=== PATIENT | female | born 1955 | race Caucasian/White ===

== ENCOUNTER 2016-08-15 11:24 | Emergency (ER) | payer OTHER ==
[2016-08-15] MEDS ORDERED: ASPIRIN 81 MG CHEW TABLET As Ordered ONE (11:50)
[2016-08-15 12:17] LABS: BASO % 0.6 % (0.0-1.0); EOS # 0.1 K/mm3 (0.0-0.50); EOS % 1.8 % (0.0-3.0); LARGE UNSTAINED CELL # 0.1 K/mm3 (0.0-0.4); LYMPH # 1.1 K/mm3 (1.5-4.5); MEAN CORPUSCULAR HEMOGLOBIN 29.7 pg (27.0-33.0); MEAN CORPUSCULAR HGB CONC 33.3 g/dl (32.0-36.5); MEAN CORPUSCULAR VOLUME 89.2 fl (80.0-96.0); MONO # 0.3 K/mm3 (0.0-0.8); MONO % 5.9 % (0.0-5.0); NEUTROPHILS # 3.7 K/mm3 (1.8-7.7); NEUTROPHILS % 69.7 % (36.0-66.0); PLATELET COUNT, AUTOMATED 148 k/mm3 (150-450); RED CELL DISTRIBUTION WIDTH 13.5 % (11.5-14.5); WHITE BLOOD COUNT 5.3 K/mm3 (4.0-10.0)
[2016-08-15 12:21] LABS: ANION GAP 9 MEQ/L (8-16); BLOOD UREA NITROGEN 18 MG/DL (7-18); CALCIUM LEVEL 8.5 MG/DL (8.5-10.1); CARBON DIOXIDE LEVEL 25 MEQ/L (21-32); CHLORIDE LEVEL 106 MEQ/L (98-107); GLOMERULAR FILTRATION RATE > 60.0 (>51); GLUCOSE, FASTING 149 MG/DL (70-105); POTASSIUM SERUM 3.5 MEQ/L (3.5-5.1); SODIUM LEVEL 140 MEQ/L (136-145)
[2016-08-15] MEDS ORDERED: methylPREDNISolone INJ 125 MG/2 ML VIAL (J2930) As Ordered ONE (12:42)
--- NOTE | 2016-08-15 12:44 | REP ---
SINGLE VIEW CHEST: AP portable view of the chest is performed and compared to a prior study of 11/22/2015. There is no acute infiltrate or pulmonary edema. The heart is normal in size. There is mild calcification of the thoracic aorta. There is curvature of the thoracic spine convex to the right with degenerative changes. IMPRESSION: No evidence of acute infiltrate. Signed by Denny Roque MD 08/15/2016 06:31 P
[2016-08-15] MEDS ORDERED: IPRATROPIUM 0.5MG/ALBUTEROL 2.5MG INH SOL UD 3ML (DUONEB)(J7620) As Ordered ONE (12:47)
[2016-08-15] MEDS ORDERED: ALBUTEROL SULFATE 2.5 MG/0.5 ML INH NEB SOLN As Ordered ONE (12:48)
[2016-08-15] MEDS ORDERED: ACETAMINOPHEN 325 MG TAB As Ordered ONE (13:06)
--- NOTE | 2016-08-15 15:30 | EDDOCDS ---
Physician Documentation [facility] Name: Janet Jeong Age: 60 yrs Sex: Female : 1955 Arrival Date: 08/15/2016 Time: 11:24 Bed 6 Private MD: Ranulfo Morgan Disposition: 08/15/16 15:09 Discharged to Home/Self Care. Impression: Chronic obstructive pulmonary disease, unspecified. - Condition is Stable. - Discharge Instructions: Chronic Obstructive Pulmonary Disease, How to Use an Inhaler. - Prescriptions for Prednisone 20 mg Oral Tablet - take 3 tablets by ORAL route once daily for 4 days; 12 tablet. Combivent Respimat 20- 100 mcg/actuation Inhalation Mist - inhale 1 puff by INHALATION route 4 times per day not to exceed 6 puffs in 24hrs; 1 Inhaler. Tussionex Pennkinetic ER 8- 10 mg/5 mL Oral Suspension, Sust. Release 12 hr - take 5 milliliter by ORAL route every 12 hours As needed; 120 milliliter. - Medication Reconciliation, Local Pharmacy Hours form. - [facility] up[facility]; When: Call to arrange an appointment; Reason: Recheck today's complaints, Continuance of care. - Problem is an acute exacerbation. - Symptoms have improved. - Notes: Keep hydrated Use the puffer every 4-6 hours as needed Return to the ED for worsening shortness of breath, fever or any other concerns Historical: - Allergies: Augmentin; - Home Meds: 1. aspirin 81 mg Oral chew 1 tab once daily (Last dose: 08/15/2016) 2. lisinopril 40 mg Oral tab 1 tab once daily (Last dose: 08/15/2016) 3. metformin 1,000 mg Oral tab 1 tab 2 times per day (Last dose: 08/15/2016) 4. Protonix 20 mg Oral TbEC 1 tab 2 times per day (Last dose: 08/15/2016) 5. atorvastatin 80 mg oral tab 1 tab once daily (Last dose: 08/15/2016) 6. chlorthalidone 25 mg Oral tab 0.5 tab once daily (Last dose: 08/15/2016) 7. Flonase 50 mcg/actuation Nasal spsn 1 spray once daily 8. loratadine 10 mg Oral tab 1 tab once daily (Last dose: 08/15/2016) 9. montelukast 10 mg oral tab once daily (Last dose: 08/15/2016) 10. Mobic 7.5 mg oral tab twice a day (Last dose: 08/15/2016) 11. encrece inhaler daily (Last dose: 08/15/2016) 12. AYR saline nasal gel each nostril as needed as directed - PMHx: Asthma; Arthritis; COPD; Depression; Diabetes - NIDDM: controlled; Hypercholesterolemia; Hypertension; multiple joint pain; - PSHx: Bladder suspension; Carpal Tunnel Repair- Bilateral; ulnar surgery left elbow; - Social history: Smoking status: Patient uses tobacco products, current every day smoker. No barriers to communication noted, The patient speaks fluent Greenlandic, Speaks appropriately for age. - Family history: Not pertinent. - : The pt / caregiver states he / she is not on anticoagulants. Home medication list is obtained from the patient, [employer] import data. - Exposure Risk Screening:: None identified. Vital Signs: 08/15 11:26 BP 152 / 83; Pulse 92; Resp 18; Temp 98.9(O); Pulse Ox 97% on R/A; Weight 92.08 kg / dem1 203 lbs; Height 5 ft. 3 in. (160.02 cm); Pain 7/10; 12:09 BP 151 / 71 (auto/); kr3 12:10 Pulse 80 MON; Pulse Ox 93% ; kr3 12:43 BP 133 / 66 (auto/); kr3 12:44 Pulse 76 MON; Pulse Ox 96% ; kr3 13:09 BP 133 / 61 (auto/); kr3 13:10 Pulse 84 MON; Pulse Ox 95% ; kr3 13:39 BP 134 / 63 (auto/); kr3 13:40 Pulse 86 MON; Pulse Ox 92% ; kr3 13:48 Pain 2/10; kr3 14:09 BP 137 / 61 (auto/); kr3 14:10 Pulse 88 MON; Pulse Ox 94% ; kr3 14:39 BP 129 / 62 (auto/); jmb 14:40 Pulse 82 MON; Pulse Ox 91% ; jmb 15:22 BP 134 / 63; Pulse 85; Resp 18; Temp 97.7(TE); Pulse Ox 94% on R/A; Pain 3/10; dem1 11:26 Body Mass Index 35.96 (92.08 kg, 160.02 cm) dem1 MDM: 11:30 ECG WITH READING ER PHYS+CARDIAG ordered. EDMS 11:39 Aspirin Chewable Tablet 324 mg PO once ordered. fg 11:39 Asphalt Engineer/Pulse Ox/q 30 min VS ordered. fg 11:39 IV Saline Lock ordered. fg 11:39 Rhythm Strip to chart ordered. fg 11:39 Undress patient appropriately for examination ordered. fg 11:40 B-Type Natiuretic Peptide Ordered. EDMS 11:40 Basic Metabolic Profile Ordered. EDMS 11:40 CBC with Diff Ordered. EDMS 11:40 Cardiac Injury Profile Ordered. EDMS 11:40 Troponin Ordered. EDMS 11:41 portable chest Ordered. EDMS 12:29 D-Dimer Quant Ordered. EDMS 12:35 Albuterol 5 mg Nebulizer once ordered. le 12:35 Albuterol-Ipratropium 3 ml Inhalation once ordered. le 12:35 Call Respiratory ordered. le 12:35 Solu-MEDROL 125 mg IVP once ordered. le 12:35 Basic Metabolic Profile Reviewed. le 12:35 CBC with Diff Reviewed. le 12:35 Cardiac Injury Profile Reviewed. le 12:35 Troponin Reviewed. le 12:36 CONSISTENT CARBOHYDRATE+DIET ordered. EDMS 12:41 Call Respiratory complete. kr3 12:54 Acetaminophen Tablet 975 mg PO once ordered. le 12:54 B-Type Natiuretic Peptide Reviewed. le 12:54 D-Dimer Quant Reviewed. le 12:54 portable chest Reviewed. le 13:04 Financial registration complete. mm15 13:13 [facility] Payment Agreement was scanned into [employer] and attached to record. mm15 Administered Medications: 11:53 Drug: Aspirin 324 mg [aspirin 81 mg chewable tablet (4 tabs)] Route: PO; kr3 12:45 Drug: Solu-MEDROL 125 mg [Solu-Medrol 500 mg intravenous solution (125 mg)] Route: IVP; kr3 Site: left antecubital; 14:14 Follow up: Response: No Adverse Reaction kr3 12:50 Drug: Albuterol 5 mg [albuterol sulfate 2.5 mg/0.5 mL solution for nebulization (1 mL)] js11 Route: Nebulizer; 12:50 Drug: Albuterol-Ipratropium 3 ml [ipratropium-albuterol 0.5 mg-3 mg(2.5 mg base)/3 mL js11 nebulization soln (3 mL)] Route: Inhalation; 13:10 Drug: Acetaminophen 975 mg [acetaminophen 325 mg tablet (3 tabs)] Route: PO; kr3 13:48 Follow up: Pain 08/08 Adult; Response: Pain is decreased kr3 Signatures: Dispatcher [employer] EDMS Mary Estes RN RN kr3 Tata Smith FNP FNP le McGrath, Marlynn mm15 Jony Samson RN RN Susan Lunsford MD MD fg Sawyer, Jordan js11 The chart was reviewed and I authenticate all verbal orders and agree with the evaluation and treatment provided.Attachments: 13:13 [facility] Payment Agreement mm15 MTDD
--- NOTE | 2016-08-15 15:30 | EDDOCDS ---
Nurse's Notes [facility] Name: Janet Jeong Age: 60 yrs Sex: Female : 1955 Arrival Date: 08/15/2016 Time: 11:24 Bed 6 Private MD: Ranulfo Morgan Diagnosis: Chronic obstructive pulmonary disease, unspecified Presentation: 08/15 11:30 Presenting complaint: Patient states: dull uncomfortable feeling center of chest for 4 kr3 days. Pain intermittent, worse pain 9/10 last night. Aspirin was taken SANFORIZER. Adult Sepsis Screening: The patient does not have new or worsening altered mentation. Patient's respiratory rate is less than 22. Systolic blood pressure is greater than 100. Patient has a qSOFA score of 0- Negative Sepsis Screen. Suicide/Homicide risk assessment- the patient denies having any suicidal and/or homicidal ideations and does not present with any other emotional, behavioral or mental health complaints. Status: Patient is not a automotive service management teacher or dependent. Transition of care: patient was received from a primary care office; [facility]. 11:30 Acuity: IMAN Level 2 kr3 11:30 Method Of Arrival: Walkin/Carried/Asstd kr3 Triage Assessment: 11:36 General: Appears in no apparent distress, comfortable, Behavior is appropriate for age, kr3 cooperative. Pain: Pain currently is 5 out of 10 on a pain scale. Quality of pain is described as pressure. HIV screening NA for this visit Offered previously. The patient is triaged at the bedside. See Assessment in Nurses Notes section of ED record. Neurological: Level of Consciousness is awake, alert. Cardiovascular: Chest pain is described as mild, radiates Does not radiate. episodes are intermittent began 4 days ago. Respiratory: Breath sounds are coarse bilaterally. Reports Denies shortness of breath. GI: Denies nausea. Derm: Skin is pink, warm & dry. Historical: - Allergies: Augmentin; - Home Meds: 1. aspirin 81 mg Oral chew 1 tab once daily (Last dose: 08/15/2016) 2. lisinopril 40 mg Oral tab 1 tab once daily (Last dose: 08/15/2016) 3. metformin 1,000 mg Oral tab 1 tab 2 times per day (Last dose: 08/15/2016) 4. Protonix 20 mg Oral TbEC 1 tab 2 times per day (Last dose: 08/15/2016) 5. atorvastatin 80 mg oral tab 1 tab once daily (Last dose: 08/15/2016) 6. chlorthalidone 25 mg Oral tab 0.5 tab once daily (Last dose: 08/15/2016) 7. Flonase 50 mcg/actuation Nasal spsn 1 spray once daily 8. loratadine 10 mg Oral tab 1 tab once daily (Last dose: 08/15/2016) 9. montelukast 10 mg oral tab once daily (Last dose: 08/15/2016) 10. Mobic 7.5 mg oral tab twice a day (Last dose: 08/15/2016) 11. encrece inhaler daily (Last dose: 08/15/2016) 12. AYR saline nasal gel each nostril as needed as directed - PMHx: Asthma; Arthritis; COPD; Depression; Diabetes - NIDDM: controlled; Hypercholesterolemia; Hypertension; multiple joint pain; - PSHx: Bladder suspension; Carpal Tunnel Repair- Bilateral; ulnar surgery left elbow; - Social history: Smoking status: Patient uses tobacco products, current every day smoker. No barriers to communication noted, The patient speaks fluent Guinean, Speaks appropriately for age. - Family history: Not pertinent. - : The pt / caregiver states he / she is not on anticoagulants. Home medication list is obtained from the patient, [employer] import data. - Exposure Risk Screening:: None identified. Screenin:39 Screening information is obtained from the patient. Fall risk: No risks identified. kr3 Assistance ADL's: requires no assistance with activities of daily living. Abuse/DV Screen: The patient / caregiver reports he/she is: not in a situation that causes fear, pain or injury. Nutritional screening: No deficits noted. Advance Directives: Currently, there is no health care proxy. There is no Power of Experimental Machinist. home support is adequate. Assessment: 11:53 General: Appears in no apparent distress, comfortable, Behavior is cooperative. kr3 Cardiovascular: Rhythm is regular. 12:50 Reassessment: Patient appears in no apparent distress at this time. resting on kr3 stretcher watching TV. Has ambulated to bathroom times 1. 13:28 Reassessment: patient reports chest discomfort 5/10 and was medicated as charted. kr3 14:30 Reassessment: Patient appears in no apparent distress at this time. sitting on kr3 stretcher edge watching TV. Respiratory: Respiratory effort is even, unlabored. Derm: Skin is normal. 15:27 General: Patient instructed on discharge instructions. Patient asked if there were any [facility] questions regarding discharge, patient stated no. IV discontinued per hospital policy. Patient signed discharge instructions. Patient discharged in stable condition. . Vital Signs: 11:26 BP 152 / 83; Pulse 92; Resp 18; Temp 98.9(O); Pulse Ox 97% on R/A; Weight 92.08 kg; dem1 Height 5 ft. 3 in. (160.02 cm); Pain 7/10; 12:09 BP 151 / 71 (auto/); kr3 12:10 Pulse 80 MON; Pulse Ox 93% ; kr3 12:43 BP 133 / 66 (auto/); kr3 12:44 Pulse 76 MON; Pulse Ox 96% ; kr3 13:09 BP 133 / 61 (auto/); kr3 13:10 Pulse 84 MON; Pulse Ox 95% ; kr3 13:39 BP 134 / 63 (auto/); kr3 13:40 Pulse 86 MON; Pulse Ox 92% ; kr3 13:48 Pain 2/10; kr3 14:09 BP 137 / 61 (auto/); kr3 14:10 Pulse 88 MON; Pulse Ox 94% ; kr3 14:39 BP 129 / 62 (auto/); jmb 14:40 Pulse 82 MON; Pulse Ox 91% ; jmb 15:22 BP 134 / 63; Pulse 85; Resp 18; Temp 97.7(TE); Pulse Ox 94% on R/A; Pain 3/10; dem1 11:26 Body Mass Index 35.96 (92.08 kg, 160.02 cm) dem1 Vitals: 11:26 Log In Time: August 15, 2016 at 11:23. RN notified that patient meets Red Flag dem1 criteria. ED Course: 11:25 Patient visited by Theo Araujo. dem1 11:25 Patient moved to Waiting dem1 11:26 Ranulfo Morgan is Private Physician. dem1 11:26 Patient visited by Theo Araujo. dem1 11:28 Mary Estes,RN is Primary Nurse. ttb 11:28 Patient moved to 6 ttb 11:33 Triage Initiated kr3 11:39 The patient / caregiver is instructed regarding the plan of care and ED course. Patient robbie has correct armband on for positive identification. Placed in gown. Bed in low position. Call light in reach. Side rails up X 1. welding technician on. Pulse ox on. NIBP on. 11:50 B-Type Natiuretic Peptide Sent. kr3 11:50 Basic Metabolic Profile Sent. kr3 11:50 CBC with Diff Sent. kr3 11:50 Cardiac Injury Profile Sent. kr3 11:50 Troponin Sent. kr3 12:03 Patient visited by Noemí Metzger PCA. ct3 12:16 Tata Smith FNP is PHCP. le 12:17 Patient visited by Tata Smith FNP. le 12:47 portable chest Returned. EDMS 13:03 Patient visited by Mary Estes RN. kr3 13:13 [facility] Payment Agreement was scanned into [employer] and attached to record. mm15 13:48 Patient visited by Mary Estes RN. kr3 14:03 Diet: diet caloric controlled was given to patient.. ct3 14:30 Patient visited by Mary Estes RN. kr3 15:07 Primary Nurse role handed off by Mary Estes RN kr3 15:09 Patient visited by Noemí Metzger PCA. ct3 15:09 [facility] is Referral Physician. le 15:22 Patient visited by Theo Araujo. dem1 15:27 Discontinued lock intact, bleeding controlled, pressure dressing applied, No jmb redness/swelling at site. No procedures done that require assistance. Administered Medications: 11:53 Drug: Aspirin 324 mg [aspirin 81 mg chewable tablet (4 tabs)] Route: PO; kr3 12:45 Drug: Solu-MEDROL 125 mg [Solu-Medrol 500 mg intravenous solution (125 mg)] Route: IVP; kr3 Site: left antecubital; 14:14 Follow up: Response: No Adverse Reaction kr3 12:50 Drug: Albuterol 5 mg [albuterol sulfate 2.5 mg/0.5 mL solution for nebulization (1 mL)] js11 Route: Nebulizer; 12:50 Drug: Albuterol-Ipratropium 3 ml [ipratropium-albuterol 0.5 mg-3 mg(2.5 mg base)/3 mL js11 nebulization soln (3 mL)] Route: Inhalation; 13:10 Drug: Acetaminophen 975 mg [acetaminophen 325 mg tablet (3 tabs)] Route: PO; kr3 13:48 Follow up: Pain 2 Adult; Response: Pain is decreased kr3 RT: 12:50 Initial Med Neb Given as ordered Patient was instructed and evaluated on procedure js11 Patient tolerated procedure well without adverse effect. Oxygen is room air. Respiratory: Breath sounds are coarse Breath sounds with wheezes bilaterally. at expiration at inspiration. Order Results: Lab Order: B-Type Natiuretic Peptide; SPEC'M 08/15/16 11:47 Test: BRAIN NATRIURETIC PEPTIDE; Value: 54.1; Range: <100; Units: PG/ML; Status: F Lab Order: Basic Metabolic Profile; SPEC'M 08/15/16 11:47 Test: GLUCOSE, FASTING; Value: 149; Range: 70-105; Abnormal: Above high normal; Units: MG/DL; Status: F Test: BLOOD UREA NITROGEN; Value: 18; Range: 7-18; Units: MG/DL; Status: F Test: CREATININE FOR GFR; Value: 1.00; Range: 0.55-1.02; Units: MG/DL; Status: F Test: GLOMERULAR FILTRATION RATE; Value: > 60.0; Range: >51; Status: F Test: SODIUM LEVEL; Value: 140; Range: 136-145; Units: MEQ/L; Status: F Test: POTASSIUM SERUM; Value: 3.5; Range: 3.5-5.1; Units: MEQ/L; Status: F Test: CHLORIDE LEVEL; Value: 106; Range: 98-107; Units: MEQ/L; Status: F Test: CARBON DIOXIDE LEVEL; Value: 25; Range: 21-32; Units: MEQ/L; Status: F Test: ANION GAP; Value: 9; Range: 8-16; Units: MEQ/L; Status: F Test: CALCIUM LEVEL; Value: 8.5; Range: 8.5-10.1; Units: MG/DL; Status: F Test Note: ; Units are mL/min/1.73 m2 Chronic Kidney Disease Staging per NKF: Stage I & II GFR >=60 Normal to Mildly Decreased Stage III GFR 30-59 Moderately Decreased Stage IV GFR 15-29 Severely Decreased Stage V GFR <15 Very Little GFR Left ESRD GFR <15 on PROCESS SAFETY SPECIALIST Lab Order: CBC with Diff; SPEC'M 08/15/16 11:47 Test: WHITE BLOOD COUNT; Value: 5.3; Range: 4.0-10.0; Units: K/mm3; Status: F Test: RED BLOOD COUNT; Value: 4.65; Range: 4.00-5.40; Units: M/mm3; Status: F Test: HEMOGLOBIN; Value: 13.8; Range: 12.0-16.0; Units: g/dl; Status: F Test: HEMATOCRIT; Value: 41.4; Range: 36.0-47.0; Units: %; Status: F Test: MEAN CORPUSCULAR VOLUME; Value: 89.2; Range: 80.0-96.0; Units: fl; Status: F Test: MEAN CORPUSCULAR HEMOGLOBIN; Value: 29.7; Range: 27.0-33.0; Units: pg; Status: F Test: MEAN CORPUSCULAR HGB CONC; Value: 33.3; Range: 32.0-36.5; Units: g/dl; Status: F Test: RED CELL DISTRIBUTION WIDTH; Value: 13.5; Range: 11.5-14.5; Units: %; Status: F Test: PLATELET COUNT, AUTOMATED; Value: 148; Range: 150-450; Abnormal: Below low normal; Units: k/mm3; Status: F Test: NEUTROPHILS %; Value: 69.7; Range: 36.0-66.0; Abnormal: Above high normal; Units: %; Status: F Test: LYMPH %; Value: 20.0; Range: 24.0-44.0; Abnormal: Below low normal; Units: %; Status: F Test: MONO %; Value: 5.9; Range: 0.0-5.0; Abnormal: Above high normal; Units: %; Status: F Test: EOS %; Value: 1.8; Range: 0.0-3.0; Units: %; Status: F Test: BASO %; Value: 0.6; Range: 0.0-1.0; Units: %; Status: F Test: LARGE UNSTAINED CELL %; Value: 2.0; Range: 0.0-4.0; Units: %; Status: F Test: NEUTROPHILS #; Value: 3.7; Range: 1.8-7.7; Units: K/mm3; Status: F Test: LYMPH #; Value: 1.1; Range: 1.5-4.5; Abnormal: Below low normal; Units: K/mm3; Status: F Test: MONO #; Value: 0.3; Range: 0.0-0.8; Units: K/mm3; Status: F Test: EOS #; Value: 0.1; Range: 0.0-0.50; Units: K/mm3; Status: F Test: BASO #; Value: 0.0; Range: 0.0-0.2; Units: K/mm3; Status: F Test: LARGE UNSTAINED CELL #; Value: 0.1; Range: 0.0-0.4; Units: K/mm3; Status: F Lab Order: Cardiac Injury Profile; SPEC'M 08/15/16 11:47 Test: CPK CREATINE PHOSPHOKINASE; Value: 115; Range: 26-192; Units: U/L; Status: F Test: CK-MB VALUE MASS; Value: 1.9; Range: 0.0-3.6; Units: NG/ML; Status: F Test: MB/CK RELATIVE INDEX; Value: 1.65; Range: < OR =4; Status: F Test Note: ; DIAGNOSIS CRITERIA MMB ng/ml Relative Index (RI) NON-AMI < or = 5 N/A PATRICK ZONE > 5 < or = 4 AMI > 5 > 4 Lab Order: Troponin; SPEC'M 08/15/16 11:47 Test: TROPONIN I; Value: < 0.02; Range: < 0.10; Units: NG/ML; Status: F Test Note: ; Troponin I Reference Interval for nChannel LOCI: 99th Percentile= 0.00-0.045 ng/ml Risk Stratification: <= 0.10 ng/ml Decreased Risk for Adverse Clinical Events. 0.10-1.50 ng/ml Increased Risk for Adverse Clinical Events. Evaluation of additional criterion and/or repeat testing in 2-6 hours is suggested to rule out myocardial damage. >= 1.50 ng/ml Indicative of Myocardial Injury. Lab Order: D-Dimer Quant; SPEC'M 08/15/16 11:47 Test: D-DIMER QUANT; Value: 394.3; Range: <500; Units: ng/ml; Status: F Radiology Order: portable chest Test: portable chest REASON FOR EXAMINATION: Chest Pain; ; SINGLE VIEW CHEST:; ; AP portable view of the chest is performed and compared to a prior study of; 11/22/2015. There is no acute infiltrate or pulmonary edema. The heart is normal; in size. There is mild calcification of the thoracic aorta. There is curvature; of the thoracic spine convex to the right with degenerative changes.; ; IMPRESSION:; No evidence of acute infiltrate.; ; ; ; Unreviewed; Outcome: 15:09 Discharge ordered by Provider. alivia 15:27 Discharge Assessment: Patient awake, alert and oriented x 3. No cognitive and/or jmb functional deficits noted. Patient verbalized understanding of disposition instructions. Patient awake and alert. obeys commands, Oriented to person, place and time. Patient verbalized understanding of disposition instructions. Patient has no functional deficits. patient administered narcotics - no. The following High Risk Discharge criteria are identified: None. Discharged to home ambulatory. Condition: stable Condition: improved. Discharge instructions given to patient, Instructed on discharge instructions, follow up and referral plans. medication usage, Demonstrated understanding of instructions, medications, Pt was receptive of discharge instructions/ teaching. Prescriptions given X 3. No special radiology studies were completed. Property sent home with patient. 15:29 Patient left the ED. elis Signatures: Dispatcher [employer] EDMary Hogue,RN RN kr3 Tata Smith, SHANK MAKER SHANK MAKER Noemí Andre, STAMPING MILL TENDER STAMPING MILL TENDER ct3 [place] js11 Theo Araujo1 Aida Thrasher RN RN ttb McGrath, Marlynn mm15 Jony Samson RN RN jmb MTDD
--- NOTE | 2016-08-15 19:57 | ECGEPIP ---
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
--- NOTE | 2016-08-17 16:30 | EDDOCDS ---
Nurse's Notes [facility] Name: Darrell Alva Age: 60 yrs Sex: Female : 1955 Arrival Date: 08/15/2016 Time: 11:24 Bed 6 Private MD: Ranulfo Morgan Diagnosis: Chronic obstructive pulmonary disease, unspecified Presentation: 08/15 11:30 Presenting complaint: Patient states: dull uncomfortable feeling center of chest for 4 kr3 days. Pain intermittent, worse pain 9/10 last night. 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 Adult Sepsis Screening: The patient does not have new or worsening altered mentation. Patient's respiratory rate is less than 22. Systolic blood pressure is greater than 100. Patient has a qSOFA score of 0- Negative Sepsis Screen. Suicide/Homicide risk assessment- the patient denies having any suicidal and/or homicidal ideations and does not present with any other emotional, behavioral or mental health complaints. Status: Patient is not a valet service attendant or dependent. Transition of care: patient was received from a primary care office; [facility]. 11:30 Acuity: IMAN Level 2 kr3 11:30 Method Of Arrival: Walkin/Carried/Asstd kr3 Triage Assessment: 11:36 General: Appears in no apparent distress, comfortable, Behavior is appropriate for age, kr3 cooperative. Pain: Pain currently is 5 out of 10 on a pain scale. Quality of pain is described as pressure. HIV screening NA for this visit Offered previously. The patient is triaged at the bedside. See Assessment in Nurses Notes section of ED record. Neurological: Level of Consciousness is awake, alert. Cardiovascular: Chest pain is described as mild, radiates Does not radiate. episodes are intermittent began 4 days ago. Respiratory: Breath sounds are coarse bilaterally. Reports Denies shortness of breath. GI: Denies nausea. Derm: Skin is pink, warm & dry. Historical: - Allergies: Augmentin; - Home Meds: 1. aspirin 81 mg Oral chew 1 tab once daily (Last dose: 08/15/2016) 2. lisinopril 40 mg Oral tab 1 tab once daily (Last dose: 08/15/2016) 3. metformin 1,000 mg Oral tab 1 tab 2 times per day (Last dose: 08/15/2016) 4. Protonix 20 mg Oral TbEC 1 tab 2 times per day (Last dose: 08/15/2016) 5. atorvastatin 80 mg oral tab 1 tab once daily (Last dose: 08/15/2016) 6. chlorthalidone 25 mg Oral tab 0.5 tab once daily (Last dose: 08/15/2016) 7. Flonase 50 mcg/actuation Nasal spsn 1 spray once daily 8. loratadine 10 mg Oral tab 1 tab once daily (Last dose: 08/15/2016) 9. montelukast 10 mg oral tab once daily (Last dose: 08/15/2016) 10. Mobic 7.5 mg oral tab twice a day (Last dose: 08/15/2016) 11. encrece inhaler daily (Last dose: 08/15/2016) 12. AYR saline nasal gel each nostril as needed as directed - PMHx: Asthma; Arthritis; COPD; Depression; Diabetes - NIDDM: controlled; Hypercholesterolemia; Hypertension; multiple joint pain; - PSHx: Bladder suspension; Carpal Tunnel Repair- Bilateral; ulnar surgery left elbow; - Social history: Smoking status: Patient uses tobacco products, current every day smoker. No barriers to communication noted, The patient speaks fluent Bahamian, Speaks appropriately for age. - Family history: Not pertinent. - : The pt / caregiver states he / she is not on anticoagulants. Home medication list is obtained from the patient, [employer] import data. - Exposure Risk Screening:: None identified. Screenin:39 Screening information is obtained from the patient. Fall risk: No risks identified. kr3 Assistance ADL's: requires no assistance with activities of daily living. Abuse/DV Screen: The patient / caregiver reports he/she is: not in a situation that causes fear, pain or injury. Nutritional screening: No deficits noted. Advance Directives: Currently, there is no health care proxy. There is no Power of Tobacco Drummer. home support is adequate. Assessment: 11:53 General: Appears in no apparent distress, comfortable, Behavior is cooperative. kr3 Cardiovascular: Rhythm is regular. 12:50 Reassessment: Patient appears in no apparent distress at this time. resting on kr3 stretcher watching TV. Has ambulated to bathroom times 1. 13:28 Reassessment: patient reports chest discomfort 5/10 and was medicated as charted. kr3 14:30 Reassessment: Patient appears in no apparent distress at this time. sitting on kr3 stretcher edge watching TV. Respiratory: Respiratory effort is even, unlabored. Derm: Skin is normal. 15:27 General: Patient instructed on discharge instructions. Patient asked if there were any [facility] questions regarding discharge, patient stated no. IV discontinued per hospital policy. Patient signed discharge instructions. Patient discharged in stable condition. . Vital Signs: 11:26 BP 152 / 83; Pulse 92; Resp 18; Temp 98.9(O); Pulse Ox 97% on R/A; Weight 92.08 kg; dem1 Height 5 ft. 3 in. (160.02 cm); Pain 7/10; 12:09 BP 151 / 71 (auto/); kr3 12:10 Pulse 80 MON; Pulse Ox 93% ; kr3 12:43 BP 133 / 66 (auto/); kr3 12:44 Pulse 76 MON; Pulse Ox 96% ; kr3 13:09 BP 133 / 61 (auto/); kr3 13:10 Pulse 84 MON; Pulse Ox 95% ; kr3 13:39 BP 134 / 63 (auto/); kr3 13:40 Pulse 86 MON; Pulse Ox 92% ; kr3 13:48 Pain 2/10; kr3 14:09 BP 137 / 61 (auto/); kr3 14:10 Pulse 88 MON; Pulse Ox 94% ; kr3 14:39 BP 129 / 62 (auto/); jmb 14:40 Pulse 82 MON; Pulse Ox 91% ; jmb 15:22 BP 134 / 63; Pulse 85; Resp 18; Temp 97.7(TE); Pulse Ox 94% on R/A; Pain 3/10; dem1 11:26 Body Mass Index 35.96 (92.08 kg, 160.02 cm) dem1 Vitals: 11:26 Log In Time: August 15, 2016 at 11:23. RN notified that patient meets Red Flag dem1 criteria. ED Course: 11:25 Patient visited by Theo Araujo. dem1 11:25 Patient moved to Waiting dem1 11:26 Ranulfo Morgan is Private Physician. dem1 11:26 Patient visited by Theo Araujo. dem1 11:28 Mary Estes,RN is Primary Nurse. ttb 11:28 Patient moved to 6 ttb 11:33 Triage Initiated kr3 11:39 The patient / caregiver is instructed regarding the plan of care and ED course. Patient robbie has correct armband on for positive identification. Placed in gown. Bed in low position. Call light in reach. Side rails up X 1. playground monitor on. Pulse ox on. NIBP on. 11:50 B-Type Natiuretic Peptide Sent. kr3 11:50 Basic Metabolic Profile Sent. kr3 11:50 CBC with Diff Sent. kr3 11:50 Cardiac Injury Profile Sent. kr3 11:50 Troponin Sent. kr3 12:03 Patient visited by Noemí Metzger PCA. ct3 12:16 Tata Smith FNP is PHCP. le 12:17 Patient visited by Tata Smith FNP. le 12:47 portable chest Returned. EDMS 13:03 Patient visited by Mary Estes RN. kr3 13:13 [facility] Payment Agreement was scanned into streamit and attached to record. mm15 13:48 Patient visited by Mary Estes RN. kr3 14:03 Diet: diet caloric controlled was given to patient.. ct3 14:30 Patient visited by Mary Estes RN. kr3 15:07 Primary Nurse role handed off by Mary Estes RN kr3 15:09 Patient visited by Noemí Metzger PCA. ct3 15:09 [facility] is Referral Physician. le 15:22 Patient visited by Theo Araujo. dem1 15:27 Discontinued lock intact, bleeding controlled, pressure dressing applied, No jmb redness/swelling at site. No procedures done that require assistance. 19:06 portable chest Returned. EDMS 20:03 EKG-ADULT Returned. EDMS 08/16 11:23 T-Sheet-- Draft Copy was scanned into streamit and attached to record. gb 11:23 ECG/EKG was scanned into streamit and attached to record. gb 11:23 Trend VS was scanned into streamit and attached to record. gb Administered Medications: 08/15 11:53 Drug: Aspirin 324 mg [aspirin 81 mg chewable tablet (4 tabs)] Route: PO; kr3 12:45 Drug: Solu-MEDROL 125 mg [Solu-Medrol 500 mg intravenous solution (125 mg)] Route: IVP; kr3 Site: left antecubital; 14:14 Follow up: Response: No Adverse Reaction kr3 12:50 Drug: Albuterol 5 mg [albuterol sulfate 2.5 mg/0.5 mL solution for nebulization (1 mL)] js11 Route: Nebulizer; 12:50 Drug: Albuterol-Ipratropium 3 ml [ipratropium-albuterol 0.5 mg-3 mg(2.5 mg base)/3 mL js11 nebulization soln (3 mL)] Route: Inhalation; 13:10 Drug: Acetaminophen 975 mg [acetaminophen 325 mg tablet (3 tabs)] Route: PO; kr3 13:48 Follow up: Pain 08/08 Adult; Response: Pain is decreased kr3 Attachments: 11:23 Trend VS gb RT: 08/15 12:50 Initial Med Neb Given as ordered Patient was instructed and evaluated on procedure js11 Patient tolerated procedure well without adverse effect. Oxygen is room air. Respiratory: Breath sounds are coarse Breath sounds with wheezes bilaterally. at expiration at inspiration. Order Results: Lab Order: B-Type Natiuretic Peptide; SPEC'M 08/15/16 11:47 Test: BRAIN NATRIURETIC PEPTIDE; Value: 54.1; Range: <100; Units: PG/ML; Status: F Lab Order: Basic Metabolic Profile; SPEC'M 08/15/16 11:47 Test: GLUCOSE, FASTING; Value: 149; Range: 70-105; Abnormal: Above high normal; Units: MG/DL; Status: F Test: BLOOD UREA NITROGEN; Value: 18; Range: 7-18; Units: MG/DL; Status: F Test: CREATININE FOR GFR; Value: 1.00; Range: 0.55-1.02; Units: MG/DL; Status: F Test: GLOMERULAR FILTRATION RATE; Value: > 60.0; Range: >51; Status: F Test: SODIUM LEVEL; Value: 140; Range: 136-145; Units: MEQ/L; Status: F Test: POTASSIUM SERUM; Value: 3.5; Range: 3.5-5.1; Units: MEQ/L; Status: F Test: CHLORIDE LEVEL; Value: 106; Range: 98-107; Units: MEQ/L; Status: F Test: CARBON DIOXIDE LEVEL; Value: 25; Range: 21-32; Units: MEQ/L; Status: F Test: ANION GAP; Value: 9; Range: 8-16; Units: MEQ/L; Status: F Test: CALCIUM LEVEL; Value: 8.5; Range: 8.5-10.1; Units: MG/DL; Status: F Test Note: ; Units are mL/min/1.73 m2 Chronic Kidney Disease Staging per NKF: Stage I & II GFR >=60 Normal to Mildly Decreased Stage III GFR 30-59 Moderately Decreased Stage IV GFR 15-29 Severely Decreased Stage V GFR <15 Very Little GFR Left ESRD GFR <15 on MACHINE LOADER Lab Order: CBC with Diff; SPEC'M 08/15/16 11:47 Test: WHITE BLOOD COUNT; Value: 5.3; Range: 4.0-10.0; Units: K/mm3; Status: F Test: RED BLOOD COUNT; Value: 4.65; Range: 4.00-5.40; Units: M/mm3; Status: F Test: HEMOGLOBIN; Value: 13.8; Range: 12.0-16.0; Units: g/dl; Status: F Test: HEMATOCRIT; Value: 41.4; Range: 36.0-47.0; Units: %; Status: F Test: MEAN CORPUSCULAR VOLUME; Value: 89.2; Range: 80.0-96.0; Units: fl; Status: F Test: MEAN CORPUSCULAR HEMOGLOBIN; Value: 29.7; Range: 27.0-33.0; Units: pg; Status: F Test: MEAN CORPUSCULAR HGB CONC; Value: 33.3; Range: 32.0-36.5; Units: g/dl; Status: F Test: RED CELL DISTRIBUTION WIDTH; Value: 13.5; Range: 11.5-14.5; Units: %; Status: F Test: PLATELET COUNT, AUTOMATED; Value: 148; Range: 150-450; Abnormal: Below low normal; Units: k/mm3; Status: F Test: NEUTROPHILS %; Value: 69.7; Range: 36.0-66.0; Abnormal: Above high normal; Units: %; Status: F Test: LYMPH %; Value: 20.0; Range: 24.0-44.0; Abnormal: Below low normal; Units: %; Status: F Test: MONO %; Value: 5.9; Range: 0.0-5.0; Abnormal: Above high normal; Units: %; Status: F Test: EOS %; Value: 1.8; Range: 0.0-3.0; Units: %; Status: F Test: BASO %; Value: 0.6; Range: 0.0-1.0; Units: %; Status: F Test: LARGE UNSTAINED CELL %; Value: 2.0; Range: 0.0-4.0; Units: %; Status: F Test: NEUTROPHILS #; Value: 3.7; Range: 1.8-7.7; Units: K/mm3; Status: F Test: LYMPH #; Value: 1.1; Range: 1.5-4.5; Abnormal: Below low normal; Units: K/mm3; Status: F Test: MONO #; Value: 0.3; Range: 0.0-0.8; Units: K/mm3; Status: F Test: EOS #; Value: 0.1; Range: 0.0-0.50; Units: K/mm3; Status: F Test: BASO #; Value: 0.0; Range: 0.0-0.2; Units: K/mm3; Status: F Test: LARGE UNSTAINED CELL #; Value: 0.1; Range: 0.0-0.4; Units: K/mm3; Status: F Lab Order: Cardiac Injury Profile; SPEC' 08/15/16 11:47 Test: CPK CREATINE PHOSPHOKINASE; Value: 115; Range: 26-192; Units: U/L; Status: F Test: CK-MB VALUE MASS; Value: 1.9; Range: 0.0-3.6; Units: NG/ML; Status: F Test: MB/CK RELATIVE INDEX; Value: 1.65; Range: < OR =4; Status: F Test Note: ; DIAGNOSIS CRITERIA MMB ng/ml Relative Index (RI) NON-AMI < or = 5 N/A [place] > 5 < or = 4 AMI > 5 > 4 Lab Order: Troponin; SPEC' 08/15/16 11:47 Test: TROPONIN I; Value: < 0.02; Range: < 0.10; Units: NG/ML; Status: F Test Note: ; Troponin I Reference Interval for Siemens [place] LOCI: 99th Percentile= 0.00-0.045 ng/ml Risk Stratification: <= 0.10 ng/ml Decreased Risk for Adverse Clinical Events. 0.10-1.50 ng/ml Increased Risk for Adverse Clinical Events. Evaluation of additional criterion and/or repeat testing in 2-6 hours is suggested to rule out myocardial damage. >= 1.50 ng/ml Indicative of Myocardial Injury. Lab Order: D-Dimer Quant; SPEC'M 08/15/16 11:47 Test: D-DIMER QUANT; Value: 394.3; Range: <500; Units: ng/ml; Status: F Radiology Order: EKG-ADULT Test: EKG-ADULT REASON FOR EXAMINATION: Chest Pain; Stationary ECG Study; [facility] - ED; ; Test Date: 2016-08-15; Pat Name: DARRELL ALVA Department:; Room: -; Gender: F County Director: [place]; : 1955 Requested By: ARIANNE Perdomo; Order Number: [id number] Reading MD: Joceline Solomon; Measurements; Intervals [place]; Rate: 88 P: 61; NC: 144 QRS: 8; QRSD: 93 T: 37; QT: 365; QTc: 443; Interpretive Statements; SINUS RHYTHM; LOW QRS VOLTAGE IN PRECORDIAL LEADS; NSTTW ABNORMALITY; INCREASED RATE 11/22/15; Electronically Signed On 08-15-2016 19:57:06 EST by Joceline Solomon; Radiology Order: portable chest Test: portable chest REASON FOR EXAMINATION: Chest Pain; SINGLE VIEW CHEST:; ; AP portable view of the chest is performed and compared to a prior study of; 11/22/2015. There is no acute infiltrate or pulmonary edema. The heart is normal; in size. There is mild calcification of the thoracic aorta. There is curvature; of the thoracic spine convex to the right with degenerative changes.; ; IMPRESSION:; ; No evidence of acute infiltrate.; ; ; Signed by; Denny Roque MD 08/15/2016 06:31 P; Outcome: 15:09 Discharge ordered by Provider. le 15:27 Discharge Assessment: Patient awake, alert and oriented x 3. No cognitive and/or jmb functional deficits noted. Patient verbalized understanding of disposition instructions. Patient awake and alert. obeys commands, Oriented to person, place and time. Patient verbalized understanding of disposition instructions. Patient has no functional deficits. patient administered narcotics - no. The following High Risk Discharge criteria are identified: None. Discharged to home ambulatory. Condition: stable Condition: improved. Discharge instructions given to patient, Instructed on discharge instructions, follow up and referral plans. medication usage, Demonstrated understanding of instructions, medications, Pt was receptive of discharge instructions/ teaching. Prescriptions given X 3. No special radiology studies were completed. Property sent home with patient. 15:29 Patient left the ED. elis Signatures: Dispatcher [employer] EDMS Katelyn Bobby, Reg Reg gb Mary Estes,RN RN kr3 Tata Smith, LOAN AND CREDIT MANAGER LOAN AND CREDIT MANAGER Noemí Andre, LABOR CREW SUPERVISOR LABOR CREW SUPERVISOR ct3 Ac [place] js11 Theo Araujo dem1 Aida Thrasher, RN RN ttb Marielos Mena mm15 Jony Samson,ELIDA ramosb Chart Complete [facility]ITAL[facility]elaida
--- NOTE | 2016-08-17 16:30 | EDDOCDS ---
Physician Documentation [facility] Name: Janet Jeong Age: 60 yrs Sex: Female : 1955 Arrival Date: 08/15/2016 Time: 11:24 Bed 6 Private MD: Ranulfo Morgan Disposition: 08/15/16 15:09 Discharged to Home/Self Care. Impression: Chronic obstructive pulmonary disease, unspecified. - Condition is Stable. - Discharge Instructions: Chronic Obstructive Pulmonary Disease, How to Use an Inhaler. - Prescriptions for Prednisone 20 mg Oral Tablet - take 3 tablets by ORAL route once daily for 4 days; 12 tablet. Combivent Respimat 20- 100 mcg/actuation Inhalation Mist - inhale 1 puff by INHALATION route 4 times per day not to exceed 6 puffs in 24hrs; 1 Inhaler. Tussionex Pennkinetic ER 8- 10 mg/5 mL Oral Suspension, Sust. Release 12 hr - take 5 milliliter by ORAL route every 12 hours As needed; 120 milliliter. - Medication Reconciliation, Local Pharmacy Hours form. - [facility] up: [facility]; When: Call to arrange an appointment; Reason: Recheck today's complaints, Continuance of care. - Problem is an acute exacerbation. - Symptoms have improved. - Notes: Keep hydrated Use the puffer every 4-6 hours as needed Return to the ED for worsening shortness of breath, fever or any other concerns Historical: - Allergies: Augmentin; - Home Meds: 1. aspirin 81 mg Oral chew 1 tab once daily (Last dose: 08/15/2016) 2. lisinopril 40 mg Oral tab 1 tab once daily (Last dose: 08/15/2016) 3. metformin 1,000 mg Oral tab 1 tab 2 times per day (Last dose: 08/15/2016) 4. Protonix 20 mg Oral TbEC 1 tab 2 times per day (Last dose: 08/15/2016) 5. atorvastatin 80 mg oral tab 1 tab once daily (Last dose: 08/15/2016) 6. chlorthalidone 25 mg Oral tab 0.5 tab once daily (Last dose: 08/15/2016) 7. Flonase 50 mcg/actuation Nasal spsn 1 spray once daily 8. loratadine 10 mg Oral tab 1 tab once daily (Last dose: 08/15/2016) 9. montelukast 10 mg oral tab once daily (Last dose: 08/15/2016) 10. Mobic 7.5 mg oral tab twice a day (Last dose: 08/15/2016) 11. encrece inhaler daily (Last dose: 08/15/2016) 12. AYR saline nasal gel each nostril as needed as directed - PMHx: Asthma; Arthritis; COPD; Depression; Diabetes - NIDDM: controlled; Hypercholesterolemia; Hypertension; multiple joint pain; - PSHx: Bladder suspension; Carpal Tunnel Repair- Bilateral; ulnar surgery left elbow; - Social history: Smoking status: Patient uses tobacco products, current every day smoker. No barriers to communication noted, The patient speaks fluent Albanian, Speaks appropriately for age. - Family history: Not pertinent. - : The pt / caregiver states he / she is not on anticoagulants. Home medication list is obtained from the patient, [employer] import data. - Exposure Risk Screening:: None identified. Vital Signs: 08/15 11:26 BP 152 / 83; Pulse 92; Resp 18; Temp 98.9(O); Pulse Ox 97% on R/A; Weight 92.08 kg / dem1 203 lbs; Height 5 ft. 3 in. (160.02 cm); Pain 7/10; 12:09 BP 151 / 71 (auto/); kr3 12:10 Pulse 80 MON; Pulse Ox 93% ; kr3 12:43 BP 133 / 66 (auto/); kr3 12:44 Pulse 76 MON; Pulse Ox 96% ; kr3 13:09 BP 133 / 61 (auto/); kr3 13:10 Pulse 84 MON; Pulse Ox 95% ; kr3 13:39 BP 134 / 63 (auto/); kr3 13:40 Pulse 86 MON; Pulse Ox 92% ; kr3 13:48 Pain 2/10; kr3 14:09 BP 137 / 61 (auto/); kr3 14:10 Pulse 88 MON; Pulse Ox 94% ; kr3 14:39 BP 129 / 62 (auto/); jmb 14:40 Pulse 82 MON; Pulse Ox 91% ; jmb 15:22 BP 134 / 63; Pulse 85; Resp 18; Temp 97.7(TE); Pulse Ox 94% on R/A; Pain 3/10; dem1 11:26 Body Mass Index 35.96 (92.08 kg, 160.02 cm) dem1 MDM: 11:30 ECG WITH READING ER PHYS+CARDIAG ordered. EDMS 11:39 Aspirin Chewable Tablet 324 mg PO once ordered. fg 11:39 Truck Shop Mechanic/Pulse Ox/q 30 min VS ordered. fg 11:39 IV Saline Lock ordered. fg 11:39 Rhythm Strip to chart ordered. fg 11:39 Undress patient appropriately for examination ordered. fg 11:40 B-Type Natiuretic Peptide Ordered. EDMS 11:40 Basic Metabolic Profile Ordered. EDMS 11:40 CBC with Diff Ordered. EDMS 11:40 Cardiac Injury Profile Ordered. EDMS 11:40 Troponin Ordered. EDMS 11:41 portable chest Ordered. EDMS 12:29 D-Dimer Quant Ordered. EDMS 12:35 Albuterol 5 mg Nebulizer once ordered. le 12:35 Albuterol-Ipratropium 3 ml Inhalation once ordered. le 12:35 Call Respiratory ordered. le 12:35 Solu-MEDROL 125 mg IVP once ordered. le 12:35 Basic Metabolic Profile Reviewed. le 12:35 CBC with Diff Reviewed. le 12:35 Cardiac Injury Profile Reviewed. le 12:35 Troponin Reviewed. le 12:36 CONSISTENT CARBOHYDRATE+DIET ordered. EDMS 12:41 Call Respiratory complete. kr3 12:54 Acetaminophen Tablet 975 mg PO once ordered. le 12:54 B-Type Natiuretic Peptide Reviewed. le 12:54 D-Dimer Quant Reviewed. le 12:54 portable chest Reviewed. le 13:04 Financial registration complete. mm15 13:13 [facility] Payment Agreement was scanned into [employer] and attached to record. mm15 08/16 11:23 T-Sheet-- Draft Copy was scanned into [employer] and attached to record. gb 11:23 ECG/EKG was scanned into [employer] and attached to record. gb 11:23 Trend VS was scanned into [employer] and attached to record. gb Administered Medications: 08/15 11:53 Drug: Aspirin 324 mg [aspirin 81 mg chewable tablet (4 tabs)] Route: PO; kr3 12:45 Drug: Solu-MEDROL 125 mg [Solu-Medrol 500 mg intravenous solution (125 mg)] Route: IVP; kr3 Site: left antecubital; 14:14 Follow up: Response: No Adverse Reaction kr3 12:50 Drug: Albuterol 5 mg [albuterol sulfate 2.5 mg/0.5 mL solution for nebulization (1 mL)] js11 Route: Nebulizer; 12:50 Drug: Albuterol-Ipratropium 3 ml [ipratropium-albuterol 0.5 mg-3 mg(2.5 mg base)/3 mL js11 nebulization soln (3 mL)] Route: Inhalation; 13:10 Drug: Acetaminophen 975 mg [acetaminophen 325 mg tablet (3 tabs)] Route: PO; kr3 13:48 Follow up: Pain 08/08 Adult; Response: Pain is decreased kr3 Signatures: Dispatcher [employer] EDMS Katelyn Bobby, Mary Lockwood RN RN kr3 Tata Smith, Marielos Orozco mm15 Jony Samson RN RN jmb Gill, Frances, MD MD fg Sawyer, Jordan js11 The chart was reviewed and I authenticate all verbal orders and agree with the evaluation and treatment provided.Attachments: 13:13 [facility] Payment Agreement mm15 08/16 11:23 T-Sheet-- Draft Copy gb 11:23 ECG/EKG gb Chart Complete MTDD
--- NOTE | 2016-08-17 16:30 | EDDOCDS ---
Physician Documentation [facility] Name: Janet Jeong Age: 60 yrs Sex: Female : 1955 Arrival Date: 08/15/2016 Time: 11:24 Bed 6 Private MD: Ranulfo Morgan Disposition: 08/15/16 15:09 Discharged to Home/Self Care. Impression: Chronic obstructive pulmonary disease, unspecified. - Condition is Stable. - Discharge Instructions: Chronic Obstructive Pulmonary Disease, How to Use an Inhaler. - Prescriptions for Prednisone 20 mg Oral Tablet - take 3 tablets by ORAL route once daily for 4 days; 12 tablet. Combivent Respimat 20- 100 mcg/actuation Inhalation Mist - inhale 1 puff by INHALATION route 4 times per day not to exceed 6 puffs in 24hrs; 1 Inhaler. Tussionex Pennkinetic ER 8- 10 mg/5 mL Oral Suspension, Sust. Release 12 hr - take 5 milliliter by ORAL route every 12 hours As needed; 120 milliliter. - Medication Reconciliation, Local Pharmacy Hours form. - [facility]; When: Call to arrange an appointment; Reason: Recheck today's complaints, Continuance of care. - Problem is an acute exacerbation. - Symptoms have improved. - Notes: Keep hydrated Use the puffer every 4-6 hours as needed Return to the ED for worsening shortness of breath, fever or any other concerns Historical: - Allergies: Augmentin; - Home Meds: 1. aspirin 81 mg Oral chew 1 tab once daily (Last dose: 08/15/2016) 2. lisinopril 40 mg Oral tab 1 tab once daily (Last dose: 08/15/2016) 3. metformin 1,000 mg Oral tab 1 tab 2 times per day (Last dose: 08/15/2016) 4. Protonix 20 mg Oral TbEC 1 tab 2 times per day (Last dose: 08/15/2016) 5. atorvastatin 80 mg oral tab 1 tab once daily (Last dose: 08/15/2016) 6. chlorthalidone 25 mg Oral tab 0.5 tab once daily (Last dose: 08/15/2016) 7. Flonase 50 mcg/actuation Nasal spsn 1 spray once daily 8. loratadine 10 mg Oral tab 1 tab once daily (Last dose: 08/15/2016) 9. montelukast 10 mg oral tab once daily (Last dose: 08/15/2016) 10. Mobic 7.5 mg oral tab twice a day (Last dose: 08/15/2016) 11. encrece inhaler daily (Last dose: 08/15/2016) 12. AYR saline nasal gel each nostril as needed as directed - PMHx: Asthma; Arthritis; COPD; Depression; Diabetes - NIDDM: controlled; Hypercholesterolemia; Hypertension; multiple joint pain; - PSHx: Bladder suspension; Carpal Tunnel Repair- Bilateral; ulnar surgery left elbow; - Social history: Smoking status: Patient uses tobacco products, current every day smoker. No barriers to communication noted, The patient speaks fluent Uzbek, Speaks appropriately for age. - Family history: Not pertinent. - : The pt / caregiver states he / she is not on anticoagulants. Home medication list is obtained from the patient, [facility] ([place] import data. - Exposure Risk Screening:: None identified. Vital Signs: 08/15 11:26 BP 152 / 83; Pulse 92; Resp 18; Temp 98.9(O); Pulse Ox 97% on R/A; Weight 92.08 kg / dem1 203 lbs; Height 5 ft. 3 in. (160.02 cm); Pain 7/10; 12:09 BP 151 / 71 (auto/); kr3 12:10 Pulse 80 MON; Pulse Ox 93% ; kr3 12:43 BP 133 / 66 (auto/); kr3 12:44 Pulse 76 MON; Pulse Ox 96% ; kr3 13:09 BP 133 / 61 (auto/); kr3 13:10 Pulse 84 MON; Pulse Ox 95% ; kr3 13:39 BP 134 / 63 (auto/); kr3 13:40 Pulse 86 MON; Pulse Ox 92% ; kr3 13:48 Pain 2/10; kr3 14:09 BP 137 / 61 (auto/); kr3 14:10 Pulse 88 MON; Pulse Ox 94% ; kr3 14:39 BP 129 / 62 (auto/); jmb 14:40 Pulse 82 MON; Pulse Ox 91% ; jmb 15:22 BP 134 / 63; Pulse 85; Resp 18; Temp 97.7(TE); Pulse Ox 94% on R/A; Pain 3/10; dem1 11:26 Body Mass Index 35.96 (92.08 kg, 160.02 cm) dem1 MDM: 11:30 ECG WITH READING ER PHYS+CARDIAG ordered. EDMS 11:39 Aspirin Chewable Tablet 324 mg PO once ordered. fg 11:39 Administrative Support Associate/Pulse Ox/q 30 min VS ordered. fg 11:39 IV Saline Lock ordered. fg 11:39 Rhythm Strip to chart ordered. fg 11:39 Undress patient appropriately for examination ordered. fg 11:40 B-Type Natiuretic Peptide Ordered. EDMS 11:40 Basic Metabolic Profile Ordered. EDMS 11:40 CBC with Diff Ordered. EDMS 11:40 Cardiac Injury Profile Ordered. EDMS 11:40 Troponin Ordered. EDMS 11:41 portable chest Ordered. EDMS 12:29 D-Dimer Quant Ordered. EDMS 12:35 Albuterol 5 mg Nebulizer once ordered. le 12:35 Albuterol-Ipratropium 3 ml Inhalation once ordered. le 12:35 Call Respiratory ordered. le 12:35 Solu-MEDROL 125 mg IVP once ordered. le 12:35 Basic Metabolic Profile Reviewed. le 12:35 CBC with Diff Reviewed. le 12:35 Cardiac Injury Profile Reviewed. le 12:35 Troponin Reviewed. le 12:36 CONSISTENT CARBOHYDRATE+DIET ordered. EDMS 12:41 Call Respiratory complete. kr3 12:54 Acetaminophen Tablet 975 mg PO once ordered. le 12:54 B-Type Natiuretic Peptide Reviewed. le 12:54 D-Dimer Quant Reviewed. le 12:54 portable chest Reviewed. le 13:04 Financial registration complete. mm15 13:13 [facility] [place] [facility] Payment Agreement was scanned into [employer] and attached to record. mm15 08/16 11:23 T-Sheet-- Draft Copy was scanned into [employer] and attached to record. gb 11:23 ECG/EKG was scanned into [employer] and attached to record. gb 11:23 Trend VS was scanned into [employer] and attached to record. gb Administered Medications: 08/15 11:53 Drug: Aspirin 324 mg [aspirin 81 mg chewable tablet (4 tabs)] Route: PO; kr3 12:45 Drug: Solu-MEDROL 125 mg [Solu-Medrol 500 mg intravenous solution (125 mg)] Route: IVP; kr3 Site: left antecubital; 14:14 Follow up: Response: No Adverse Reaction kr3 12:50 Drug: Albuterol 5 mg [albuterol sulfate 2.5 mg/0.5 mL solution for nebulization (1 mL)] js11 Route: Nebulizer; 12:50 Drug: Albuterol-Ipratropium 3 ml [ipratropium-albuterol 0.5 mg-3 mg(2.5 mg base)/3 mL js11 nebulization soln (3 mL)] Route: Inhalation; 13:10 Drug: Acetaminophen 975 mg [acetaminophen 325 mg tablet (3 tabs)] Route: PO; kr3 13:48 Follow up: Pain 08/08 Adult; Response: Pain is decreased kr3 Signatures: Dispatcher [employer] EDMS Katelyn Bobby, Mary Lockwood RN RN kr3 Tata Smith, Marielos Orozco mm15 Jony Samson RN RN jmb Gill, Frances, MD MD fg Sawyer, Jordan js11 The chart was reviewed and I authenticate all verbal orders and agree with the evaluation and treatment provided.Attachments: 13:13 [facility] Payment Agreement mm15 08/16 11:23 T-Sheet-- Draft Copy gb 11:23 ECG/EKG gb Chart Complete MTDD
== END 2016-08-15 15:29 | disposition home or self-care (01) ==
LOC: M ED 11:24
DX: J44.9 Chronic obstructive pulmonary disease, unspecified (principal); J45.909 Unspecified asthma, uncomplicated; M19.90 Unspecified osteoarthritis, unspecified site; F32.9 Major depressive disorder, single episode, unspecified; E11.9 Type 2 diabetes mellitus without complications; E78.00 Pure hypercholesterolemia, unspecified; I10 Essential (primary) hypertension; Z72.0 Tobacco use; Z79.82 Long term (current) use of aspirin; Z79.899 Other long term (current) drug therapy; Z88.1 Allergy status to other antibiotic agents
CPT/HCPCS: 71010; 80048; 82550; 82553; 83880; 85025; 85379; 93005; 93041; 94640; 96374; 99284; J2930

== ENCOUNTER → 2016-09-17 | Outpatient (REF) | payer OTHER | LOC: M SFHCPLAZ 07:56 | PROVIDERS: ATTEND Family Medicine | DX: E11.9 Type 2 diabetes mellitus without complications (principal) ==

== ENCOUNTER → 2016-09-18 | Outpatient (CLI) | payer OTHER ==
--- NOTE | 2016-09-18 12:08 | REP ---
Clinical: Lung screening. History of smoking. Technique: Axial noncontrast low-dose images from the thoracic inlet to the upper abdomen using lung screening technique. Comparison: Chest CT dated 01/27/2014. Findings: A 3 mm density in the anterior segment right lower lobe (image 39) is unchanged compared to prior examination. No further consolidation, nodule or mass lesion is appreciated. No obvious pleural effusion/reaction. No pneumothorax. Again bronchial tree is grossly normal. Mediastinum is grossly normal. Impression: Single chronic benign nodule otherwise negative examination. Lung-RADS category I. Signed by Bandar Magaña MD 09/18/2016 12:00 P
== END ==
LOC: M RAD 10:11
PROVIDERS: ATTEND Internal Medicine Pulmonary Disease
DX: Z12.2 Encounter for screening for malignant neoplasm of respiratory organs (principal); F17.218 Nicotine dependence, cigarettes, with other nicotine-induced disorders; R91.1 Solitary pulmonary nodule

== ENCOUNTER → 2016-11-14 | Outpatient (REF) | payer OTHER | LOC: M SFHCPLAZ 16:08 | PROVIDERS: ATTEND Hospitalist | DX: E11.8 Type 2 diabetes mellitus with unspecified complications (principal) ==

== ENCOUNTER → 2016-12-12 | Outpatient (CLI) | payer OTHER ==
--- NOTE | 2016-12-12 14:16 | REPMRS ---
Patient History The patient states she has not had a clinical breast exam in over a year. Patient is postmenopausal and had first child at age 37. Family history of prostate cancer in father, breast cancer in sister under age 50, breast cancer in maternal aunt under age 50, and breast cancer in maternal grandmother. Digital Woman Screen Mammo: December 12, 2016 - Exam #: [id number] Bilateral CC and MLO view(s) were taken. Technologist: Pamela Lanza, Technologist Prior study comparison: October 12, 2015, digital woman screen mammo performed at [facility] [employer] to [facility]. September 18, 2014, digital woman screen mammo performed at [facility] [employer] to [facility]. FINDINGS: The breast tissue is heterogeneously dense. This may lower the sensitivity of mammography. There has been no change in the appearance of the mammogram from the prior studies. There is a moderate amount of residual fibroglandular tissue which is fairly symmetric. There is no interval development of dominant mass, areas of architectural distortion, or clustered microcalcification typical of malignancy. ASSESSMENT: BI-RADS/ACR category 1 mammogram. Negative. Recommendation Routine screening mammogram in 1 year (for women over age 40). This mammogram was interpreted with the aid of an FDA-approved computer-aided dectection system. Electronically Signed By: Denny Roque MD 12/12/16 0510
== END ==
LOC: M WHC 12:59
DX: Z12.31 Encounter for screening mammogram for malignant neoplasm of breast (principal); Z78.0 Asymptomatic menopausal state

== ENCOUNTER → 2017-01-13 | Outpatient (CLI) | payer OTHER ==
--- NOTE | 2017-01-18 07:33 | SLEEPHOME ---
DATE OF PROCEDURE: 01/13/2017 ORDERED BY: Dr. Lorenz Diagnostic home sleep testing was performed due to concern for the obstructive sleep apnea syndrome in this patient with a history of excessive daytime somonlence. For testing, a NOX-T3 respiratory monitoring device was used. Continuous record was made of pulse, oxygen saturation, airflow, chest and abdominal strain, and body position. 10 hours and 59 minutes of data were reviewed. There were 7 hours and 49 minutes of time marked as time in bed. During the interval marked time in bed, there were 74 respiratory events identified of 10 seconds in duration or greater for a respiratory event index of 9.5. The events were primarily obstructive. Occasional mixed and central apneas were seen. Baseline oxygen saturation was 91%. Lowest oxygen saturation was 77%. Baseline pulse rate was 62 beats per minute. Pulse rate ranged 28 to 91. Testing was performed in both the supine and nonsupine positions. IMPRESSION: Abnormal home sleep testing with repetitive respiratory events and oxygen desaturations to 77% with a respiratory event index of 9.5 is consistent with the obstructive sleep apnea syndrome. RECOMMENDATION: The patient should be encouraged to undergo formal sleep evaluation and in-laboratory pressure titration.
== END ==
LOC: M SLEEP 07:48
PROVIDERS: ATTEND Internal Medicine Pulmonary Disease
DX: G47.30 Sleep apnea, unspecified (principal); R06.83 Snoring

== ENCOUNTER → 2017-02-09 | Outpatient (CLI) | payer OTHER ==
--- NOTE | 2017-02-14 10:23 | SLEEPCENT ---
DATE OF STUDY: 02/09/2017 ORDERING PROVIDER: Azar Lorenz DO Nocturnal polysomnography was performed for the titration of pressure therapy in this patient with a clinical diagnosis of obstructive sleep apnea syndrome, supported by home testing, revealing a respiratory event index of 9.5. For testing, a ResMed Quattro full face mask of extra-small size was used. 4 cm of water pressure were applied to the circuit, and the lights were extinguished. 6 hours and 24 minutes of data were reviewed. There were 335 minutes of sleep identified. Sleep latency was normal at 7 minutes. Rapid eye movement (REM) latency was normal at 75 minutes. Sleep architecture was fairly good with three REM periods appreciated. Overall sleep efficiency was 88.6%. The patient's electrocardiogram (EKG) showed a sinus rhythm with an average heart rate of 64 beats per minute. Electroencephalogram (EEG) showed normal waveforms for awake and sleep. Respiratory events were fully palliated with continuous positive airway pressure (CPAP) at a pressure of +10. Remaining measures of sleep physiology were normal. IMPRESSION: Obstructive sleep apnea syndrome (G47.33). RECOMMENDATION: Nightly use of pressure therapy 10 cm of water.
== END ==
LOC: M SLEEP 19:28
PROVIDERS: ATTEND Internal Medicine Pulmonary Disease
DX: G47.33 Obstructive sleep apnea (adult) (pediatric) (principal)

== ENCOUNTER → 2017-06-23 | Outpatient (REF) | payer OTHER | LOC: M SFHCPLAZ 08:03 | DX: E11.8 Type 2 diabetes mellitus with unspecified complications (principal) ==

== ENCOUNTER 2017-07-09 16:17 | Outpatient (REF) | payer OTHER ==
[2017-07-22 14:40] LABS: VITAMIN B12 LEVEL 567 PG/ML
[2017-07-22 14:46] LABS: CHOLESTEROL LEVEL 175 MG/DL (<200); CHOLESTEROL RISK RATIO 3.645 (<5); HDL CHOLESTEROL 48 MG/DL (>40); NON-HDL-C 127 MG/DL; TRIGLYCERIDES LEVEL 145 MG/DL (<150)
[2017-07-22 15:19] LABS: HEPATITIS C VIRUS ABY INDEX < 0.0 INDEX (<0.8)
== END 2017-07-21 ==
LOC: M SFHCPLAZ 16:17
DX: E11.8 Type 2 diabetes mellitus with unspecified complications (principal); E78.5 Hyperlipidemia, unspecified; M79.2 Neuralgia and neuritis, unspecified
CPT/HCPCS: 82746

== ENCOUNTER → 2017-09-08 | Outpatient (CLI) | payer OTHER ==
[2017-09-08 13:47] LABS: CREATININE, URINE 82.1 MG/DL; MALB URINE SIEMENS 9.8 MG/L; MAU/CREAT RATIO 11.9 MCG/MG (0.0-30.0)
[2017-09-08 15:09] LABS: ESTIMATED AVERAGE GLUCOSE 146 MG/DL (60-110); HEMOGLOBIN A1c 6.7 %
== END ==
LOC: M SMT 09:37
DX: E11.8 Type 2 diabetes mellitus with unspecified complications (principal)
CPT/HCPCS: 83036

== ENCOUNTER → 2017-11-24 | Outpatient (CLI) | payer OTHER | LOC: M RAD 08:15 | DX: Z12.2 Encounter for screening for malignant neoplasm of respiratory organs (principal); F17.218 Nicotine dependence, cigarettes, with other nicotine-induced disorders; R91.8 Other nonspecific abnormal finding of lung field | CPT/HCPCS: G0297 ==

== ENCOUNTER → 2017-12-09 | Outpatient (CLI) | payer OTHER | LOC: M PLARAD 13:10 | DX: R91.1 Solitary pulmonary nodule (principal); Z87.891 Personal history of nicotine dependence | CPT/HCPCS: 78815 ==

== ENCOUNTER → 2017-12-15 | Outpatient (CLI) | payer OTHER | LOC: M RAD 08:39 | DX: R91.8 Other nonspecific abnormal finding of lung field (principal) | CPT/HCPCS: 71250 ==

== ENCOUNTER 2017-12-29 09:48 | Day surgery (SDC) | payer OTHER ==
[2017-12-29] MEDS: LR 1,000 ML IV (10:30)
[2017-12-29 10:36] LABS: BEDSIDE GLUCOSE 120 MG/DL (80-115)
[2017-12-29] MEDS ORDERED: CETACAINE SPRAY 5GM As Ordered (11:28)
[2017-12-29] MEDS ORDERED: LIDOCAINE 1% MDV 20ML VIAL As Ordered (11:28)
[2017-12-29] MEDS ORDERED: EPINEPHrine 1MG/10ML SYRINGE 1.5IN As Ordered (11:28)
[2017-12-29] MEDS ORDERED: ROCURONIUM BROMIDE 50 MG/5 ML VIAL As Ordered (12:18)
[2017-12-29] MEDS ORDERED: PHENYLephrine HCL 500 MCG/5 ML (100MCG/ML) SYRINGE (J2370) As Ordered (12:18)
[2017-12-29] MEDS ORDERED: LIDOCAINE 2% INJ 100 MG/5 ML SDV (FOR ANES.) As Ordered (12:18)
[2017-12-29] MEDS ORDERED: MIDAZOLAM INJ 2 MG/2 ML VIAL (J2250) As Ordered (12:18)
[2017-12-29] MEDS ORDERED: dexameTHASONE 4 MG/ML 1ML VIAL (J1100) As Ordered (12:18)
[2017-12-29] MEDS ORDERED: fentaNYL 100 MCG/2 ML INJECTION (J3010) As Ordered (12:18)
[2017-12-29] MEDS ORDERED: ONDANSETRON 4MG/2ML VIAL (J2405) As Ordered (12:18)
[2017-12-29] MEDS ORDERED: GLYCOPYRROLATE INJ 0.2 MG/ML 2 ML VIAL As Ordered ×2 (12:19)
[2017-12-29] MEDS ORDERED: NEOSTIGMINE 10 MG/10 ML VIAL (J2710) As Ordered (12:19)
[2017-12-29] MEDS ORDERED: HYDROMORPHONE HCL 0.5 MG/ 0.5 ML SYRINGE (J1170 PER 1) IV (13:30)
[2017-12-29] MEDS ORDERED: LR 1,000 ML IV (13:30)
[2017-12-29] MEDS ORDERED: PERCOCET 5MG/325MG TAB PO (13:30)
[2017-12-29] MEDS ORDERED: ONDANSETRON 4MG/2ML VIAL (J2405) IV (13:30)
[2017-12-29] MEDS ORDERED: fentaNYL 100 MCG/2 ML INJECTION (J3010) IV (13:30)
== END 2017-12-29 14:00 | disposition home or self-care (01) ==
LOC: M SDC 14:00
DX: C34.91 Malignant neoplasm of unspecified part of right bronchus or lung (principal); F17.218 Nicotine dependence, cigarettes, with other nicotine-induced disorders; G47.33 Obstructive sleep apnea (adult) (pediatric); J45.20 Mild intermittent asthma, uncomplicated; I10 Essential (primary) hypertension; E78.00 Pure hypercholesterolemia, unspecified; E11.9 Type 2 diabetes mellitus without complications; J44.9 Chronic obstructive pulmonary disease, unspecified; M19.90 Unspecified osteoarthritis, unspecified site; M51.9 Unspecified thoracic, thoracolumbar and lumbosacral intervertebral disc disorder; M54.5 Low back pain; K21.9 Gastro-esophageal reflux disease without esophagitis; Z79.899 Other long term (current) drug therapy; Z79.51 Long term (current) use of inhaled steroids; Z79.82 Long term (current) use of aspirin; Z79.84 Long term (current) use of oral hypoglycemic drugs; Z88.1 Allergy status to other antibiotic agents; Z80.1 Family history of malignant neoplasm of trachea, bronchus and lung; Z88.0 Allergy status to penicillin
CPT/HCPCS: 31623

== ENCOUNTER → 2017-12-29 | Outpatient (CLI) | payer OTHER ==
[2017-12-29 17:22] LABS: BASO % 0.4 % (0.0-1.0); EOS # 0.1 10^3/uL (0.0-0.50); EOS % 1.1 % (0.0-3.0); HEMATOCRIT 43.9 % (36.0-47.0); HEMOGLOBIN 14.3 g/dl (12.0-15.5); IMMATURE GRANULOCYTE % 0.8 % (0-3.0); LYMPH # 0.9 10^3/uL (1.5-4.5); MEAN CORPUSCULAR HEMOGLOBIN 29.8 pg (27.0-33.0); MEAN CORPUSCULAR HGB CONC 32.6 g/dl (32.0-36.5); MEAN CORPUSCULAR VOLUME 91.5 fl (80.0-96.0); MONO # 0.2 10^3/uL (0.0-0.8); MONO % 1.9 % (0.0-5.0); NEUTROPHILS # 7.2 10^3/uL (1.8-7.7); NEUTROPHILS % 84.8 % (36.0-66.0); PLATELET COUNT, AUTOMATED 155 10^3/uL (150-450); RED CELL DISTRIBUTION WIDTH 14.9 % (11.5-14.5); WHITE BLOOD COUNT 8.5 10^3/uL (4.0-10.0)
[2017-12-29 17:34] LABS: INR 0.99; PROTHROMBIN TIME 13.2 SECONDS (12.1-14.4)
[2017-12-29 17:35] LABS: CREATININE FOR GFR 1.13 MG/DL (0.55-1.30); GLOMERULAR FILTRATION RATE 52.1 (>45); PARTIAL THROMBOPLASTIN TIME 36.3 SECONDS (25.4-37.6)
[2017-12-29 17:35] LABS: BLOOD UREA NITROGEN 19 MG/DL (7-18)
== END ==
LOC: M LAB 16:08
DX: C34.11 Malignant neoplasm of upper lobe, right bronchus or lung (principal)
CPT/HCPCS: 82565

== ENCOUNTER → 2017-12-31 | Outpatient (CLI) | payer OTHER ==
[2017-12-31 15:58] LABS: ABG BASE EXCESS -1.9 (-2.0-2.0); ABG HCO3 21.1 MEQ/L (22.0-26.0); ABG O2 SATURATION 94.3 % (95.0-99.0); ABG PARTIAL PRESSURE CO2 31.2 mmHg (35.0-45.0); ABG PARTIAL PRESSURE O2 65.4 mmHg (75.0-100.0); ABG STANDARD HCO3 22.9 MEQ/L (22.0-26.0); ABG TOTAL CO2 22.1 MEQ/L (23.0-31.0); ABG pH (ARTERIAL) 7.448 UNITS (7.350-7.450)
[2017-12-31 16:28] LABS: ANION GAP 9 MEQ/L (8-16); BLOOD UREA NITROGEN 26 MG/DL (7-18); CALCIUM LEVEL 9.1 MG/DL (8.8-10.2); CARBON DIOXIDE LEVEL 26 MEQ/L (21-32); CHLORIDE LEVEL 105 MEQ/L (98-107); CREATININE FOR GFR 1.12 MG/DL (0.55-1.30); GLOMERULAR FILTRATION RATE 52.7 (>45); GLUCOSE, FASTING 112 MG/DL (70-100); POTASSIUM SERUM 4.5 MEQ/L (3.5-5.1); SODIUM LEVEL 140 MEQ/L (136-145)
== END ==
LOC: M LAB 15:22
DX: Z01.818 Encounter for other preprocedural examination (principal); C34.2 Malignant neoplasm of middle lobe, bronchus or lung
CPT/HCPCS: 71046

== ENCOUNTER 2018-01-04 09:30 | Inpatient (IN) | payer OTHER ==
[~2018-01-04 09:30] MED LIST: LIDOCAINE 1% MDV 20ML VIAL SQ; VANCOMYCIN 1000 MG/20 ML VIAL (J3370) As Ordered
[2018-01-04] MEDS: LR 1,000 ML IV ×2 (09:42→16:15)
[2018-01-04 09:47] LABS: BEDSIDE GLUCOSE 124 MG/DL (80-115)
[2018-01-04] MEDS ORDERED: MIDAZOLAM INJ 2 MG/2 ML VIAL (J2250) As Ordered ×2 (10:49→12:33)
[2018-01-04] MEDS ORDERED: fentaNYL 100 MCG/2 ML INJECTION (J3010) As Ordered ×2 (10:49→13:33)
[2018-01-04] MEDS: fentaNYL 100 MCG/2 ML INJECTION (J3010) IV ×5 (11:05→16:29)
[2018-01-04] MEDS: MIDAZOLAM INJ 2 MG/2 ML VIAL (J2250) IV (11:05)
[2018-01-04] MEDS: VANCOMYCIN HCL 1,000 MG, VIAL MATE ADAPTER 1 EACH in D5W 250 ML IV ×2 (11:30→21:37)
[2018-01-04] MEDS: MUPIROCIN 2% OINT 22 GM TUBE TOP (11:39)
[2018-01-04] MEDS: CETACAINE SPRAY 5GM As Ordered (11:55)
[2018-01-04] MEDS ORDERED: ROCURONIUM BROMIDE 50 MG/5 ML VIAL As Ordered ×3 (12:28→14:18)
[2018-01-04] MEDS ORDERED: PHENYLephrine HCL 500 MCG/5 ML (100MCG/ML) SYRINGE (J2370) As Ordered ×2 (12:33→15:22)
[2018-01-04] MEDS ORDERED: fentaNYL 250 MCG/5 ML INJECTION (J3010) As Ordered (12:33)
[2018-01-04] MEDS ORDERED: NEOSTIGMINE 10 MG/10 ML VIAL (J2710) As Ordered (12:33)
[2018-01-04] MEDS ORDERED: BUPIVACAINE HCL 0.25% 30 ML VIAL As Ordered (12:33)
[2018-01-04] MEDS ORDERED: LIDOCAINE 2% INJ 100 MG/5 ML SDV (FOR ANES.) As Ordered (12:33)
[2018-01-04] MEDS ORDERED: PROPOFOL 200 MG/20 ML VIAL As Ordered (12:33)
[2018-01-04] MEDS ORDERED: ONDANSETRON 4MG/2ML VIAL (J2405) As Ordered (12:33)
[2018-01-04] MEDS ORDERED: GLYCOPYRROLATE INJ 0.2 MG/ML 2 ML VIAL As Ordered (12:33)
[2018-01-04] MEDS ORDERED: dexameTHASONE 4 MG/ML 1ML VIAL (J1100) As Ordered (12:33)
[2018-01-04] MEDS ORDERED: METOCLOPRAMIDE INJ 10MG/2ML VIAL (J2765) As Ordered (12:33)
[2018-01-04] MEDS ORDERED: DESFLURANE 240 ML INHALANT As Ordered (12:59)
[2018-01-04] MEDS ORDERED: EPIDURAL/PCA KEYS XX (13:00)
[2018-01-04] MEDS ORDERED: METOCLOPRAMIDE INJ 10MG/2ML VIAL (J2765) IV (13:00)
[2018-01-04] MEDS ORDERED: NALOXONE INJ 0.4 MG/1 ML VIAL (J2310) IV (13:00)
[2018-01-04] MEDS ORDERED: diphenhydrAMINE INJ 50MG/ML VIAL (J1200) IV (13:00)
[2018-01-04] MEDS ORDERED: WALLBOXKEY XX (13:00)
[2018-01-04] MEDS ORDERED: ONDANSETRON 4MG/2ML VIAL (J2405) IV ×3 (13:00→16:15)
[2018-01-04] MEDS ORDERED: LABETALOL HCL 100 MG/20 ML VIAL As Ordered (14:02)
[2018-01-04] MEDS: BUPIVACAINE HCL 0.5% 10 ML VIAL As Ordered (15:22)
[2018-01-04] MEDS: BUPIVACAINE LIPOSOME/PF 1.3% 20 ML VIAL (13.3MG/ML)(EXPAREL) As Ordered (15:22)
[2018-01-04] MEDS ORDERED: LIDOCAINE 1% MDV 20ML VIAL (15:28)
[2018-01-04] MEDS ORDERED: BISACODYL 10 MG SUPP PR (15:45)
[2018-01-04] MEDS ORDERED: CYCLOBENZAPRINE 5MG TABLET PO (15:45)
[2018-01-04] MEDS ORDERED: PERCOCET 5MG/325MG TAB PO ×2 (15:45)
[2018-01-04] MEDS ORDERED: LEVALBUTEROL 1.25 MG/0.5 ML CONCENTRATE NEB NEB (15:45)
[2018-01-04] MEDS ORDERED: ACETAMINOPHEN TAB 650MG DOSE (2X325MG) PO (15:45)
[2018-01-04] MEDS: FENTANYL/BUPIVACAINE/NACL BAG 250 ML EPIDURAL (15:55)
[2018-01-04 16:07] LABS: ABG BASE EXCESS -2.6 (-2.0-2.0); ABG HCO3 23.2 MEQ/L (22.0-26.0); ABG O2 SATURATION 95.3 % (95.0-99.0); ABG PARTIAL PRESSURE CO2 43.8 mmHg (35.0-45.0); ABG PARTIAL PRESSURE O2 81.4 mmHg (75.0-100.0); ABG STANDARD HCO3 22.3 MEQ/L (22.0-26.0); ABG TOTAL CO2 24.6 MEQ/L (23.0-31.0); ABG pH (ARTERIAL) 7.342 UNITS (7.350-7.450); BASO # 0.1 10^3/uL (0.0-0.2); BASO % 0.4 % (0.0-1.0); EOS # 0.1 10^3/uL (0.0-0.50); EOS % 0.4 % (0.0-3.0); HEMATOCRIT 42.9 % (36.0-47.0); HEMOGLOBIN 14.1 g/dl (12.0-15.5); IMMATURE GRANULOCYTE % 0.7 % (0-3.0); LYMPH % 6.4 % (24.0-44.0); MEAN CORPUSCULAR HEMOGLOBIN 29.8 pg (27.0-33.0); MEAN CORPUSCULAR HGB CONC 32.9 g/dl (32.0-36.5); MEAN CORPUSCULAR VOLUME 90.7 fl (80.0-96.0); MONO # 0.5 10^3/uL (0.0-0.8); MONO % 3.1 % (0.0-5.0); NEUTROPHILS # 13.6 10^3/uL (1.8-7.7); PLATELET COUNT, AUTOMATED 162 10^3/uL (150-450); RED BLOOD COUNT 4.73 10^6/uL (4.00-5.40); RED CELL DISTRIBUTION WIDTH 14.6 % (11.5-14.5); WHITE BLOOD COUNT 15.3 10^3/uL (4.0-10.0)
[2018-01-04 16:31] LABS: ANION GAP 9 MEQ/L (8-16); BLOOD UREA NITROGEN 27 MG/DL (7-18); CALCIUM LEVEL 8.5 MG/DL (8.8-10.2); CARBON DIOXIDE LEVEL 24 MEQ/L (21-32); CHLORIDE LEVEL 107 MEQ/L (98-107); GLUCOSE, FASTING 164 MG/DL (70-100); POTASSIUM SERUM 4.1 MEQ/L (3.5-5.1); SODIUM LEVEL 140 MEQ/L (136-145)
[2018-01-04] MEDS: KETOROLAC 30 MG/ML VIAL (J1885) IV (18:32)
[2018-01-04] MEDS: KCL 20MEQ IN D5/NS 1000ML 1,000 ML IV (18:33)
[2018-01-04] MEDS: GABAPENTIN 400 MG CAP PO ×2 (18:33→21:36)
[2018-01-04] MEDS: LEVALBUTEROL 1.25 MG/0.5 ML CONCENTRATE NEB NEB (20:02)
[2018-01-04] MEDS: DOCUSATE SODIUM 100 MG CAP PO (21:36)
[2018-01-04] MEDS: HEPARIN SOD (PORCINE) 5000 UNITS/ML VIAL SC (21:36)
[2018-01-04] MEDS: PANTOPRAZOLE 20 MG TAB PO (21:36)
[2018-01-05] MEDS: NS 500 ML IV (00:30)
[2018-01-05] MEDS: KETOROLAC 30 MG/ML VIAL (J1885) IV ×2 (00:53→06:27)
[2018-01-05] MEDS: LEVALBUTEROL 1.25 MG/0.5 ML CONCENTRATE NEB NEB ×4 (01:07→20:31)
[2018-01-05 05:20] LABS: BASO % 0.2 % (0.0-1.0); EOS % 0.1 % (0.0-3.0); HEMATOCRIT 37.2 % (36.0-47.0); HEMOGLOBIN 12.4 g/dl (12.0-15.5); IMMATURE GRANULOCYTE % 0.5 % (0-3.0); LYMPH # 0.7 10^3/uL (1.5-4.5); LYMPH % 4.9 % (24.0-44.0); MEAN CORPUSCULAR HEMOGLOBIN 29.9 pg (27.0-33.0); MEAN CORPUSCULAR HGB CONC 33.3 g/dl (32.0-36.5); MEAN CORPUSCULAR VOLUME 89.6 fl (80.0-96.0); MONO % 6.6 % (0.0-5.0); NEUTROPHILS # 12.8 10^3/uL (1.8-7.7); NEUTROPHILS % 87.7 % (36.0-66.0); PLATELET COUNT, AUTOMATED 167 10^3/uL (150-450); RED BLOOD COUNT 4.15 10^6/uL (4.00-5.40); RED CELL DISTRIBUTION WIDTH 14.8 % (11.5-14.5); WHITE BLOOD COUNT 14.6 10^3/uL (4.0-10.0)
[2018-01-05 05:37] LABS: ANION GAP 8 MEQ/L (8-16); BLOOD UREA NITROGEN 30 MG/DL (7-18); CALCIUM LEVEL 7.5 MG/DL (8.8-10.2); CARBON DIOXIDE LEVEL 22 MEQ/L (21-32); CHLORIDE LEVEL 105 MEQ/L (98-107); CREATININE FOR GFR 1.25 MG/DL (0.55-1.30); GLOMERULAR FILTRATION RATE 46.4 (>45); GLUCOSE, FASTING 155 MG/DL (70-100); POTASSIUM SERUM 4.8 MEQ/L (3.5-5.1); SODIUM LEVEL 135 MEQ/L (136-145)
[2018-01-05 06:07] LABS: ABG BASE EXCESS -3.6 (-2.0-2.0); ABG HCO3 20.9 MEQ/L (22.0-26.0); ABG O2 SATURATION 96.3 % (95.0-99.0); ABG PARTIAL PRESSURE CO2 36.1 mmHg (35.0-45.0); ABG PARTIAL PRESSURE O2 84.7 mmHg (75.0-100.0); ABG STANDARD HCO3 21.4 MEQ/L (22.0-26.0)
[2018-01-05] MEDS ORDERED: SLF 3 ML SYR IV (06:45)
[2018-01-05] MEDS ORDERED: PANTOPRAZOLE 40MG TAB (PROTONIX) PO (09:00)
[2018-01-05] MEDS: MOM 30ML SUSPENSION UDC PO (09:56)
[2018-01-05] MEDS: VANCOMYCIN HCL 1,000 MG, VIAL MATE ADAPTER 1 EACH in D5W 250 ML IV ×2 (09:56→20:36)
[2018-01-05] MEDS: HEPARIN SOD (PORCINE) 5000 UNITS/ML VIAL SC ×2 (09:56→20:35)
[2018-01-05] MEDS: MONTELUKAST 10 MG TAB PO (09:56)
[2018-01-05] MEDS: ATORVASTATIN 20 MG TAB PO (09:56)
[2018-01-05] MEDS: LISINOPRIL 20 MG TAB PO (09:57)
[2018-01-05] MEDS: metFORMIN (GLUCOPHAGE) 1000 MG TABLET PO ×2 (09:57→20:34)
[2018-01-05] MEDS: LORATADINE 10 MG TAB PO (09:57)
[2018-01-05] MEDS: GABAPENTIN 400 MG CAP PO ×3 (09:57→20:34)
[2018-01-05] MEDS: ASPIRIN 81 MG ENTERIC TAB PO (09:57)
[2018-01-05] MEDS: PANTOPRAZOLE 20 MG TAB PO ×2 (09:57→20:34)
[2018-01-05] MEDS: DOCUSATE SODIUM 100 MG CAP PO ×2 (09:57→20:34)
[2018-01-05] MEDS: CHLORTHALIDONE 12.5MG PER 1/2 TABLET PO (13:54)
[2018-01-05] MEDS: FENTANYL/BUPIVACAINE/NACL BAG 250 ML EPIDURAL (16:57)
[2018-01-05] MEDS: SLF 3 ML SYR IV ×2 (17:37→20:35)
[2018-01-06] MEDS: LEVALBUTEROL 1.25 MG/0.5 ML CONCENTRATE NEB NEB ×4 (01:42→20:41)
[2018-01-06] MEDS: FENTANYL/BUPIVACAINE/NACL BAG 250 ML EPIDURAL ×2 (02:10→17:36)
[2018-01-06] MEDS: SLF 3 ML SYR IV ×3 (04:35→21:19)
[2018-01-06 06:18] LABS: BASO % 0.4 % (0.0-1.0); EOS # 0.1 10^3/uL (0.0-0.50); EOS % 1.2 % (0.0-3.0); HEMATOCRIT 37.1 % (36.0-47.0); IMMATURE GRANULOCYTE % 0.5 % (0-3.0); LYMPH # 1.4 10^3/uL (1.5-4.5); LYMPH % 13.5 % (24.0-44.0); MEAN CORPUSCULAR HEMOGLOBIN 29.3 pg (27.0-33.0); MEAN CORPUSCULAR HGB CONC 32.3 g/dl (32.0-36.5); MEAN CORPUSCULAR VOLUME 90.7 fl (80.0-96.0); MONO # 1.1 10^3/uL (0.0-0.8); MONO % 10.8 % (0.0-5.0); NEUTROPHILS # 7.4 10^3/uL (1.8-7.7); NEUTROPHILS % 73.6 % (36.0-66.0); PLATELET COUNT, AUTOMATED 131 10^3/uL (150-450); RED BLOOD COUNT 4.09 10^6/uL (4.00-5.40); RED CELL DISTRIBUTION WIDTH 15.1 % (11.5-14.5)
[2018-01-06 06:26] LABS: ANION GAP 4 MEQ/L (8-16); BLOOD UREA NITROGEN 29 MG/DL (7-18); CALCIUM LEVEL 7.9 MG/DL (8.8-10.2); CARBON DIOXIDE LEVEL 26 MEQ/L (21-32); CHLORIDE LEVEL 105 MEQ/L (98-107); CREATININE FOR GFR 1.26 MG/DL (0.55-1.30); GLUCOSE, FASTING 190 MG/DL (70-100); POTASSIUM SERUM 4.9 MEQ/L (3.5-5.1); SODIUM LEVEL 135 MEQ/L (136-145)
[2018-01-06] MEDS: MONTELUKAST 10 MG TAB PO (08:35)
[2018-01-06] MEDS: PANTOPRAZOLE 20 MG TAB PO ×2 (08:35→21:14)
[2018-01-06] MEDS: ATORVASTATIN 20 MG TAB PO (08:35)
[2018-01-06] MEDS: MOM 30ML SUSPENSION UDC PO (08:35)
[2018-01-06] MEDS: LORATADINE 10 MG TAB PO (08:35)
[2018-01-06] MEDS: LISINOPRIL 20 MG TAB PO (08:36)
[2018-01-06] MEDS: DOCUSATE SODIUM 100 MG CAP PO ×2 (08:36→21:14)
[2018-01-06] MEDS: CHLORTHALIDONE 12.5MG PER 1/2 TABLET PO (08:36)
[2018-01-06] MEDS: HEPARIN SOD (PORCINE) 5000 UNITS/ML VIAL SC ×2 (08:36→21:19)
[2018-01-06] MEDS: ASPIRIN 81 MG ENTERIC TAB PO (08:36)
[2018-01-06] MEDS: VANCOMYCIN HCL 1,000 MG, VIAL MATE ADAPTER 1 EACH in D5W 250 ML IV (08:37)
[2018-01-06] MEDS: GABAPENTIN 400 MG CAP PO ×3 (08:37→21:14)
[2018-01-06] MEDS: metFORMIN (GLUCOPHAGE) 1000 MG TABLET PO ×2 (08:37→21:14)
[2018-01-06] MEDS: FUROSEMIDE 40 MG/4 ML VIAL (J1940) IV (11:03)
[2018-01-06] MEDS: KETOROLAC 30 MG/ML VIAL (J1885) IV ×3 (11:05→23:37)
[2018-01-06] MEDS: NORCO, ANEXSIA 5/325MG TABLET (HYDROcodone/ACETAMINOPHEN) PO (17:34)
[2018-01-07] MEDS: LEVALBUTEROL 1.25 MG/0.5 ML CONCENTRATE NEB NEB ×2 (01:05→08:06)
[2018-01-07] MEDS: SLF 3 ML SYR IV (04:38)
[2018-01-07] MEDS: KETOROLAC 30 MG/ML VIAL (J1885) IV (04:38)
[2018-01-07 06:16] LABS: BASO % 0.4 % (0.0-1.0); EOS # 0.3 10^3/uL (0.0-0.50); EOS % 3.6 % (0.0-3.0); HEMATOCRIT 38.6 % (36.0-47.0); HEMOGLOBIN 12.8 g/dl (12.0-15.5); IMMATURE GRANULOCYTE % 0.6 % (0-3.0); LYMPH # 1.2 10^3/uL (1.5-4.5); LYMPH % 13.1 % (24.0-44.0); MEAN CORPUSCULAR HGB CONC 33.2 g/dl (32.0-36.5); MEAN CORPUSCULAR VOLUME 90.6 fl (80.0-96.0); MONO % 10.5 % (0.0-5.0); NEUTROPHILS # 6.8 10^3/uL (1.8-7.7); NEUTROPHILS % 71.8 % (36.0-66.0); PLATELET COUNT, AUTOMATED 158 10^3/uL (150-450); RED BLOOD COUNT 4.26 10^6/uL (4.00-5.40); RED CELL DISTRIBUTION WIDTH 15.3 % (11.5-14.5); WHITE BLOOD COUNT 9.5 10^3/uL (4.0-10.0)
[2018-01-07 06:36] LABS: ANION GAP 7 MEQ/L (8-16); BLOOD UREA NITROGEN 30 MG/DL (7-18); CALCIUM LEVEL 8.6 MG/DL (8.8-10.2); CARBON DIOXIDE LEVEL 26 MEQ/L (21-32); CHLORIDE LEVEL 104 MEQ/L (98-107); CREATININE FOR GFR 1.29 MG/DL (0.55-1.30); GLOMERULAR FILTRATION RATE 44.7 (>45); GLUCOSE, FASTING 169 MG/DL (70-100); POTASSIUM SERUM 4.8 MEQ/L (3.5-5.1); SODIUM LEVEL 137 MEQ/L (136-145)
[2018-01-07] MEDS: LISINOPRIL 20 MG TAB PO (08:49)
[2018-01-07] MEDS: LORATADINE 10 MG TAB PO (08:49)
[2018-01-07] MEDS: MOM 30ML SUSPENSION UDC PO (08:49)
[2018-01-07] MEDS: GABAPENTIN 400 MG CAP PO (08:49)
[2018-01-07] MEDS: ASPIRIN 81 MG ENTERIC TAB PO (08:50)
[2018-01-07] MEDS: MONTELUKAST 10 MG TAB PO (08:50)
[2018-01-07] MEDS: ATORVASTATIN 20 MG TAB PO (08:50)
[2018-01-07] MEDS: CHLORTHALIDONE 12.5MG PER 1/2 TABLET PO (08:50)
[2018-01-07] MEDS: PANTOPRAZOLE 20 MG TAB PO (08:50)
[2018-01-07] MEDS: metFORMIN (GLUCOPHAGE) 1000 MG TABLET PO (08:50)
[2018-01-07] MEDS: DOCUSATE SODIUM 100 MG CAP PO (08:50)
[2018-01-07] MEDS: HEPARIN SOD (PORCINE) 5000 UNITS/ML VIAL SC (08:51)
== END 2018-01-07 11:13 | disposition home or self-care (01) | DRG 121 ==
LOC: M OR 09:30 → M PCU 17:17
PROVIDERS: Thoracic Surgery (Cardiothoracic Vascular Surgery)
PROC: 0BBD0ZZ Excision of Right Middle Lung Lobe, Open Approach (ICD-10-PCS; principal; 2018-01-04 11:05)
PROC: 07B70ZX Excision of Thorax Lymphatic, Open Approach, Diagnostic (ICD-10-PCS; 2018-01-04 11:05)
DX: C34.2 Malignant neoplasm of middle lobe, bronchus or lung (principal); E08.21 Diabetes mellitus due to underlying condition with diabetic nephropathy; E11.9 Type 2 diabetes mellitus without complications; J45.909 Unspecified asthma, uncomplicated; I10 Essential (primary) hypertension; E78.2 Mixed hyperlipidemia; G47.30 Sleep apnea, unspecified; F17.210 Nicotine dependence, cigarettes, uncomplicated

== ENCOUNTER → 2018-01-13 | Outpatient (CLI) | payer OTHER | LOC: M SMT 08:28 | DX: C34.2 Malignant neoplasm of middle lobe, bronchus or lung (principal); Z90.2 Acquired absence of lung [part of]; J98.2 Interstitial emphysema | CPT/HCPCS: 71046 ==

== ENCOUNTER → 2018-01-21 | Outpatient (REF) | payer OTHER ==
[2018-01-21 16:05] LABS: ESTIMATED AVERAGE GLUCOSE 163 MG/DL (60-110); HEMOGLOBIN A1c 7.3 %
[2018-01-21 18:03] LABS: CREATININE, URINE 66.9 MG/DL; MALB URINE SIEMENS < 5.0 MG/L; MAU/CREAT RATIO 7.4 MCG/MG (0.0-30.0)
== END ==
LOC: M SFHCPLAZ 14:20
DX: E11.8 Type 2 diabetes mellitus with unspecified complications (principal)
CPT/HCPCS: 83036

== ENCOUNTER → 2018-01-27 | Outpatient (REF) | payer OTHER ==
[2018-01-27 17:38] LABS: INR 0.94; PROTHROMBIN TIME 12.6 SECONDS (12.1-14.4)
[2018-01-27 17:39] LABS: PARTIAL THROMBOPLASTIN TIME 32.7 SECONDS (25.4-37.6)
== END ==
LOC: M LAB REF 16:29
DX: C34.90 Malignant neoplasm of unspecified part of unspecified bronchus or lung (principal)

== ENCOUNTER → 2018-02-04 | Outpatient (CLI) | payer OTHER ==
[~2018-02-04] MED LIST changes: +CLINDAMYCIN 600 MG/50 ML PREMIX BAG As Ordered; -LIDOCAINE 1% MDV 20ML VIAL SQ; +LIDOCAINE 2% MDV 20 ML VIAL As Ordered; +MIDAZOLAM INJ 2 MG/2 ML VIAL (J2250) As Ordered; -VANCOMYCIN 1000 MG/20 ML VIAL (J3370) As Ordered; +fentaNYL 100 MCG/2 ML INJECTION (J3010) As Ordered
== END | disposition home or self-care (01) ==
LOC: M IRPRO 07:37
DX: C34.90 Malignant neoplasm of unspecified part of unspecified bronchus or lung (principal)
CPT/HCPCS: 36561

== ENCOUNTER → 2018-02-05 | Outpatient (CLI) | payer OTHER | LOC: M SMT 08:05 | DX: C34.2 Malignant neoplasm of middle lobe, bronchus or lung (principal); Z90.2 Acquired absence of lung [part of]; Z95.828 Presence of other vascular implants and grafts | CPT/HCPCS: 71046 ==

== ENCOUNTER → 2018-04-20 | Outpatient (CLI) | payer OTHER | LOC: M ONCR 13:41 | DX: C34.90 Malignant neoplasm of unspecified part of unspecified bronchus or lung (principal) ==

== ENCOUNTER → 2018-06-14 | Outpatient (CLI) | payer OTHER ==
[~2018-06-14] MED LIST changes: +ASPI1TAB PO; +ATOR80TA59 PO; +BREO1INH3 INH; +BREO1INH3 PO; +CHLO125TA PO; -CLINDAMYCIN 600 MG/50 ML PREMIX BAG As Ordered; +CYCL5TAB PO; +GABA-845 PO; +GASTROGRAFIN SOLUTION 30ML (Q9963) As Ordered ONE; +ISOVUE-370 76% 100ML VIAL (Q9967) As Ordered ONE; +JARD1TAB3 PO; -LIDOCAINE 2% MDV 20 ML VIAL As Ordered; +LISI-538 PO; +LORA-243 PO; +MELO7.5T7 PO; +METF10004 PO; -MIDAZOLAM INJ 2 MG/2 ML VIAL (J2250) As Ordered; +MONT10TA2 PO; +PANT20TA2 PO; +PERCOCET PO; +SENO8.6T5 PO; +VENTAER INH; -fentaNYL 100 MCG/2 ML INJECTION (J3010) As Ordered
--- NOTE | 2018-06-15 06:39 | REP ---
Clinical: Status post chemotherapy for right lung mass. Technique: Axial contrast enhanced images from the thoracic inlet to the upper abdomen with coronal and sagittal re-formations using 100 ml Isovue 370 intravenous contrast material. Comparison: 12/15/2017. Findings: The the patient appears to be status post right middle lobe lobectomy and the 2.3 cm nodular mass along the right anteroinferior hilum on prior examination appears to have been resected. Areas of linear fibroatelectatic change and scarring now identified extending from the right hilum into the anterior right lung and posterolateral right lung base. Possible right hilar lymph node measures approximately 12 mm short axis diameter (images 36-38). No further mass lesion, area of consolidation, or adenopathy is appreciated. The bilateral lung lovelace are otherwise relatively well aerated. No effusion. No pneumothorax. Atherosclerotic changes to the thoracic aorta, and coronary arteries again noted without change. No cardiomegaly. No pericardial effusion. Surrounding musculoskeletal structures demonstrate healed right rib fractures. [id number] identified in the right anterior chest wall extending into the SVC. Limited upper abdomen demonstrates diffuse fatty infiltration to the liver along with heterogeneous enhancing right adrenal lesion measuring approximately 4.5 cm diameter and similar to prior examinations dating through 2014. Left adrenal gland appears normal. Impression: 1. The patient is status post right middle lobectomy with resection of the right infrahilar mass lesion. Minimal linear scarring and fibroatelectatic changes are now identified. No obvious recurrence or residual mass lesion. 2. 12 mm right hilar lymph node is stable/nonspecific. 3. Heterogeneous enhancing right adrenal mass similar to 2014 likely atypical adenoma although subsequent metastatic disease cannot definitively be excluded. Electronically Signed by Bandar Magaña MD 06/15/2018 06:30 A
--- NOTE | 2018-06-15 06:52 | REP ---
Clinical: Lung cancer. Status post resection and chemotherapy. Technique: Axial contrast enhanced images from the lung bases to the pubic symphysis using oral (per protocol) and 100 ml Isovue 370 intravenous contrast material delayed images of the abdomen as well as coronal and sagittal re-formations. Comparison: None. Findings: Lung bases demonstrate minimal linear fibroatelectatic change and scarring to the anterior and lateral right lung base. No effusion. Visualized heart and pericardium within normal limits. Diffuse fatty infiltration to the liver noted without focal hepatic lesion identified. Subtle area of vague enhancement along the lateral aspect of the left hepatic lobe (images 36-37) are nonspecific and may reflect focal fatty sparing. Spleen is upper limits of normal in size without focal splenic lesion identified. Pancreas, gallbladder, left adrenal gland and kidneys are relatively normal. Bilateral peripelvic and subcentimeter left cortical cysts and left extrarenal pelvis are identified. Heterogeneous enhancing right adrenal mass measures 4.4 cm maximal diameter and appears relatively similar to 01/27/2014 suggesting atypical adrenal adenoma although metastatic transformation cannot be excluded. The enteric system is without obstruction or acute inflammatory process. Normal terminal ileum and appendix are identified in the right lower quadrant. Few scattered diverticula noted without acute diverticulitis. Pelvis demonstrates normal bladder and age-appropriate uterus/adnexa. No ascites. No free air. No obvious intraperitoneal or retroperitoneal adenopathy. Abdominal aorta and vasculature demonstrates atherosclerotic changes without aneurysm or dissection. Musculoskeletal structures demonstrate age-related changes without focal osseous abnormality. Impression: 1. Hepatic steatosis with 1 cm area of enhancement along the lateral left hepatic lobe which is nonspecific. Differential diagnosis includes fatty sparing and possible metastatic focus. Short-term 3-6 month follow-up may be warranted. 2. Heterogeneous enhancing right adrenal mass similar in appearance to chest CT dated 2013 likely representing atypical adenoma. However, metastatic transformation cannot definitively be excluded and again, short-term follow-up may be warranted. 3. Few scattered sigmoid diverticula without acute diverticulitis. 4. No ascites, adenopathy, focal fatty infiltration, or further abnormality appreciated. Electronically Signed by Bandar Magaña MD 06/15/2018 06:43 A
== END ==
LOC: M RAD 16:27
PROVIDERS: ATTEND Internal Medicine Medical Oncology
DX: Z98.890 Other specified postprocedural states (principal); Z92.21 Personal history of antineoplastic chemotherapy; Z85.118 Personal history of other malignant neoplasm of bronchus and lung
CPT/HCPCS: 71260; 74177; Q9963; Q9967

== ENCOUNTER → 2018-06-23 | Outpatient (CLI) | payer OTHER ==
[~2018-06-23] MED LIST changes: -GASTROGRAFIN SOLUTION 30ML (Q9963) As Ordered ONE; -ISOVUE-370 76% 100ML VIAL (Q9967) As Ordered ONE
--- NOTE | 2018-06-23 14:43 | REP ---
PET/CT: HISTORY: Restaging lung cancer. 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 Postoperative chemotherapy. Chest CT June 14, 2018 shows a 12 mm right hilar lymph node which was felt to be stable and a right adrenal lesion. COMPARISONS: Chest CT June 14, 2018. Comparison PET/CT study is from December 09, 2017. TECHNIQUE: 57 minutes following the intravenous injection of a 9.6 mCi dose of F-18 FDG, three-dimensional PET scintigraphy is acquired from the skull base to the proximal thighs. Triplanar noncontrast CT scanning is acquired through the same anatomic range for attenuation correction, and image registration with scan parameters optimized to minimize radiation exposure to the patient. PET scintigraphy and CT datasets were fused and displayed on a workstation with multiplanar and projection display capability. PET/CT FINDINGS: There is mildly hypermetabolic uptake in the right chest wall at the inferior tip of the scapula laterally presumably at the thoracotomy site. There are adjacent healing rib fractures. The soft tissue chest wall uptake is between the ribs and just superficial to the ribs. Maximum standard uptake value here is 4.4. This may be post thoracotomy fibrosis and granulation tissue. It is difficult to completely exclude neoplastic tumor but this is less likely. There is no abnormal hilar or mediastinal hypermetabolic uptake. No abnormal pulmonary parenchymal hypermetabolic uptake is seen. The supraclavicular soft tissues are unremarkable. In the abdomen and pelvis, there is no abnormal hypermetabolic uptake. No abnormal hypermetabolic uptake is seen in the right adrenal and it is unchanged in size. No abnormal terrie uptake is seen in the abdomen or pelvis. IMPRESSION: There is an area of presumed postoperative fibrosis/granulation tissue along the right lateral chest wall at the level of the inferior tip of the scapula. No abnormal intrathoracic hypermetabolic uptake. Electronically Signed by Anthony Cobian MD 06/23/2018 03:13 P
== END ==
LOC: M PLARAD 11:43
PROVIDERS: ATTEND Internal Medicine Medical Oncology
DX: C34.2 Malignant neoplasm of middle lobe, bronchus or lung (principal)
CPT/HCPCS: 78815; A9552

== ENCOUNTER → 2018-07-09 | Outpatient (CLI) | payer OTHER ==
[~2018-07-09] MED LIST changes: +LIDOCAINE 2% MDV 20 ML VIAL As Ordered ONE
--- NOTE | 2018-07-26 07:14 | REPIR ---
DATE OF PROCEDURE: 07/09/2018 PREOPERATIVE DIAGNOSIS: Status post right internal jugular vein tunneled central venous catheter with subcutaneous port placement. POSTOPERATIVE DIAGNOSIS: Status post right internal jugular vein tunneled central venous catheter with subcutaneous port placement. PROCEDURE: Removal of right internal jugular vein tunneled central venous catheter with subcutaneous port. INDICATION: The patient is a 62-year-old female with a tunneled central venous catheter with subcutaneous port placement for chemotherapy who no longer requires access and will undergo removal of the tunneled central venous catheter with subcutaneous port. The procedure was described and explained to the patient in detail including drawing of pictures demonstrating the anatomy and the procedure. Risks, benefits and alternative treatment options were discussed with the patient. Alternative treatment options included but were not limited to, no intervention. Risks included but were not limited to, infection, bleeding, pneumothorax, hemothorax, possible need for further open surgical intervention, adverse reaction to the prepping and draping materials, adverse reaction to the local anesthetic, possible need for transfusion of blood products, cerebrovascular accident, myocardial infarction, pulmonary embolus, deep vein thrombosis (DVT), scarring, nerve injury, bruising, loss of limb, loss to life, poor outcome, poor results and poor satisfaction. Benefits included but were not limited to, removal of the tunneled central venous catheter with subcutaneous port and the associated reduction and risks associated with indwelling port and catheter. Risks of not performing the procedure included but were not limited to, infection, central venous stenosis and failure of the port function. The patient's questions were answered. The patient voices understanding and acceptance of these risks, benefits and alternative treatment options and consents to proceed. There were no promises or guarantees made to the patient regarding the procedure outcome and/or results. ANESTHESIA: Local with 20 mL of 2% lidocaine. FLUORO TIME: 0.1 minutes. CONTRAST: None. COMPLICATIONS: None. DRAINS: None. SPECIMENS: None. IMPLANTS: None. DESCRIPTION OF PROCEDURE: The patient was taken to the angiography suite, placed supine on the angiography room table and then prepped and draped in a standard surgical fashion. A fluoroscopic image was performed showing the position and alignment of the catheter to be in good position with no pneumothorax or hemothorax noted. The incision was then anesthetized with 2% lidocaine and the previous incision made for the insertion of the port was opened using a scalpel. The port was sharply dissected free and then removed. The tunnel from the port site to the internal jugular vein was closed using a #3-0 Monocryl in inverted [id number] fashion. The skin was then approximated using #3-0 Monocryl in inverted interrupted fashion. Steri-Strips and dressings were applied. The patient tolerated the procedure well. All instrument, sponge and needle counts were correct at the end of the case. There were no complications. Dr. Solis was present for and directed the entire case. The patient was transferred to the holding area and subsequently discharged in stable condition. The procedure results and findings were discussed with the patient in the postprocedure holding area with all of her questions being answered. Final fluoroscopic image showed there was no residual port or catheter remaining with no pneumothorax or hemothorax noted.
== END | disposition home or self-care (01) ==
LOC: M IRPRO 07-05 07:49
PROVIDERS: ATTEND Internal Medicine Medical Oncology
DX: Z45.2 Encounter for adjustment and management of vascular access device (principal); C34.90 Malignant neoplasm of unspecified part of unspecified bronchus or lung

== ENCOUNTER → 2018-07-20 | Outpatient (CLI) | payer OTHER ==
[~2018-07-20] MED LIST changes: -LIDOCAINE 2% MDV 20 ML VIAL As Ordered ONE
[2018-07-20 10:57] LABS: HEMATOCRIT 38.8 % (36.0-47.0); HEMOGLOBIN 12.4 g/dl (12.0-15.5); MEAN CORPUSCULAR HEMOGLOBIN 30.4 pg (27.0-33.0); MEAN CORPUSCULAR VOLUME 95.1 fl (80.0-96.0); RED BLOOD COUNT 4.08 10^6/uL (4.00-5.40); WHITE BLOOD COUNT 5.7 10^3/uL (4.0-10.0)
[2018-07-20 10:58] LABS: BASO % 0.4 % (0.0-1.0); EOS # 0.1 10^3/uL (0.0-0.50); EOS % 1.8 % (0.0-3.0); LYMPH # 1.5 10^3/uL (1.5-4.5); LYMPH % 26.8 % (24.0-44.0); MONO # 0.4 10^3/uL (0.0-0.8); MONO % 6.7 % (0.0-5.0); NEUTROPHILS # 3.7 10^3/uL (1.8-7.7); NEUTROPHILS % 63.8 % (36.0-66.0); PLATELET COUNT, AUTOMATED 157 10^3/uL (150-450)
[2018-07-20 11:06] LABS: CALCIUM LEVEL 9.1 MG/DL (8.8-10.2); CHOLESTEROL RISK RATIO 4.71 (<5); CREATININE FOR GFR 1.27 MG/DL (0.55-1.30); GLOMERULAR FILTRATION RATE 45.5 (>45); POTASSIUM SERUM 4.8 MEQ/L (3.5-5.1)
[2018-07-20 11:23] LABS: HEMOGLOBIN A1c 8.4 %
[2018-07-20 11:51] LABS: MAU/CREAT RATIO 9.9 MCG/MG (0.0-30.0)
== END ==
LOC: M SMT 08:39
PROVIDERS: ATTEND Physician Assistant
DX: E11.9 Type 2 diabetes mellitus without complications (principal); E78.2 Mixed hyperlipidemia; K21.9 Gastro-esophageal reflux disease without esophagitis

== ENCOUNTER → 2018-09-17 | Outpatient (CLI) | payer OTHER ==
--- NOTE | 2018-09-17 15:10 | REPMRS ---
Patient History The patient states she has not had a clinical breast exam in over a year. Patient is postmenopausal and had first child at age 37. Family history of breast cancer under age 50 in sister, ovarian cancer in mother, breast cancer under age 50 in maternal aunt, prostate cancer in father. 3D TOMOSYNTHESIS WAS PERFORMED. Digital Woman Screen Mammo: September 17, 2018 - Exam #: [id number] Bilateral CC and MLO view(s) were taken. Technologist: Maida Leonard Technologist Prior study comparison: December 12, 2016, digital woman screen mammo performed at [facility] [place] to [facility]. October 12, 2015, digital woman screen mammo performed at [facility] [place] to [facility]. FINDINGS: The breast tissue is heterogeneously dense. This may lower the sensitivity of mammography. There has been no change in the appearance of the mammogram from the prior studies. There is a moderate amount of residual fibroglandular tissue which is fairly symmetric. There is no interval development of dominant mass, areas of architectural distortion, or clustered microcalcification typical of malignancy. Assessment: BI-RADS/ACR category 1 mammogram. Negative Mammogram. Recommendation Routine screening mammogram in 1 year (for women over age 40). This mammogram was interpreted with the aid of an FDA-approved computer-aided dectection system. Electronically Signed By: Denny Roque MD 09/17/18 [id number]
--- NOTE | 2018-09-21 13:47 | DEXA ---
AP SPINE L1 - L4 0.973 -1.8 -0.8 LT FEMUR TOTAL 1.013 0.0 1.1 LT NECK 0.918 -0.9 0.5 RT FEMUR TOTAL 0.943 -0.5 0.5 RT NECK 0.854 -1.3 0.0 TOTAL BODY TOTAL OTHER COMMENTS: Normal bone densitometry of the left hip. There is low bone density of the spine. There is low bone density of the right hip. The density of the spine has decreased 9.2% since 11/09/2008. The density of the left hip has decreased 7.7% since 11/09/2008. The density of the right hip has decreased 9.8% since 11/09/2008. The decreased density of the spine does represent a significant change. The decreased density of the left hip does represent a significant change. The decreased density of the right hip does represent a significant change. FOLLOW-UP: Recommendation for the next bone density exam: 2 years. GUSTAVO
== END ==
LOC: M WHC 13:34
PROVIDERS: ATTEND Physician Assistant
DX: Z12.31 Encounter for screening mammogram for malignant neoplasm of breast (principal); M85.80 Other specified disorders of bone density and structure, unspecified site

== ENCOUNTER → 2018-11-17 | Outpatient (CLI) | payer OTHER ==
[~2018-11-17] MED LIST changes: -ASPI1TAB PO; +ASPI81TA26 PO; +CALC1TAB26 PO; +TRES1INJ SC
[2018-11-17 10:27] LABS: BASO % 0.3 % (0.0-1.0); EOS # 0.3 10^3/uL (0.0-0.50); EOS % 3.7 % (0.0-3.0); HEMATOCRIT 38.4 % (36.0-47.0); LYMPH # 1.6 10^3/uL (1.5-4.5); LYMPH % 23.1 % (24.0-44.0); MEAN CORPUSCULAR HEMOGLOBIN 29.9 pg (27.0-33.0); MEAN CORPUSCULAR HGB CONC 31.3 g/dl (32.0-36.5); MEAN CORPUSCULAR VOLUME 95.5 fl (80.0-96.0); MONO # 0.5 10^3/uL (0.0-0.8); MONO % 7.7 % (0.0-5.0); NEUTROPHILS # 4.4 10^3/uL (1.8-7.7); NEUTROPHILS % 64.8 % (36.0-66.0); PLATELET COUNT, AUTOMATED 162 10^3/uL (150-450); RED BLOOD COUNT 4.02 10^6/uL (4.00-5.40); WHITE BLOOD COUNT 6.8 10^3/uL (4.0-10.0)
[2018-11-17 10:54] LABS: BILIRUBIN,TOTAL 0.3 MG/DL (0.2-1.0); CALCIUM LEVEL 9.2 MG/DL (8.8-10.2); CREATININE FOR GFR 1.15 MG/DL (0.55-1.30); GLOMERULAR FILTRATION RATE 50.9 (>45); POTASSIUM SERUM 5.2 MEQ/L (3.5-5.1); TOTAL PROTEIN 7.2 GM/DL (6.4-8.2)
[2018-11-17 11:00] LABS: CREATININE, URINE 96.1 MG/DL; MALB URINE SIEMENS 10.6 MG/L
[2018-11-17 11:01] LABS: HEMOGLOBIN A1c 7.3 %
== END ==
LOC: M SMT 08:41
PROVIDERS: ATTEND Physician Assistant
DX: E11.9 Type 2 diabetes mellitus without complications (principal)

== ENCOUNTER → 2018-12-06 | Outpatient (CLI) | payer OTHER ==
[~2018-12-06] MED LIST changes: +ISOVUE-370 76% 100ML VIAL (Q9967) As Ordered ONE
--- NOTE | 2018-12-06 11:07 | REP ---
CT CHEST WITH IV CONTRAST: TECHNIQUE: Axial contrast enhanced images from the thoracic inlet to the upper abdomen using 100 mL Isovue 370 intravenous contrast material with multiplanar reformations. COMPARISON: 06/14/2018 as well as other prior exams. Patient has had a prior right middle lobectomy. Mild postsurgical changes in that region appear stable. There is new subcarinal adenopathy seen which was not present on the prior exam measuring 2.9 x 2.3 cm. Mildly enlarged right hilar lymph node 1.2 cm in short axis is minimally more prominent than on the prior study when short axis dimension was approximately 1 cm. There are a few subcentimeter left hilar lymph nodes. No axillary adenopathy is seen. There is an atherosclerotic calcification of the thoracic aorta without aneurysm. Heart is normal in size. There is no pleural or pericardial effusion. A nodule in the isthmus of the thyroid is stable. This measures about 1.5 cm in diameter. Scattered fibrotic changes are seen in the lungs without suspicious nodule. There are degenerative changes of the spine. There is fatty infiltration of the liver. Partially imaged right adrenal mass appears grossly unchanged. IMPRESSION: New subcarinal adenopathy measuring 2.9 x 2.3 cm. Mildly enlarged right hilar lymph node. No other suspicious findings. Electronically Signed by Denny Roque MD 12/07/2018 11:31 A
== END ==
LOC: M RAD 09:44
PROVIDERS: ATTEND Internal Medicine Hematology & Oncology
DX: C34.2 Malignant neoplasm of middle lobe, bronchus or lung (principal)
CPT/HCPCS: 71260; Q9967

== ENCOUNTER → 2018-12-22 | Outpatient (CLI) | payer OTHER ==
[~2018-12-22] MED LIST changes: +ATIV1TAB7 PO; +BASA100I SC; +INVO100T PO; -ISOVUE-370 76% 100ML VIAL (Q9967) As Ordered ONE; +MELO7.5T35 PO
--- NOTE | 2018-12-23 13:35 | REP ---
PET/CT: HISTORY: Restaging lung carcinoma right middle lobe. COMPARISONS: Comparison PET/CT June 23, 2018. Comparison CT study of the chest December 06, 2018. TECHNIQUE: 50 minutes following the intravenous injection of a 8.83 mCi dose of F-18 FDG, three-dimensional PET scintigraphy is acquired from the skull base to the proximal thighs. Triplanar noncontrast CT scanning is acquired through the same anatomic range for attenuation correction, and image registration with scan parameters optimized to minimize radiation exposure to the patient. PET scintigraphy and CT datasets were fused and displayed on a workstation with multiplanar and projection display capability. PET/CT FINDINGS: Head and neck soft tissue show no significant abnormality. There is a small but hypermetabolic lymph node in the superior aspect of the middle mediastinum just along the right lateral border of the upper esophagus. Maximum standard uptake value within this node is 6.11. The lymph node measures 1 cm. Recently identified subcarinal adenopathy is hypermetabolic as well. Maximum standard uptake value in the subcarinal adenopathy is 12.01. There is mildly hypermetabolic uptake in the previously noted right adrenal nodule. Maximum standard uptake value here today is 4.70. This was not previously hypermetabolic, 2.73. No other abnormal abdominal or pelvic hypermetabolic uptake is seen. In the lung parenchyma, there are patchy areas of ill-defined mixed interstitial and alveolar infiltrate in the lung lovelace which appear to be new from the prior study. Several of these areas show mildly hypermetabolic uptake. The most avid of these is in the anterior segment of the right upper lobe. Maximum standard uptake value here is 5.75. These infiltrates are new when compared with the December 06, 2018 study and these are felt to be inflammatory. IMPRESSION: New mediastinal hypermetabolic terrie uptake suspicious for metastatic disease. There is now some hypermetabolic uptake in the right adrenal lesion as well. New infiltrates bilaterally in the lung lovelace suggestive of pneumonia. Electronically Signed by Anthony Cobain MD 12/23/2018 02:24 P
== END ==
LOC: M PLARAD 15:09
PROVIDERS: ATTEND Internal Medicine Hematology & Oncology
DX: C34.2 Malignant neoplasm of middle lobe, bronchus or lung (principal)
CPT/HCPCS: 78815; A9552

== ENCOUNTER → 2019-01-07 | Outpatient (CLI) | payer OTHER ==
[~2019-01-07] MED LIST changes: +LIDO2.5C15 TOP; +LIDOCAINE 1% MDV 20ML VIAL As Ordered ONE; +MIDAZOLAM INJ 2 MG/2 ML VIAL (J2250) As Ordered ONE; +ONDA8TAB7 PO; +PROC10TA4 PO; +VANCOMYCIN HCL 500 MG/10 ML VIAL (J3370) As Ordered ONE; +diphenhydrAMINE INJ 50MG/ML VIAL (J1200) As Ordered ONE; +fentaNYL 100 MCG/2 ML INJECTION (J3010) As Ordered ONE
--- NOTE | 2019-01-07 09:22 | IPNPDOC ---
Subjective Date Seen The patient was seen on 01/07/19. Subjective Chief Complaint/HPI pre op diagnosis: cancer. needs port for chemo Objective Physical Examination Other physical findings ASA II Malampatti II PRABHA yes NPO yes no problems with sedation before heart rate normal breathing normally at rest Assessment /Plan Plan/VTE VTE Prophylaxis Ordered?: No Plan port under moderate sedation VS, I&O, 24H, Fishbone Vital Signs/I&O Vital Signs Date Time Temp Pulse Resp B/P (MAP) Pulse Ox O2 Delivery O2 Flow Rate FiO2 01/07/19 09:16 96.8 92 18 98 WILLI MURPHY MD Jan 07, 2019 09:22
--- NOTE | 2019-01-07 11:07 | ROOPDOC ---
[facility] Report Of Operation Report of Operation DATE OF PROCEDURE: 01/07/19 PREPROCEDURE DIAGNOSES: lung ca POSTPROCEDURE DIAGNOSES: lung ca PROCEDURE: right IJ port SURGEON: Chayito ANESTHESIA: moderate sedation ESTIMATED BLOOD LOSS: Approximately [5] mL. COMPLICATIONS: [none]. right IJ patent. Right IJ port placed WILLI MURPHY MD Jan 07, 2019 11:07
[2019-01-07 14:04] VITALS: BP 152/75
--- NOTE | 2019-01-07 15:22 | REP ---
Ultrasound and fluoroscopic guided port placementUltrasound of the neckClinical Information: Cancer. Needs port for chemotherapyPhysician: Dr. Salinasrocedure: The patient was advised of the benefits, risks, and alternatives of the procedure and informed consent was obtained.A time out was performed with verification of the patient's name, MRN, site of procedure, and type of procedure to be performed. The patient was positioned in the supine position on the angiographic table. The site was prepped and draped in the usual sterile fashion.Moderate sedation was performed by the physician including the presence of an independent trained observer that assisted in monitoring the patient's level of consciousness and physiological status. Following the administration of Versed and Fentanyl the physician spent 45 minutes of continuous [id number] time with the patient.Ultrasound of the neck reveals a patent and compressible right internal jugular vein.A quill picking machine operator radiograph reveals no significant abnormality. The neck and anterior chest wall were anesthetized with lidocaine. The right internal jugular vein was accessed using a microintroducer needle via a lateral approach. A 0.018 cope wire was advanced into the superior vena cava, the needle was removed and a microintroducer sheath was placed. An Amplatz wire was then passed into the inferior vena cava. Incisions at the internal jugular access site and anterior chest wall were made using a scalpel. An incision was made over the anterior chest wall. A small pocket was created using a combination of blunt and sharp dissection. A tunneler was then used to pass the catheter from the pocket to the neck puncture site. An 8 Macedonian clear view power port was then positioned in the pocket. The catheter was then measured and cut. The microintroducer sheath was exchanged for a peel-away sheath. The catheter was passed through the peel-away sheath into the internal jugular vein, and the peel-away sheath was removed. The port was then accessed with a Murphy needle. The port flushes and aspirates easily. The puncture site in the neck was closed. The chest wall incision was then closed with 2-0 Vicryl and 4-0 Monocryl. A sterile dressing was then applied.The patient tolerated the procedure well and was returned to the PRU in stable condition.EBL: < 5 mlComplications: NoneConclusion:1. Successful placement of an 8 Macedonian clear view power injectable port via the right internal jugular vein. The port is ready for immediate use. 2. Patient to follow up in IR clinic in 2 weeks Electronically Signed by Marni Stratton MD 01/07/2019 03:21 P
== END ==
LOC: M IRPRO 08:40
PROVIDERS: ATTEND Radiology Diagnostic Radiology
DX: C34.2 Malignant neoplasm of middle lobe, bronchus or lung (principal); D70.1 Agranulocytosis secondary to cancer chemotherapy; Z79.899 Other long term (current) drug therapy
CPT/HCPCS: 36563; 76937; 77001; 99152; 99153; C1769; C1788; C1894; J1200; J2250; J3010; J3370

== ENCOUNTER 2019-01-15 08:59 | Outpatient (CLI) | payer OTHER ==
[~2019-01-15] VITALS: Ht 160 cm; Wt 92.6 kg
[~2019-01-15 08:59] MED LIST changes: -BREO1INH3 PO; -LIDOCAINE 1% MDV 20ML VIAL As Ordered ONE; -MIDAZOLAM INJ 2 MG/2 ML VIAL (J2250) As Ordered ONE; -ONDA8TAB7 PO; -PROC10TA4 PO; -VANCOMYCIN HCL 500 MG/10 ML VIAL (J3370) As Ordered ONE; -diphenhydrAMINE INJ 50MG/ML VIAL (J1200) As Ordered ONE; -fentaNYL 100 MCG/2 ML INJECTION (J3010) As Ordered ONE
[2019-01-15 09:15] VITALS: BP 186/85
[2019-01-15] MEDS ORDERED: FILGRASTIM 480 MCG/0.8 ML SYRINGE (J1442) SC ONE (09:30)
[2019-01-17] MEDS ORDERED: PROC10TA4 PO (15:58)
[2019-01-17] MEDS ORDERED: ONDA8TAB7 PO (15:58)
[2019-01-21] MEDS ORDERED: LOMO2.5T PO (14:42)
== END 2019-01-15 09:45 | disposition home or self-care (01) ==
LOC: M OPCLIPED 08:59 → M PED 09:04 → M OPCLIPED 09:45
PROVIDERS: ATTEND Internal Medicine Hematology & Oncology
DX: C34.2 Malignant neoplasm of middle lobe, bronchus or lung (principal)
CPT/HCPCS: 96372; J1442

== ENCOUNTER 2019-01-16 08:44 | Outpatient (CLI) | payer OTHER ==
[~2019-01-16] VITALS: Ht 160 cm; Wt 92.6 kg
[2019-01-16] MEDS ORDERED: FILGRASTIM 480 MCG/0.8 ML SYRINGE (J1442) SC ONE (10:00)
[2019-01-17] MEDS ORDERED: ONDA8TAB7 PO (15:58)
[2019-01-17] MEDS ORDERED: PROC10TA4 PO (15:58)
[2019-01-21] MEDS ORDERED: LOMO2.5T PO (14:42)
== END 2019-01-16 09:11 | disposition home or self-care (01) ==
LOC: M OPCLIPED 08:44 → M PED 08:49 → M OPCLIPED 09:11
PROVIDERS: ATTEND Internal Medicine Hematology & Oncology
DX: C34.2 Malignant neoplasm of middle lobe, bronchus or lung (principal)
CPT/HCPCS: 96372; J1442

== ENCOUNTER 2019-01-22 09:53 | Inpatient (IN) | payer OTHER ==
[~2019-01-22] VITALS: Ht 160 cm; Wt 96.2 kg
[~2019-01-22 09:53] MED LIST changes: +LOMO2.5T PO; +ONDA8TAB7 PO; +PROC10TA4 PO
[2019-01-22] MEDS ORDERED: NS 1,000 ML IV ONE (10:30)
[2019-01-22] MEDS ORDERED: ACETAMINOPHEN TAB 650MG DOSE (2X325MG) PO ONE (11:15)
[2019-01-22 11:46] LABS: HEMATOCRIT 23.9 % (36.0-47.0); HEMOGLOBIN 7.6 g/dl (12.0-15.5); LYMPH % 68.4 % (24.0-44.0); MEAN CORPUSCULAR HEMOGLOBIN 28.9 pg (27.0-33.0); MEAN CORPUSCULAR HGB CONC 31.8 g/dl (32.0-36.5); MEAN CORPUSCULAR VOLUME 90.9 fl (80.0-96.0); MONO % 5.3 % (0.0-5.0); NEUTROPHILS % 26.3 % (36.0-66.0); RED BLOOD COUNT 2.63 10^6/uL (4.00-5.40)
[2019-01-22 11:52] LABS: NEUTROPHILS # 0.1 10^3/uL (1.8-7.7); PLATELET COUNT, AUTOMATED 6 10^3/uL (150-450); WHITE BLOOD COUNT 0.2 10^3/uL (4.0-10.0)
[2019-01-22 11:53] LABS: LYMPH # 0.1 10^3/uL (1.5-4.5)
[2019-01-22] MEDS ORDERED: SODIUM CHLORIDE 0.9% INJ 10 ML SYR IV PRN (12:00)
[2019-01-22] MEDS ORDERED: CLINDAMYCIN 600 MG in APPROPRIATE DILUENT 1 EA IV ONE (13:00)
[2019-01-22] MEDS ORDERED: FILGRASTIM 300 MCG/0.5 ML SYRINGE (J1442 PER 1MCG) SC ONE (13:15)
[2019-01-22 13:47] LABS: BLOOD UREA NITROGEN 35 MG/DL (7-18); CREATININE FOR GFR 2.73 MG/DL (0.55-1.30); GLOMERULAR FILTRATION RATE 18.8 (>45); GLUCOSE, FASTING 144 MG/DL (70-100)
[2019-01-22 13:51] LABS: CALCIUM LEVEL 7.3 MG/DL (8.8-10.2); CARBON DIOXIDE LEVEL 16 MEQ/L (21-32); CHLORIDE LEVEL 106 MEQ/L (98-107); CK-MB VALUE MASS < 1.0 NG/ML (<3.6); CPK CREATINE PHOSPHOKINASE 26 U/L (26-192); MB/CK RELATIVE INDEX 3.85 (< OR =4); POTASSIUM SERUM 4.1 MEQ/L (3.5-5.1); SODIUM LEVEL 135 MEQ/L (136-145); TROPONIN I < 0.02 NG/ML (< 0.10)
[2019-01-22] MEDS ORDERED: CIPROFLOXACIN 400 MG in APPROPRIATE DILUENT 1 EA IV ONE (14:00)
[2019-01-22] MEDS ORDERED: CHLO25TA PO (14:16)
[2019-01-22] MEDS ORDERED: LOMO2.5T PO (14:18)
[2019-01-22 16:10] VITALS: BP 91/56
[2019-01-22] MEDS ORDERED: LOMOTIL 2.5MG/0.025MG TABLET PO PRN (16:30)
[2019-01-22] MEDS ORDERED: ONDANSETRON 4 MG TAB (S0181) PO PRN (16:30)
[2019-01-22] MEDS ORDERED: CYCLOBENZAPRINE 5MG TABLET PO PRN (16:30)
[2019-01-22] MEDS ORDERED: ACETAMINOPHEN TAB 650MG DOSE (2X325MG) PO PRN (16:45)
[2019-01-22] MEDS ORDERED: IPRATROPIUM 0.5MG/ALBUTEROL 2.5MG INH SOL UD 3ML (DUONEB)(J7620) NEB PRN (17:00)
--- NOTE | 2019-01-22 17:09 | HPEPDOC ---
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 PT was in her USOH until 6 days prior to admission when, after getting her chemo shot, she noted new onset LE pain which progressively worsened. Pt also noted new diarrhea and general unwell feeling since getting her chemo. Pt denies other symptoms of fever, chills, CP, SOB, ab pain, leg swelling. Pt endorses N/V. Pt called her oncologist who wrote her for a script for lomotil. Pt presented to the ED due to the pain being uncontrollable at home. In the ED pt found to be pancytopenic to WBC 0.2, hgb 7.6, plts of 6. Pt also found to have marginal BP PAST MEDICAL HISTORY: 1. small cell lung CA currently undergoing chemo 2. DMII 3. HTN 4. HLD 5. COPD PAST SURGICAL HISTORY: 1. Middle lobectomy 2. Cataract surgery 3. port placement SOCIAL HISTORY: Lives alone previously 2pk/day x50yr smoker trying to quit denies alcohol denies illicits FAMILY HISTORY: -HTN, DMII, CA ALLERGIES: Please see below. REVIEW OF SYSTEMS: 10 point ROS reviewed and pertinent pos and neg documented as per HPI. All other reviewed ROS neg. HOME MEDICATIONS: Please see below. PHYSICAL EXAMINATION: VITAL SIGNS: Please see below. GENERAL APPEARANCE: obese appearing female laying in bed in NAD HEENT: PERRL, EOMI CARDIOVASCULAR: RRR, nl s1/2 +systolic murmur, no rg appreciated LUNGS: wheeze throughout ABDOMEN: soft, NTTP, ND MUSCULOSKELETAL: no gross deformities EXTREMITIES: no edema, intact distal pulses NEUROLOGICAL: no focal deficits PSYCHIATRIC: nl mental status, A&Ox3 LABORATORY DATA: See below. MICROBIOLOGY: Blood cultures pending ASSESSMENT: Pt is a 63y/o with hx of small cell lung CA currently undergoing chemo, DMII, HTN, HLD and COPD who presents for uncontrollable b/l leg pain but found to be pancytopenic. PLAN: 1. Pancytopenia in the setting of chemotherapy -s/p 2U PRBCs -s/p 2U plts -s/p Neupogen -Trend CBC for WBC, hgb and plts -heme/once consult -will hold off on Abx as pt is afebrile and no e/o infection currently -send CXR 2. ANN -Cr 2.73 from 1.28 on 01/10/19 -suspect some element of hypovolemia given pt hypotensive and responded to fluids when arrived -cont. fluids 100ml/hr -trend BMP for Cr -send UA 3. DMII -FSG -ISS 4. COPD -cont. home inhaler -duonebs q4hr PRN SOB/Wheezing -cont. to monitor resp status 5. HTN -trend BP -will hold home anti-HTN meds as pt was hypotensive previously 6. HLD -cont. home meds DVT PPX: SCDs given low plts Disposition: Home likely early next week Vital Signs Vital Signs Date Time Temp Pulse Resp B/P (MAP) Pulse Ox O2 Delivery O2 Flow Rate FiO2 01/22/19 15:15 111 126/73 (90) 100 01/22/19 11:54 20 Nasal Cannula 3.0 01/22/19 10:08 98.6 Laboratory Data Labs 24H Laboratory Tests 2 01/22/19 11:30: Immature Granulocyte % (Auto) 0.0, White Blood Count 0.2*L, Red Blood Count 2.63L, Hemoglobin 7.6L, Hematocrit 23.9L, Mean Corpuscular Volume 90.9, Mean Corpuscular Hemoglobin 28.9, Mean Corpuscular Hemoglobin Concent 31.8L, Red Cell Distribution Width 15.9H, Platelet Count 6*L, Neutrophils (%) (Auto) 26.3L, Lymphocytes (%) (Auto) 68.4H, Monocytes (%) (Auto) 5.3H, Eosinophils (%) (Auto) 0.0, Basophils (%) (Auto) 0.0, Neutrophils # (Auto) 0.1L, Lymphocytes # (Auto) 0.1L, Monocytes # (Auto) 0.0, Eosinophils # (Auto) 0.0, Basophils # (Auto) 0.0, Nucleated Red Blood Cells % (auto) 0.0, Immature Platelet Fraction 8.3, Anion Gap 13, Glomerular Filtration Rate 18.8L, Blood Urea Nitrogen 35H, Creatinine 2.73H, Sodium Level 135L, Potassium Level 4.1, Chloride Level 106, Carbon Dioxide Level 16L, Calcium Level 7.3L, Total Creatine Kinase 26, Creatine Kinase MB < 1.0, Creatine Kinase MB Relative Index 3.85, Troponin I < 0.02 CBC/BMP Laboratory Tests 01/22/19 11:30 Red Blood Count 2.63 L, Mean Corpuscular Volume 90.9, Mean Corpuscular Hemoglobin 28.9, Mean Corpuscular Hemoglobin Concent 31.8 L, Red Cell Distribution Width 15.9 H, Neutrophils (%) (Auto) 26.3 L, Lymphocytes (%) (Auto) 68.4 H, Monocytes (%) (Auto) 5.3 H, Eosinophils (%) (Auto) 0.0, Basophils (%) (Auto) 0.0, Neutrophils # (Auto) 0.1 L, Lymphocytes # (Auto) 0.1 L, Monocytes # (Auto) 0.0, Eosinophils # (Auto) 0.0, Basophils # (Auto) 0.0, Calcium Level 7.3 L, Total Creatine Kinase 26 Microbiology Microbiology 01/22/19 Blood Culture, Received Pending Home Medications Scheduled Aspirin (Aspirin EC) 81 Mg Tab, 81 MG PO DAILY Atorvastatin Calcium (Atorvastatin Calcium) 80 Mg Tab, 80 MG PO QHS Calcium Carbonate/Vitamin D3 (Calcium 600-Vit D3 800 Tablet) 1 Tab Tab, 1 TAB PO BID Canagliflozin (Invokana) 100 Mg Tablet, 100 MG PO DAILY Chlorthalidone (Chlorthalidone) 25 Mg Tablet, 12.5 MG PO DAILY Fluticasone/Vilanterol (Breo Ellipta 200-25 Mcg INH) 1 Inh Inh, 1 PUFF INH DAILY Gabapentin (Gabapentin) 400 Mg Cap, 400 MG PO TID Insulin Glargine,Hum.rec.anlog (Basaglar Kwikpen U-100) 100 Unit/1 Ml Insuln.pen, 40 UNITS SC DAILY Lidocaine/Prilocaine (Lidocaine-Prilocaine Cream) 2.5%/2.5% Cream..g., 1 DOSE TOP ASDIRECTED Apply dime size to port area. Do not rub in, cover with saran wrap to protect clothing. Lisinopril (Lisinopril) 20 Mg Tab, 20 MG PO DAILY Loratadine (Loratadine) 10 Mg Tab, 10 MG PO DAILY Meloxicam (Meloxicam) 7.5 Mg Tablet, 7.5 MG PO DAILY Metformin HCl (Metformin HCl) 1,000 Mg Tab, 1,000 MG PO BID Montelukast Sodium (Montelukast Sodium) 10 Mg Tab, 10 MG PO QHS Pantoprazole Sodium (Pantoprazole Sodium) 20 Mg Tab, 20 MG PO BID Scheduled PRN Albuterol Sulfate (Ventolin Hfa) 108 Mcg/Act Aer, 2 PUFF INH Q4H PRN for SHORTNESS OF BREATH Cyclobenzaprine HCl (Cyclobenzaprine HCl) 5 Mg Tab, 5 MG PO TID PRN for MUSCLE SPASMS Diphenoxylate HCl/Atropine (Lomotil 2.5-0.025 mg Tablet) 1 Each Tablet, 1 TAB PO QID PRN for DIARRHEA Ondansetron HCl (Ondansetron HCl) 8 Mg Tablet, 8 MG PO Q6H PRN for NAUSEA OR VOMITING Prochlorperazine Maleate (Prochlorperazine Maleate) 10 Mg Tablet, 10 MG PO Q6H PRN for NAUSEA OR VOMITING Allergies Coded Allergies: amoxicillin (Verified Allergy, Intermediate, rash, 01/22/19) clavulanic acid (Verified Allergy, Intermediate, rash, 01/22/19) A-FIB/CHADSVASC A-FIB History Current/History of A-Fib/PAF?: No DELBERT WAY MD Jan 22, 2019 17:09
[2019-01-22 20:00] VITALS: BP 103/52
[2019-01-22] MEDS: PANTOPRAZOLE 20 MG TAB PO SCH (20:14)
[2019-01-22] MEDS: MONTELUKAST 10 MG TAB PO SCH (20:14)
[2019-01-22] MEDS ORDERED: ATORVASTATIN 20 MG TAB PO SCH (21:00)
--- NOTE | 2019-01-22 22:29 | REPVR ---
EXAM: XR Chest, 2 Views EXAM DATE/TIME: 01/22/2019 9:25 PM CLINICAL HISTORY: 63 years old, female; Other: Hypotension TECHNIQUE: Imaging protocol: XR of the chest, 2 views. COMPARISON: CR CHEST 2 VIEWS 02/05/2018 8:13 AM FINDINGS: Tubes, catheters and devices: Mediport catheter enters from the right side. Lungs: Suboptimal inspiratory effort. Atelectasis right lower lobe. Pleural space: Unremarkable. No pleural effusion. No pneumothorax. Heart/Mediastinum: Unremarkable. No cardiomegaly. Bones/joints: Unremarkable. IMPRESSION: No acute findings. Electronically signed by: Demetrio Chavez On 01/22/2019 22:29:19 PM
--- NOTE | 2019-01-22 23:55 | REPVR ---
EXAM: CT Abdomen and Pelvis Without Contrast EXAM DATE/TIME: 01/22/2019 11:28 PM CLINICAL HISTORY: 63 years old, female; Abdominal pain; Localized; Right lower quadrant (rlq); Additional info: Right lower quadrant abdominal pain TECHNIQUE: Imaging protocol: Axial computed tomography images of the abdomen and pelvis without contrast. Coronal and sagittal reformatted images were created and reviewed. Radiation optimization: All CT scans at this facility use at least one of these dose optimization techniques: automated exposure control; mA and/or kV adjustment per patient size (includes targeted exams where dose is matched to clinical indication); or iterative reconstruction. COMPARISON: CT ABD PELVIS WITH CONTRAST 06/14/2018 5:59 PM FINDINGS: Lungs: Bibasilar infiltrates likely atelectatic. Clinical correlation to exclude infectious etiologies suggested. Liver: There is a diffuse decrease in hepatic parenchymal density, consistent with fatty infiltration. Prominent left lobe of the liver with mild lobular contour and indicate early cirrhotic morphology. Gallbladder and bile ducts: Normal. No calcified stones. No ductal dilation. Pancreas: There is diffuse pancreatic atrophy. Spleen: There is moderate splenomegaly with a maximum span of 15 centimeters. No focal abnormalities demonstrated. Adrenals: There is a focal mildly heterogeneous hypodense mass in the right adrenal gland measures 2.4 x 4.8 cm again redemonstrated. Small focus of calcification demonstrated within the mass. Findings stable in comparison to the prior study. Finding may represent an adrenal adenoma although a myelolipoma to be considered as well. Kidneys and ureters: Bilateral parapelvic cysts. Otherwise normal. No hydronephrosis. Stomach and bowel: There is a diffusely boggy appearance of the right colon with diffuse wall thickening, mural stratification and an ahasutral countour. There are pericolonic inflammatory changes. Findings consistent with acute colitis versus reactive change. No abscess demonstrated. Appendix: The appendix demonstrates diffuse distention measuring up to 11 mm with focal wall thickening but without significant periappendiceal inflammation. Findings may be consistent with acute appendicitis. Intraperitoneal space: Normal. No free air. No significant fluid collection. Vasculature: The aorta demonstrates mild atherosclerotic calcification. Lymph nodes: Normal. No enlarged lymph nodes. Bladder: Unremarkable. Reproductive: Unremarkable as visualized. Bones/joints: Fracture deformity right fifth rib consistent with old trauma. The spine demonstrates mild degenerative changes. Soft tissues: Unremarkable. IMPRESSION: 1. There is a diffuse decrease in hepatic parenchymal density, consistent with fatty infiltration. 2. Prominent left lobe of the liver with mild lobular contour and indicate early cirrhotic morphology. 3. There is moderate splenomegaly with a maximum span of 15 centimeters. No focal abnormalities demonstrated. 4. There is diffuse pancreatic atrophy. 5. There is a focal mildly heterogeneous hypodense mass in the right adrenal gland again redemonstrated. Findings stable in comparison to the prior study. Finding may represent an adrenal adenoma although a myelolipoma to be considered as well. 6. There is a diffusely boggy appearance of the right colon with diffuse wall thickening, mural stratification and an ahasutral countour. There are pericolonic inflammatory changes. Findings consistent with acute colitis versus reactive change. No abscess demonstrated. 7. Possible acute appendicitis. It should be noted that the appendix measures up to 10 mm previously although did not demonstrate focal wall thickening as noted on today's study. Electronically signed by: Demetrio Chavez On 01/22/2019 23:54:50 PM
[2019-01-23] VITALS (77 sets, daily range): BP systolic 78–126; BP diastolic 42–74; O2SAT 97
[2019-01-23] MEDS ORDERED: CIPROFLOXACIN 400 MG in APPROPRIATE DILUENT 1 EA IV SCH (00:15)
--- NOTE | 2019-01-23 00:49 | IPNPDOC ---
Text Note Date of Service The patient was seen on 01/23/19. NOTE Called by RN. Patient still complaining of right lower quadrant pain. Abdullahi was seen and examined at the bedside. Patient does have a direct and rebound tenderness in right lower lobe quadrant on examination. CT of the abdomen and pelvis was obtained without contrast as patient has ANN on CK D, and the CT abdomen and pelvis shows possible acute appendicitis. Appendix measuring up to 10 mm but has a also has a focal wall thickness today. They're also diffusely boggy appearance of right colon with diffuse wall thickening mural stratification and pericolonic inflammatory changes. Findings also consistent with acute colitis versus reactive change. No abscess Dr. Harley was called and discussed. We'll transfuse patient platelets and hemoglobin. Keep patient nothing by mouth and if patient is medically stable possible be taken to or for emergent surgery. Will start IV Flagyl and Cipro. Morphine sulfate for pain management and nothing by mouth VS,Fishbone, I+O VS, Fishbone, I+O Laboratory Tests 01/22/19 11:30 Red Blood Count 2.63 L, Mean Corpuscular Volume 90.9, Mean Corpuscular Hemoglobin 28.9, Mean Corpuscular Hemoglobin Concent 31.8 L, Red Cell Distribution Width 15.9 H, Neutrophils (%) (Auto) 26.3 L, Lymphocytes (%) (Auto) 68.4 H, Monocytes (%) (Auto) 5.3 H, Eosinophils (%) (Auto) 0.0, Basophils (%) (Auto) 0.0, Neutrophils # (Auto) 0.1 L, Lymphocytes # (Auto) 0.1 L, Monocytes # (Auto) 0.0, Eosinophils # (Auto) 0.0, Basophils # (Auto) 0.0, Calcium Level 7.3 L, Total Creatine Kinase 26 Vital Signs Date Time Temp Pulse Resp B/P (MAP) Pulse Ox O2 Delivery O2 Flow Rate FiO2 01/22/19 22:30 3.0 01/22/19 20:00 97.8 111 20 103/52 (69) 98 01/22/19 11:54 Nasal Cannula I&O- Last 24 Hours up to 6 AM 01/23/19 06:00 Intake Total 0 ml Output Total 0 ml Balance 0 ml CIELO ALEXANDER MD Jan 23, 2019 00:49
[2019-01-23] MEDS ORDERED: metroNIDAZOLE 500 MG in APPROPRIATE DILUENT 1 EA IV SCH (01:00)
[2019-01-23] MEDS ORDERED: CIPROFLOXACIN 200 MG in APPROPRIATE DILUENT 1 EA IV SCH (01:00)
[2019-01-23 01:05] LABS: HEMATOCRIT 24.4 % (36.0-47.0); HEMOGLOBIN 8.2 g/dl (12.0-15.5); MEAN CORPUSCULAR HEMOGLOBIN 29.6 pg (27.0-33.0); MEAN CORPUSCULAR HGB CONC 33.6 g/dl (32.0-36.5); MEAN CORPUSCULAR VOLUME 88.1 fl (80.0-96.0); RED BLOOD COUNT 2.77 10^6/uL (4.00-5.40)
[2019-01-23 01:08] LABS: PLATELET COUNT, AUTOMATED 9 10^3/uL (150-450); WHITE BLOOD COUNT 0.2 10^3/uL (4.0-10.0)
[2019-01-23] MEDS ORDERED: ONDANSETRON 4MG/2ML VIAL (J2405) IV ONE (03:45)
[2019-01-23] MEDS ORDERED: FUROSEMIDE 40 MG/4 ML VIAL (J1940) IV ONE (03:45)
[2019-01-23] MEDS: metroNIDAZOLE 500 MG in APPROPRIATE DILUENT 1 EA IV SCH ×3 (03:59→18:15)
[2019-01-23] MEDS: MORPHINE 4 MG/ML 1ML VIAL/SYRINGE (J2270) IV PRN ×2 (04:33→10:35)
[2019-01-23 05:10] LABS: MEAN CORPUSCULAR HEMOGLOBIN 30.1 pg (27.0-33.0); MEAN CORPUSCULAR HGB CONC 33.5 g/dl (32.0-36.5); MEAN CORPUSCULAR VOLUME 89.6 fl (80.0-96.0); RED BLOOD COUNT 3.46 10^6/uL (4.00-5.40)
[2019-01-23 05:14] LABS: PLATELET COUNT, AUTOMATED 10 10^3/uL (150-450); WHITE BLOOD COUNT 0.1 10^3/uL (4.0-10.0)
[2019-01-23 05:15] LABS: HEMOGLOBIN 10.4 g/dl (12.0-15.5)
[2019-01-23 05:33] LABS: CALCIUM LEVEL 7.6 MG/DL (8.8-10.2); CREATININE FOR GFR 2.78 MG/DL (0.55-1.30); GLOMERULAR FILTRATION RATE 18.4 (>45); POTASSIUM SERUM 3.5 MEQ/L (3.5-5.1)
[2019-01-23] MEDS ORDERED: MORPHINE 4 MG/ML 1ML VIAL/SYRINGE (J2270) IV ONE (07:45)
[2019-01-23] MEDS ORDERED: NS 1,000 ML IV SCH (08:15)
[2019-01-23] MEDS ORDERED: NOREPINEPHRINE 4 MG/4 ML AMP As Ordered ONE ×2 (08:20→08:21)
[2019-01-23 08:22] LABS: ABG BASE EXCESS -8.7 (-2.0-2.0); ABG O2 SATURATION 96.8 % (95.0-99.0); ABG PARTIAL PRESSURE CO2 30.6 mmHg (35.0-45.0); ABG STANDARD HCO3 17.4 MEQ/L (22.0-26.0); ABG pH (ARTERIAL) 7.337 UNITS (7.350-7.450)
[2019-01-23] MEDS ORDERED: MIDAZOLAM INJ 2 MG/2 ML VIAL (J2250) As Ordered ONE (08:22)
[2019-01-23] MEDS ORDERED: ETOMIDATE INJ 20MG/10ML VIAL As Ordered ONE (08:23)
[2019-01-23] MEDS: NOREPINEPHRINE BITARTRATE 16 MG in D5W 484 ML IV SCH ×2 (08:30→18:14)
[2019-01-23] MEDS ORDERED: PROPOFOL 1,000 MG/100 ML VIAL As Ordered ONE (08:40)
[2019-01-23] MEDS ORDERED: VASOPRESSIN INJ 20 UNITS/ML VIAL As Ordered ONE (08:53)
[2019-01-23] MEDS ORDERED: PANTOPRAZOLE 40MG INJ (PROTONIX) (C9113) IV SCH (09:00)
[2019-01-23] MEDS: VASOPRESSIN INJ 20 UNITS in NS 499 ML IV SCH ×3 (09:00→23:10)
[2019-01-23] MEDS: PANTOPRAZOLE 20 MG TAB PO SCH (09:00)
[2019-01-23] MEDS ORDERED: GABAPENTIN 400 MG CAP PO SCH ×2 (09:00)
[2019-01-23] MEDS ORDERED: ASPIRIN 81 MG ENTERIC TAB PO SCH (09:00)
[2019-01-23] MEDS ORDERED: LORATADINE 10 MG TAB PO SCH (09:00)
[2019-01-23 09:47] LABS: INR 1.34; PROTHROMBIN TIME 16.3 SECONDS (11.8-14.0)
[2019-01-23 09:48] LABS: PARTIAL THROMBOPLASTIN TIME 37.3 SECONDS (25.0-38.4)
[2019-01-23] MEDS ORDERED: VANCOMYCIN HCL 1,000 MG, VIAL MATE ADAPTER 1 EACH in D5W 250 ML IV ONE (10:00)
[2019-01-23 10:23] LABS: ABG BASE EXCESS -8.7 (-2.0-2.0); ABG HCO3 14.6 MEQ/L (22.0-26.0); ABG PARTIAL PRESSURE CO2 25.5 mmHg (35.0-45.0); ABG TOTAL CO2 15.4 MEQ/L (23.0-31.0); ABG pH (ARTERIAL) 7.375 UNITS (7.350-7.450)
[2019-01-23] MEDS ORDERED: ETOMIDATE INJ 20MG/10ML VIAL IV STA (11:08)
[2019-01-23] MEDS ORDERED: MIDAZOLAM INJ 2 MG/2 ML VIAL (J2250) IV STA (11:08)
[2019-01-23] MEDS: PROPOFOL 1,000 MG in APPROPRIATE DILUENT 1 EA IV SCH ×2 (11:09→21:55)
--- NOTE | 2019-01-23 11:35 | PHACANCOPD ---
PHARMACY VANCOMYCIN DOSING Pt Demographics Demographics Patient Age:63 , Weight:96.900 , Gender: female Adjusted Body Weight Date: 01/23/19, Adjusted Body Weight: Kg Events Past 24 Hours Events Past 24 Hours: YES: Change in CrCl; NO: Dialysis, Diuretic Therapy, Fever, Elevation in WBC, Pending Diagnostics, Pending Procedures, Other Vancomycin Vancomycin indication: neutropenic Vancomycin Target Ranges: 15-20 mcg/ml Vancomycin Load Y/N: Yes Load Dose Date Time Vancomycin Load Dose: 1000mg Date: 01/23 Time: ~1130 Vancomycin Dose Date: 01/23/19. Current Vancomycin Dose: [1g IV q24h @16] Intermittent Dosing?: No Labs Labs Item Value Date Time White Blood Count 0.2 10^3/uL *L 01/23/19 0059 White Blood Count 0.1 10^3/uL *L 01/23/19 0458 Creatinine 2.73 MG/DL H 01/22/19 1130 Creatinine 2.78 MG/DL H 01/23/19 0458 Micro Microbiology 01/22/19 Blood Culture - Preliminary, Resulted 01/22/19 Blood Culture, Received Pending Creatinine Clearance Date:01/23/19. Creatinine Clearance: [~23 ml/min using adjusted BW]. Assessment and Plan Maintaining Current Dose?: Yes Reason for dose change: No Dose Change Pharmacist Note Pharmacist Note Date: 01/23/19. Pharmacist note: pt has been changed from cipro which was started yesterday to Cefepime/Vancomycin today for neutropenic coverage. Flagyl was also started yesterday which is continuing. She has not been on vancomycin at our facility in the past. Pt is currently on active chemo. I have started the pt on vancomycin 1g this morning, followed by 1g IV q24h to begin @~16:00. I have a trough ordered for tomorrow afternoon d/t increased SCr (baseline ~1.2 mg/dl). Blood cultures 1/2 preliminary positive for gram neg rods. We will continue to monitor and make adjustments as necessary. Ulysses Amaya Pharm.D. Jan 23, 2019 11:35
[2019-01-23] MEDS: CHLORHEXIDINE GLUCONATE 0.12 % 15ML UDC (PERIDEX ORAL RINSE) MT SCH ×2 (11:58→20:12)
[2019-01-23] MEDS ORDERED: GLUCOSE 4 GM CHEW TABLET PO PRN (12:15)
[2019-01-23] MEDS ORDERED: GLUCAGON FOR INJ 1 MG VIAL (J1610) SC PRN (12:15)
[2019-01-23] MEDS ORDERED: DEXTROSE 50% 50 ML SYRINGE IV PRN (12:15)
[2019-01-23] MEDS: CEFEPIME HCL 2 GM in D5W MINI-BAG PLUS 50 ML IV SCH ×2 (13:26→23:10)
[2019-01-23 14:57] LABS: ALBUMIN 2.2 GM/DL (3.2-5.2); BILIRUBIN,DIRECT 1.4 MG/DL (0.0-0.2); BILIRUBIN,TOTAL 1.6 MG/DL (0.2-1.0); MAGNESIUM LEVEL 1.5 MG/DL (1.8-2.4); PHOSPHORUS LEVEL 6.3 MG/DL (2.5-4.9); TOTAL PROTEIN 5.1 GM/DL (6.4-8.2)
[2019-01-23] MEDS ORDERED: NS 500 ML IV ONE ×2 (15:00→15:30)
[2019-01-23] MEDS ORDERED: VANCOMYCIN HCL 1,000 MG, VIAL MATE ADAPTER 1 EACH in D5W 250 ML IV SCH (16:00)
[2019-01-23] MEDS ORDERED: MAG SULF 1GM/100ML (MAG RUN) 1 GM in APPROPRIATE DILUENT 1 EA IV ONE (16:00)
[2019-01-23] MEDS ORDERED: LIDOCAINE 2% JELLY 30 ML ONE (16:11)
[2019-01-23] MEDS ORDERED: NS 1,000 ML IV ONE (17:15)
--- NOTE | 2019-01-23 19:54 | IPNPDOC ---
Subjective Date Seen The patient was seen on 01/23/19. Subjective Chief Complaint/HPI f/u pancytopenia and now GNR septic shock Events since last encounter Pt seen and examined at bedside. Called to beside this AM due to pt not looking well. Pt found to be with labored breathing, abdominal pain, weak appearing, listless and in moderate distress. Pt transferred to the ICU where ABG drawn but given pt's tired appearance and concern for impending respiratory compromise decision made to electively intubate pt. Son at bedside and HCP (Pamela) called and discussed decision with her as well. Pt alert and oriented at time decision to intubate was made but due to concern for lack of full understanding HCP con tacted as well. Everyone in agreement that intubation was the appropriate path. Pt successfully intubated, central line placed and pt placed on pressors first levo and then vaso for ongoing blood pressure support which pt continues to require. Pt had blood culture come back post for GNRs. Abx transitioned to Vanc, cefepime, flagyl. Family and HCP kept abreast of current findings and pt's level of support needed. Prior to intubation pt endorsed feeling tired and having some difficulty breathing. unable to obtain rest of ROS due to pt's respiratory status. General: Reports: ROS Unobtainable Objective Physical Examination General Exam: Positive: Moderate Distress (respiratory), Other (lethargic ) Chest Exam: Positive: Other (upper airway transmitted sounds) Heart Exam: Positive: Tachycardic, Regular Rhythm Abdomen Exam: Positive: BS Hypoactive, Tenderness, Other (distended) Extremity Exam: Positive: Normal pulses; Negative: Edema Skin Exam: Negative: Rash, Breakdown Neuro Exam: Positive: Other (lethargic ) Psych Exam: Positive: Oriented x 3 Assessment /Plan Assessment 63 y/o with GNR bacteremia and pancytopenia Plan/VTE VTE Prophylaxis Ordered?: Yes VTE Exclusion Mechanical Proph: N/A:VTE Prophy Ordered VTE Exclusion Pharmacological: Thrombocytopenia Plan 1. GNR bacteremia with septic shock -cont. cefepime, vanc and flagyl -will stop Vanc if MRSA swab neg -f/u blood cultures: +GNRs -pt intubated and sedated -trend WBC count -trend fever curve -cont. fluid bolus as needed -cont. levo and vaso -Had long discussion with family about how sick pt is, family understands -pt now DNR, MOSLT in chart 1. Pancytopenia in the setting of chemotherapy -s/p 2U PRBCs -s/p 4U plts -s/p Neupogen -Trend CBC for WBC, hgb and plts -heme/once consult 2. ANN -Cr 2.78 from 1.28 on 01/10/19 -trend BMP for Cr 3. DMII -FSG q6hr 4. COPD -duonebs q4hr PRN SOB/Wheezing -cont. to monitor resp status -s/p intubation and sedation 5. HTN -trend BP -hypotensive currently requiring levo and vaso for BP support 6. HLD -cont. home meds DVT PPX: SCDs given low plts Critical care time spent: 60min Disposition pending clinical course VS[facility]O Vital Signs Date Time Temp Pulse Resp B/P (MAP) Pulse Ox O2 Delivery O2 Flow Rate FiO2 01/23/19 18:45 110 88/54 (65) 95 50 01/23/19 18:14 26 01/23/19 16:00 99.2 01/23/19 08:11 3.0 01/22/19 11:54 Nasal Cannula I&O- Last 24 Hours up to 6 AM 01/23/19 06:00 Intake Total 1054 ml Output Total 750 ml Balance 304 ml Laboratory Data 24H LABS Laboratory Tests 2 01/22/19 22:30: Bedside Glucose (Misc Panel) 124H 01/23/19 00:59: Nucleated Red Blood Cells % (auto) 0.0 01/23/19 04:58: Nucleated Red Blood Cells % (auto) 0.0, Anion Gap 12, Glomerular Filtration Rate 18.4L, Blood Urea Nitrogen 40H, Creatinine 2.78H, Sodium Level 137, Potassium Level 3.5, Chloride Level 108H, Carbon Dioxide Level 17L, Calcium Level 7.6L 01/23/19 07:35: Bedside Glucose (Misc Panel) 75L 01/23/19 08:16: Blood Gas Bicarbonate Standard 17.4L, Arterial Blood pH 7.337L, Arterial Blood Partial Pressure CO2 30.6L, Arterial Blood Partial Pressure O2 93.0, Arterial Blood Total CO2 17.0L, Arterial Blood HCO3 16.0L, Arterial Blood Base Excess - 8.7L, Arterial Blood Oxygen Saturation 96.8 01/23/19 09:19: Prothrombin Time 16.3H, Prothromb Time International Ratio 1.34, Activated Partial Thromboplast Time 37.3, Fibrinogen 797H, Lactic Acid Level 3.1*H, Methicillin-Resist S.aureus DNA PCR NOT DETECTED 01/23/19 10:00: Blood Gas Bicarbonate Standard , Arterial Blood pH 7.375, Arterial Blood Partial Pressure CO2 25.5L, Arterial Blood Partial Pressure O2 , Arterial Blood Total CO2 15.4L, Arterial Blood HCO3 14.6L, Arterial Blood Base Excess -8.7L, Arterial Blood Oxygen Saturation 01/23/19 12:17: Bedside Glucose (Misc Panel) 166H 01/23/19 14:05: Lactic Acid Followup at 4 Hours 3.3*H 01/23/19 14:06: Phosphorus Level 6.3H, Magnesium Level 1.5L, Aspartate Amino Transf (AST/SGOT) 40H, Alanine Aminotransferase (ALT/SGPT) 46, Alkaline Phosphatase 130H, Total Bilirubin 1.6H, Direct Bilirubin 1.4H, Total Protein 5.1L, Albumin 2.2L, Albumin/Globulin Ratio 0.76L CBC/BMP Laboratory Tests 01/23/19 00:59 Red Blood Count 2.77 L, Mean Corpuscular Volume 88.1, Mean Corpuscular Hemoglobin 29.6, Mean Corpuscular Hemoglobin Concent 33.6, Red Cell Distribution Width 15.5 H 01/23/19 04:58 Red Blood Count 3.46 L, Mean Corpuscular Volume 89.6, Mean Corpuscular Hemoglobin 30.1, Mean Corpuscular Hemoglobin Concent 33.5, Red Cell Distribution Width 15.2 H, Calcium Level 7.6 L Microbiology Microbiology 01/22/19 Blood Culture - Preliminary, Resulted 01/22/19 Blood Culture - Preliminary, Resulted No growth after 24 hours . All specim... DELBERT WAY MD Jan 23, 2019 19:54
[2019-01-23] MEDS: MONTELUKAST 10 MG TAB PO SCH (20:12)
--- NOTE | 2019-01-23 21:11 | ECGEPIP ---
[facility] - ED Test Date: 2019-01-22 Pat Name: DARRELL ALVA Department: Room: - Gender: Female [employer] T[employer]: : 1955 Requested By: Mehdi Huston Order Number: [id number] Reading MD: Joceline Solomon Measurements Intervals [place] Rate: 107 P: 68 OR: 133 QRS: 15 QRSD: 86 T: 49 QT: 319 QTc: 426 Interpretive Statements SINUS TACHYCARDIA PRWP LOW QRS VOLTAGE IN PRECORDIAL LEADS ABNORMAL RHYTHM ECG INCREASED RATE 12/29/17 Electronically Signed on 01-23-2019 21:11:30 EDT by Joceline Solomon
[2019-01-23] MEDS: fentaNYL 100 MCG/2 ML INJECTION (J3010) IV PRN (22:45)
[2019-01-23] MEDS: ACETAMINOPHEN 325 MG/10.15 ML UDC GT PRN (23:39)
[2019-01-24] VITALS (17 sets, daily range): BP systolic 74–137; BP diastolic 39–63; O2SAT 93–99
[2019-01-24] MEDS: metroNIDAZOLE 500 MG in APPROPRIATE DILUENT 1 EA IV SCH (01:22)
[2019-01-24] MEDS: NOREPINEPHRINE BITARTRATE 16 MG in D5W 484 ML IV SCH (01:59)
[2019-01-24] MEDS: PROPOFOL 1,000 MG in APPROPRIATE DILUENT 1 EA IV SCH (03:21)
[2019-01-24] MEDS: fentaNYL 100 MCG/2 ML INJECTION (J3010) IV PRN (05:00)
[2019-01-24 05:09] LABS: HEMATOCRIT 29.6 % (36.0-47.0); MEAN CORPUSCULAR HEMOGLOBIN 29.9 pg (27.0-33.0); MEAN CORPUSCULAR HGB CONC 33.8 g/dl (32.0-36.5); MEAN CORPUSCULAR VOLUME 88.4 fl (80.0-96.0); RED BLOOD COUNT 3.35 10^6/uL (4.00-5.40)
[2019-01-24 05:11] LABS: PLATELET COUNT, AUTOMATED 15 10^3/uL (150-450); WHITE BLOOD COUNT 0.8 10^3/uL (4.0-10.0)
[2019-01-24 05:35] LABS: BILIRUBIN,TOTAL 2.2 MG/DL (0.2-1.0); CREATININE FOR GFR 3.31 MG/DL (0.55-1.30); MAGNESIUM LEVEL 1.6 MG/DL (1.8-2.4); PHOSPHORUS LEVEL 5.9 MG/DL (2.5-4.9); POTASSIUM SERUM 5.7 MEQ/L (3.5-5.1); TOTAL PROTEIN 5.7 GM/DL (6.4-8.2)
[2019-01-24 05:44] LABS: ABG BASE EXCESS -12.7 (-2.0-2.0); ABG O2 SATURATION 93.9 % (95.0-99.0); ABG PARTIAL PRESSURE CO2 24.7 mmHg (35.0-45.0); ABG PARTIAL PRESSURE O2 76.1 mmHg (75.0-100.0); ABG STANDARD HCO3 14.4 MEQ/L (22.0-26.0); ABG TOTAL CO2 12.8 MEQ/L (23.0-31.0); ABG pH (ARTERIAL) 7.305 UNITS (7.350-7.450)
[2019-01-24] MEDS: VASOPRESSIN INJ 20 UNITS in NS 499 ML IV SCH (06:27)
[2019-01-24] MEDS: ACETAMINOPHEN 325 MG/10.15 ML UDC GT PRN (07:26)
--- NOTE | 2019-01-24 07:51 | REP ---
Portable chest, 04:40 a.m., single AP view with the patient semi upright: Comparison is 01/22/2019. There is an incomplete inspiratory effort with under aeration of the lung bases. This is unchanged. Cardiac size is upper normal, unchanged. There is a right IJ [id number] with the tip at the confluence of the superior vena cava and right atrium in satisfactory position, unchanged. Impression: There is no interval change. Electronically Signed by Denny Abraham MD 01/23/2019 07:32 A
--- NOTE | 2019-01-24 07:52 | RO ---
DATE OF PROCEDURE: 01/23/2019 INDICATION: Vasopressor administration. PREPROCEDURE DIAGNOSIS: Septic shock. POSTPROCEDURE DIAGNOSIS: Septic shock. ATTENDING PHYSICIAN: Dr. Holland CONSENT: Verbal consent was obtained from the patient prior to the procedure. The procedure was performed emergently. Indication, risks and benefits were explained at length. PROCEDURE SUMMARY: A central line insertion practice form was completed by independent observer. A time out was performed. My hands were washed immediately prior to the procedure. Full sterile technique was maintained throughout the procedure including surgical cap, mask, protective eye wear, full gown, and sterile gloves. The patient was placed in Trendelenburg position. The right neck region was prepped using chlorhexidine scrub and draped in sterile fashion using a fenestrated drape and a sterile probe cover was employed. The right internal jugular vein was identified using ultrasound. Using real time out of plane guidance the introducer needle was inserted into the right internal jugular vein under direct ultrasound visualization. Venous blood was drawn. The syringe was removed and a guidewire was advanced into the introducer needle. The introducer needle was removed over the guidewire. A small incision was made at the skin surface with a scalpel and a dilator was exchanged over the guidewire. After appropriate dilation was obtained the dilator was exchanged over the wire for a triple lumen central venous catheter. The wire was removed and the catheter was sutured in place at 17 cm. A sterile chlorhexidine impregnated dressing was placed over the catheter at the insertion site. The patient tolerated the procedure without any hemodynamic compromise. At time of procedure completion all ports aspirated and flushed properly. Postprocedure chest x-ray shows the central line in place with the tip in superior vena cava (SVC). There is no pneumothorax.
--- NOTE | 2019-01-24 07:52 | REP ---
Abdomen two views with the patient supine and upright: Comparison is the portable chest from 04:40 a.m. earlier this same date. There is a nasogastric tube as an interval change with the tip in the abdominal left upper quadrant. There are dilated bowel loops over the mid abdomen in a nonspecific pattern. There is no colonic distension. The no free subdiaphragmatic air is identified. Impression: Nonspecific bowel gas pattern. Nasogastric tube as described. Electronically Signed by Denny Abraham MD 01/23/2019 09:46 A
--- NOTE | 2019-01-24 07:52 | CR ---
DATE OF CONSULTATION: 01/23/2019 HISTORY OF PRESENT ILLNESS: Ms. 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 The patient is status post right middle lobectomy as well as a course of a carboplatin and etoposide chemotherapy. The patient was seen in followup by her oncologist in December and a repeat PET/CT had shown some new hypermetabolic lymph nodes suspicious for metastatic disease as well as some hypermetabolic uptake in the right adrenal lesions as well. Therefore she was started on a second course of chemotherapy with topotecan and Neupogen for support. The patient also has a history of diabetes, hypertension, hyperlipidemia and chronic obstructive pulmonary artery disease (COPD). She initially presented with worsening leg pain after getting her chemotherapy about a week ago. She also complained of diarrhea and feeling unwell but denied any fevers or chills, did not have abdominal pain on admission. Denied any chest pains or shortness of breath. On admission the patient was noted to be pancytopenic. She was given Neupogen on admission as well as 2 units of platelets and 2 units of packed red blood cells (PRBCs). She was also noted to acute on chronic renal failure and was given IV fluids. Overnight the patient was noted to have worsening abdominal pain and distension. The patient had a CT abdomen and pelvis done yesterday evening which showed colitis and possible appendicitis. Surgery was consulted and was thought that the changes in the appendix were likely reactive from an acute colitis in the right colon. She was started on antibiotics yesterday evening with Flagyl and ciprofloxacin as well as morphine for pain. Early this morning the patient was noted to have increasing abdominal distension. She was also noted to be more tachypneic as well as lethargic and hypotensive. The patient was brought to the intensive care unit (ICU) for further management. In the ICU she was noted to have very shallow rapid breathing. She was hypotensive, was getting 1 liter normal saline bolus but continued to be hypotensive and tachycardic. On exam in the ICU she was complaining of abdominal pain. Denied any chest pain or coughing, had no wheezing. She did have some shortness of breath. She denied any nausea or vomiting. Discussion with the patient about goals of care revealed that the patient wanted to be full code. Her healthcare proxy is her friend Pamela who was also called and confirmed that she wanted to be intubated if needed and resuscitated. Therefore given her hypotension likely secondary to septic shock in the setting of severe neutropenia she was started on Levophed for blood pressure support. The patient was also intubated for her acute respiratory failure in the setting of her septic shock. PAST MEDICAL / SURGICAL HISTORY: 1. Poorly differentiated neuroendocrine carcinoma status post right middle lobectomy and chemotherapy, on a second line of chemotherapy currently. 2. Diabetes. 3. Hypertension. 4. Hyperlipidemia. 5. COPD. 6. Cataract surgery. 7. Chemo port placement. HOME MEDICATIONS: - aspirin - atorvastatin - calcium - Invokana - chlorthalidone - Breo - gabapentin - insulin glargine - lisinopril - loratadine - meloxicam - metformin - Singulair - pantoprazole - albuterol as needed - cyclobenzaprine - Lomotil - Zofran - prochlorperazine ALLERGIES: AMOXICILLIN and CLAVULANIC ACID. SOCIAL HISTORY: The patient is a current active smoker, had been up to two packs a day for 50 years, is currently trying to quit. Lives alone. FAMILY HISTORY: Positive for diabetes and hypertension. PHYSICAL EXAM: Temperature 97.4, heart rate 124, respirations 37, blood pressure 94/55, O2 sat 88% on 3 liters nasal cannula. General: The patient is a pale female, is lying in the stretcher, lethargic, with some respiratory distress. HEENT: Normocephalic, atraumatic. Pupils are equal and reactive to light bilaterally. Mucous membranes are dry. Neck is supple. Trachea is midline. There is no palpable adenopathy. Cardiovascular is tachycardic with regular rate and rhythm. Distant heart sounds. No murmurs appreciated. Pulmonary: Decreased breath sounds bilaterally with a few crackles and faint wheezing at the bases. Abdomen is obese and mildly distended and tender to palpation in the right lower quadrant and epigastric region. Extremities: No lower extremity edema noted bilaterally. LABORATORY DATA: WBC 0.1, hemoglobin 10.4, platelets 10. Chemistry - sodium is 137, potassium 3.5, chloride 108, bicarb 17, BUN 40, creatinine 2.78, glucose 71, lactic acid 3.1, coag INR 1.34, fibrinogen 797, ABG pH 7.337, pCO2 of 30.6, pO2 of 93. Preliminary blood culture gram negative rods. IMAGING: CT abdomen and pelvis showed bibasilar atelectatic atelectasis in the lungs. There was fatty infiltration of the liver and some mild lobular contour indicating early cirrhosis possibly. There is diffuse pancreatic atrophy. There is moderate splenomegaly. There is a mildly heterogeneous hypodense mass in the right adrenal gland again seen. There is findings of acute colitis in the right colon and the appendix is distended measuring 1.1 cm with some focal wall thickening but no significant periappendiceal inflammation surrounding. Chest x-ray earlier this morning showed poor inspiratory effort and mild pulmonary congestion with low lung volumes and atelectasis in the bases bilaterally. There is a right chemo port in place. ASSESSMENT AND PLAN: Ms. Jeong is a 63-year-old female with a past medical history of poorly differentiated neuroendocrine lung cancer status post lobectomy and is on her second line of chemotherapy currently. She has a history of hypertension, diabetes, hyperlipidemia and chronic obstructive pulmonary artery disease (COPD). She presented initially with leg pain and was found to be pancytopenic and given Neupogen 2 units or packed red blood cells (PRBCs) and 2 units of platelets. Overnight patient started complaining of increasing abdominal distension and abdominal pain. Her CT abdomen and pelvis showed findings suggestive of right colitis and possible appendicitis. Surgery was consulted and was felt that the dilation of the appendix was due to the inflammation and edema related to her colitis. The patient was also hypotensive likely with septic shock in the setting of her severe neutropenia secondary to a colitis. She was also noted to have worsening tachypnea and respiratory distress and was intubated for her acute respiratory failure. Neuro: Patient is intubated and is sedated now. - Continue with propofol for sedation to target a Hiral scale of 2 to 3. Would continue with daily sedation vacations while intubated. - Continue with fentanyl as needed for pain control. - Would discontinue gabapentin. Cardiovascular: The patient was hypotensive likely with septic shock secondary to a colitis. She was started on Levophed for vasopressor support. The patient had placement of a right internal jugular (IJ) triple lumen for administration of vasopressors. - Continue with Levophed, vasopressin was added for additional pressor support to maintain a MAP above 65. - The patient had lactic acidosis in the setting of her septic shock. She was given an additional 1 liter normal saline bolus after completing the first liter of IV fluids. - On bedside ultrasound her IJ appeared distended and CXR showed some increased interstitial markings. Therefore would hold off on further IV fluids at this time and continue with Levophed and vasopressin. - will continue to trend lactate. - would discontinue (DC) aspirin given her thrombocytopenia and will hold her Lipitor. Pulmonary: The patient was intubated for acute respiratory failure in the setting of septic shock. The patient's chest x-ray showed evidence of some mild pulmonary vascular congestion as well as atelectasis in the bases bilaterally. Some of her respiratory distress is also likely due to her increasing abdominal distension. - Continue with mechanical ventilation with pressure regulated volume control (PRVC) with the settings of 400/14/80% and 8. - Will continue to wean down her FIO2 as tolerated and continue with daily ABGs and daily chest x-rays while intubated. - Continue with DuoNebs for her history of chronic obstructive pulmonary artery disease (COPD). There is no focal opacities on her in on her chest imaging to suggest pneumonia. ID: Severe neutropenia with septic shock, likely secondary to colitis given findings on her CT. - Would discontinue ciprofloxacin and broaden her antibiotics to cefepime given her neutropenia. The patient was also given one dose of that vancomycin early this morning and was continued on Flagyl for possible C. difficile given her history of diarrhea. - The patient's blood cultures preliminary were positive for gram negative rods. We will followup if patient has diarrhea and we will send a C. difficile and we will followup with the final results of her cultures. - Continue with Neupogen for her neutropenia and continue with neutropenic precautions. GI: The patient was noted to have increasing abdominal pain and distension. An abdominal x-ray was performed to evaluate for free air under the diaphragm as there is some concern for a possible perforation. We will followup the results of the abdominal x-ray. - Surgery has been consulted. We will continue with the serial abdominal examinations and will place OG tube for decompression. - Continue with GI prophylaxis while intubated. Heme: Pancytopenia likely secondary to chemotherapy. The patient is status post 2 units of PRBC with appropriate response. The patient was also given 2 units of platelets but did not have appropriate response her platelet count. - The patient is being transfused another unit of platelets. - coags were checked, did not have any significant coagulopathy. Fibrinogen was also checked to evaluate for DIC and it was elevated. We will continue to monitor. - Discontinued aspirin and a continue with sequential compression devices (SCDs) for deep venous thrombosis (DVT) prophylaxis. Endo/renal: The patient has acute kidney injury (ANN) on chronic kidney disease (CKD). - We will place a Mallory to monitor her ins and outs and continue to monitor her renal function and renally dose medications. - We will monitor electrolytes and replete as needed. We will also check her liver function test. - The patient is nothing by mouth. We will need to check fingerstick glucoses every 4 hours and if hypoglycemic we will give her D5W. Deep venous thrombosis (DVT) prophylaxis sequential compression devices (SCDs). Full code. Total critical care time spent not including any procedures approximately 2 hours. MTDD
--- NOTE | 2019-01-24 07:52 | RO ---
DATE OF PROCEDURE: 01/23/2019 INDICATION: Acute respiratory failure. PREPROCEDURE DIAGNOSIS: Septic shock. POSTPROCEDURE DIAGNOSIS: Septic shock. ATTENDING PHYSICIAN: Dr. Holland CONSENT: Obtained verbally from the patient prior to the procedure. Indication, risk and benefits were explained at length. The patient's healthcare proxy was also notified prior to intubation procedure. DESCRIPTION OF PROCEDURE: A time-out was performed. The patient was placed on cardiac cath lab manager, including continuous pulse oximetry. Rapid sequence intubation was conducted with 20 mg of etomidate for induction. There is no paralytic given her acute renal failure. Using a MAC size 3 blade and a size 7.5 endotracheal tube with stylet, the patient was intubation on the first pass attempt. The stylet was removed and the cuff balloon was inflated. Appropriate endotracheal tube position was confirmed by direct visualization of vocal cord passage, fogging of the tube, CO2 corometric indicator and symmetric breath sounds. The tube was secured at 23 cm at the lips. Post intubation chest x-ray shows the endotracheal tube in position approximately 1 cm above the lise. ET tube was withdrawn 1.0 cm. ELISAD
--- NOTE | 2019-01-24 07:52 | REP ---
Portable chest, 09:17 a.m., single AP view with the patient semi upright: Comparison is from 04:40 a.m. earlier today. There is again complete inspiratory effort with under aeration of the lung lovelace. There has been interim placement of endotracheal tube with the tip at the lise but not selectively within the left main stem bronchi. There has been interval placement of a nasogastric tube with the tip in the abdominal left upper quadrant. There is no free subdiaphragmatic air. Cardiac size is upper normal, unchanged. The alejandra, mediastinum, skeletal structures are unchanged. Impression: There is no free subdiaphragmatic air. Interval placement of endotracheal tube and nasogastric tube as described. There is a right IJ [id number], unchanged. Electronically Signed by Denny Abraham MD 01/23/2019 09:51 A
[2019-01-24] MEDS ORDERED: AMIODARONE HCL 150 MG/100 ML PREMIXED BAG (NEXTERONE) As Ordered ONE (07:55)
[2019-01-24] MEDS ORDERED: MAG SULF 1GM/100ML (MAG RUN) 1 GM in APPROPRIATE DILUENT 1 EA IV ONE ×2 (08:00→09:30)
[2019-01-24] MEDS ORDERED: CALCIUM GLUCONATE 1,000 MG in D5W MINI-BAG PLUS 100 ML IV ONE (08:30)
--- NOTE | 2019-01-24 08:45 | CCN ---
DATE OF SERVICE: 01/24/2019 Critical care time was one hour and this excludes all procedures. I was urgently called to the patient's bedside this morning for hyperthermia with a temperature of 108.2. The patient was tachycardiac and quickly went into in atrial fibrillation with rapid ventricular rate. She also had a short burst of ventricular tachycardia monomorphic. I had ordered amiodarone however the ventricular tachycardia had stopped by the time the amiodarone was brought to the bedside. The patient remains mottled on two pressors. She appears to be having agonal breathing on the ventilator. The patient was made DNR yesterday. Continues to be pancytopenic and renal failure this morning with gram-negative rods growing in blood cultures. PHYSICAL EXAMINATION: Temperature 108.2, was 98.5 this morning at 04:00 a.m. pulse ranging 112-210, respiratory rate at 28, blood pressure is 111/56 with a mean arterial pressure of 74, pulse oximetry is 91% now FiO2 of 1.0. General: The patient is not responding to any commands. However is on propofol. Propofol was decreased while I was in the room due to hypotension. HEENT: Sclera are clear. Pupils are 4 mm and nonreactive. Mucous membranes are moist. Tongue is midline with few excoriations on the tip of the tongue. Endotracheal tube is in place. Neck is supple. No tracheal deviation or mass. Central line is placed without surrounding erythema or exudate. Jrgllm-D-Vvhi is present. Again no surrounding erythema or exudate. Cardiac: Tachycardiac S1-S2 irregularly irregular without murmur, rub or gallop. PMI is difficult to palpate due to body habitus. There is no significant pitting edema currently. Pulmonary: Fairly clear to auscultation without rales, rhonchi or wheezes. No accessory muscle use. Abdomen is obese, soft and nontender. She is using accessory abdominal muscles for breathing. There is no mass or hernia. No hepatosplenomegaly. Extremities: There is significant mottling of the extremities. There is no cyanosis or clubbing. Laboratory evaluation shows a sodium 133, potassium 5.7, chloride 105, bicarb of 15, BUN of 50, creatinine of 3.31 and a glucose of 201, calcium is low at 6.0, phosphorous is mildly elevated at 5.9 with magnesium 1.6, lactic acid of 3. Hemoglobin is 10.0, hematocrit of 29.6, platelet count of 15 and white blood cell count of 0.2. As mentioned above, cultures grew gram-negative rods yesterday. Chest x-ray shows that the endotracheal tube is too deep. There is a central line and Joryli-Y-Pgjg in place.No significant infiltrate. There is volume loss. IMPRESSION: Septic shock with severe metabolic acidosis, respiratory failure, renal failure, hyperglycemia, anemia, thrombocytopenia, hyperthermia, now with new onset atrial fibrillation with rapid ventricular rate secondary to severity of illness. 1. Septic shock on cefepime and Flagyl, still has vancomycin on board. Will repeat blood cultures due to recent spike and obtain blood cultures from the [id number]-A-Opdx. Currently on Levophed. I am increasing the max dose. Overall poor prognosis given the amount of vasopressor therapy that is required. 2. Hyperkalemia, now having some arrhythmias. I have given calcium however, the patient is at risk for sudden cardiac and at this point in time is DNR. 3. Hyponatremia. 4. Acute renal failure. 5. Lactic acidosis. 6. New onset atrial fibrillation with rapid ventricular rate with a span of ventricular tachycardia. Will add amiodarone if heart rate remains uncontrolled or the patient has recurrent ventricular tachycardia. I have added magnesium this morning. 7. Hyperglycemia. Will place on sliding scale. 8. Pancytopenia. No significant recovery. At this point in time, no indication for transfusion, but will continue to monitor for signs of bleeding. 9. GI prophylaxis with Protonix. 10. DVT prophylaxis with Thromboembolic deterrent stockings (TEDS) and Dawson's. Overall poor prognosis. Will have bedside discussion with family. GUSTAVO
[2019-01-24] MEDS ORDERED: MORPHINE 4 MG/ML 1ML VIAL/SYRINGE (J2270) As Ordered ONE (08:46)
--- NOTE | 2019-01-24 08:53 | CCN ---
DATE: 01/24/2019 The patient continued to have episodes of ventricular tachyardia. Amiodarone was ordered. The patient's family had decided to make her comfort measures only, stating she would not want to go through this. They had multiple discussions overnight between themselves and felt that she would want to be made comfort only, especially in the face of her malignancy. Therefore, will perform terminal extubation when off sedation and then provide her with comfort in the form of narcotics and benzodiazepines as necessary.
[2019-01-24] MEDS ORDERED: MORPHINE 4 MG/ML 1ML VIAL/SYRINGE (J2270) IV ONE (09:00)
[2019-01-24] MEDS ORDERED: PANTOPRAZOLE 40MG INJ (PROTONIX) (C9113) IV SCH ×2 (09:00)
--- NOTE | 2019-01-24 09:11 | DS.PDOC ---
Discharge Summary General Date of Admission Jan 22, 2019 at 14:04 Date of Discharge 01/24/19 Attending Physician: DELBERT WAY MD Discharge Summary PROCEDURES PERFORMED DURING STAY: None. ADMITTING DIAGNOSES: 1. GNR bacteremia 2. pancytopenia 3. Small cell lung CA currently undergoing chemo 4. DMII 5. HTN 6. HLD 7. COPD DISCHARGE DIAGNOSES: 1. GNR bacteremia 2. pancytopenia 3. Small cell lung CA currently undergoing chemo 4. DMII 5. HTN 6. HLD 7. COPD COMPLICATIONS/CHIEF COMPLAINT: Pancytopenia. HISTORY OF PRESENT ILLNESS: As per admission H&P: "Pt is a 63y/o with hx of small cell lung CA currently undergoing chemo, DMII, HTN, HLD and COPD who presents for b/l leg pain. PT was in her USOH until 6 days prior to admission when, after getting her chemo shot, she noted new onset LE pain which progressively worsened. Pt also noted new diarrhea and general unwell feeling since getting her chemo. Pt denies other symptoms of fever, chills, CP, SOB, ab pain, leg swelling. Pt endorses N/V. Pt called her oncologist who wrote her for a script for lomotil. Pt presented to the ED due to the pain being uncontrollable at home. In the ED pt found to be pancytopenic to WBC 0.2, hgb 7.6, plts of 6. Pt also found to have marginal BP" HOSPITAL COURSE: Pt initially transfused 2U PRBCs and 2U Platelets. Overnight pt complained of RUQ abdominal pain with CT ab pelvis showing ileus and enlarged appendix. Surgery consulted appendix thought to be stable from prior therefore no surgical intervention. Pt clinically looked worse with labored breathing. Pt moved to ICU, antibiotics broadened to cefepime, vanc and flagyl. Blood cultures grew out GNRs. Due to labored breathing pt electively intubated given concern for impending respiratory compromise. Pt also with soft BPs requiring max pressors vaso and levo. Overnight pt developed high fever to 108 with episodes of Vtach. Decision made with family and HCP to transition pt to comfort care. Pt extubated to NC and family at bedside. Pt pronounced at 8:50am with family at bedside. DISCHARGE MEDICATIONS: Please see below. ALLERGIES: Please see below. PHYSICAL EXAMINATION ON DISCHARGE: VITAL SIGNS: Please see below. GENERAL: Laying in bed, no spontaneous movements present HEENT: pupils fixed and dilated CARDIOVASCULAR EXAMINATION: no heart sounds appreciated RESPIRATORY EXAMINATION: no breath sounds EXTREMITIES: no carotid pulses or distal pulses NEUROLOGICAL EXAMINATION: no response to verbal or tactile stimuli TIME SPENT ON DISCHARGE: 40 minutes. Vital Signs/I&Os Vital Signs Date Time Temp Pulse Resp B/P (MAP) Pulse Ox O2 Delivery O2 Flow Rate FiO2 01/24/19 08:30 108.3 117 30 137/57 (83) 90 100 01/24/19 04:24 Ventilator 01/23/19 08:11 3.0 I&O- Last 24 Hours up to 6 AM 01/24/19 06:00 Intake Total 4797 ml Output Total 1750 ml Balance 3047 ml Laboratory Data Labs 24H Laboratory Tests 2 01/23/19 09:19: Prothrombin Time 16.3H, Prothromb Time International Ratio 1.34, Activated Partial Thromboplast Time 37.3, Fibrinogen 797H, Lactic Acid Level 3.1*H, Methicillin-Resist S.aureus DNA PCR NOT DETECTED 01/23/19 10:00: Blood Gas Bicarbonate Standard , Arterial Blood pH 7.375, Arterial Blood Partial Pressure CO2 25.5L, Arterial Blood Partial Pressure O2 , Arterial Blood Total CO2 15.4L, Arterial Blood HCO3 14.6L, Arterial Blood Base Excess -8.7L, Arterial Blood Oxygen Saturation 01/23/19 12:17: Bedside Glucose (Misc Panel) 166H 01/23/19 14:05: Lactic Acid Followup at 4 Hours 3.3*H 01/23/19 14:06: Phosphorus Level 6.3H, Magnesium Level 1.5L, Aspartate Amino Transf (AST/SGOT) 40H, Alanine Aminotransferase (ALT/SGPT) 46, Alkaline Phosphatase 130H, Total Bilirubin 1.6H, Direct Bilirubin 1.4H, Total Protein 5.1L, Albumin 2.2L, Albumin/Globulin Ratio 0.76L 01/23/19 20:28: Bedside Glucose (Misc Panel) 229H 01/23/19 20:50: Urine Color YELLOW, Urine Appearance HAZY, Urine pH 5.0, Urine Specific Honor 1.006, Urine Protein NEGATIVE, Urine Glucose (UA) 3+H, Urine Ketones NEGATIVE, Urine Blood 2+H, Urine Nitrite NEGATIVE, Urine Bilirubin NEGATIVE, Urine Urobilinogen 0.2, Urine Leukocyte Esterase NEGATIVE, Urine WBC (Auto) 4H, Urine RBC (Auto) 7H, Urine Hyaline Casts (Auto) 0, Urine Bacteria (Auto) 1+H, Urine Squamous Epithelial Cells 1, Urine Amorphous Sediment SMALLH, Urine Mucus (Auto) SMALL, Urine Sperm (Auto) 01/23/19 23:33: Bedside Glucose (Misc Panel) 209H 01/24/19 04:50: Nucleated Red Blood Cells % (auto) 0.0, Immature Platelet Fraction 7.6, Anion Gap 13, Glomerular Filtration Rate 15.0L, Lactic Acid Level 3.0*H, Blood Urea Nitrogen 50H, Creatinine 3.31H, Sodium Level 133L, Potassium Level 5.7H, Chloride Level 105, Carbon Dioxide Level 15L, Calcium Level 6.0#L, Phosphorus Level 5.9H, Aspartate Amino Transf (AST/SGOT) 206H, Alanine Aminotransferase (ALT/SGPT) 92H, Alkaline Phosphatase 143H, Total Bilirubin 2.2H, Total Protein 5.7L, Albumin 2.0L, Magnesium Level 1.6L, Albumin/Globulin Ratio 0.54L 01/24/19 05:29: Blood Gas Bicarbonate Standard 14.4L, Arterial Blood pH 7.305L, Arterial Blood Partial Pressure CO2 24.7L, Arterial Blood Partial Pressure O2 76.1, Arterial Blood Total CO2 12.8L, Arterial Blood HCO3 12.0L, Arterial Blood Base Excess - 12.7L, Arterial Blood Oxygen Saturation 93.9L CBC/BMP Laboratory Tests 01/24/19 04:50 Red Blood Count 3.35 L, Mean Corpuscular Volume 88.4, Mean Corpuscular Hemoglobin 29.9, Mean Corpuscular Hemoglobin Concent 33.8, Red Cell Distribution Width 16.2 H, Calcium Level 6.0 #L, Phosphorus Level 5.9 H, Aspartate Amino Transf (AST/SGOT) 206 H, Alanine Aminotransferase (ALT/SGPT) 92 H, Alkaline Phosphatase 143 H, Total Bilirubin 2.2 H, Total Protein 5.7 L, Albumin 2.0 L FSBS Laboratory Tests Test 01/23/19 12:17 01/23/19 20:28 01/23/19 23:33 Range/Units Bedside Glucose (Misc Panel) 166 229 209 80-115 MG/DL Microbiology Microbiology 01/24/19 Blood Culture, Received Pending 01/22/19 Blood Culture - Preliminary, Resulted 01/22/19 Blood Culture - Preliminary, Resulted No growth after 24 hours . All specim... Discharge Medications Scheduled Aspirin (Aspirin EC) 81 Mg Tab, 81 MG PO DAILY, (Reported) Atorvastatin Calcium (Atorvastatin Calcium) 80 Mg Tab, 80 MG PO QHS, (Reported) Calcium Carbonate/Vitamin D3 (Calcium 600-Vit D3 800 Tablet) 1 Tab Tab, 1 TAB PO BID, (Reported) Canagliflozin (Invokana) 100 Mg Tablet, 100 MG PO DAILY, (Reported) Chlorthalidone (Chlorthalidone) 25 Mg Tablet, 12.5 MG PO DAILY, (Reported) Fluticasone/Vilanterol (Breo Ellipta 200-25 Mcg INH) 1 Inh Inh, 1 PUFF INH DAILY, (Reported) Gabapentin (Gabapentin) 400 Mg Cap, 400 MG PO TID, (Reported) Insulin Glargine,Hum.rec.anlog (Basaglar Kwikpen U-100) 100 Unit/1 Ml Insuln.pen, 40 UNITS SC DAILY, (Reported) Lidocaine/Prilocaine (Lidocaine-Prilocaine Cream) 2.5%/2.5% Cream..g., 1 DOSE TOP ASDIRECTED Apply dime size to port area. Do not rub in, cover with saran wrap to protect clothing. Lisinopril (Lisinopril) 20 Mg Tab, 20 MG PO DAILY, (Reported) Loratadine (Loratadine) 10 Mg Tab, 10 MG PO DAILY, (Reported) Meloxicam (Meloxicam) 7.5 Mg Tablet, 7.5 MG PO DAILY, (Reported) Metformin HCl (Metformin HCl) 1,000 Mg Tab, 1,000 MG PO BID, (Reported) Montelukast Sodium (Montelukast Sodium) 10 Mg Tab, 10 MG PO QHS, (Reported) Pantoprazole Sodium (Pantoprazole Sodium) 20 Mg Tab, 20 MG PO BID, (Reported) Scheduled PRN Albuterol Sulfate (Ventolin Hfa) 108 Mcg/Act Aer, 2 PUFF INH Q4H PRN for SHORTNESS OF BREATH, (Reported) Cyclobenzaprine HCl (Cyclobenzaprine HCl) 5 Mg Tab, 5 MG PO TID PRN for MUSCLE SPASMS, (Reported) Diphenoxylate HCl/Atropine (Lomotil 2.5-0.025 mg Tablet) 1 Each Tablet, 1 TAB PO QID PRN for DIARRHEA, (Reported) Ondansetron HCl (Ondansetron HCl) 8 Mg Tablet, 8 MG PO Q6H PRN for NAUSEA OR VOMITING Prochlorperazine Maleate (Prochlorperazine Maleate) 10 Mg Tablet, 10 MG PO Q6H PRN for NAUSEA OR VOMITING Allergies Coded Allergies: amoxicillin (Verified Allergy, Intermediate, rash, 01/22/19) clavulanic acid (Verified Allergy, Intermediate, rash, 01/22/19) DELBERT WAY MD Jan 24, 2019 09:11
--- NOTE | 2019-01-24 09:15 | IPNPDOC ---
Text Note Date of Service The patient was seen on 01/24/19. NOTE NOTE I was called to the patient's beside to pronounce that patient Janet Jeong has passed. No spontaneou movements were present. There was no response to verbal or tactile stimuli. Pupils were fixed and dilated. No breath sounds were appreciated over either lung field. No carotic pulses were palpable. No heart sounds were auscultated over entire precordium. Patient pronounced at 8:50am on 01/24/19. Family at bedside. Family declines autopsy. [place] and postmortem services offered. Patients major medical illness was septic shock due to GNR bacteremia due to abdominal source. VS,Fishbone, I+O VS, Fishbone, I+O Laboratory Tests 01/24/19 04:50 Red Blood Count 3.35 L, Mean Corpuscular Volume 88.4, Mean Corpuscular Hemoglobin 29.9, Mean Corpuscular Hemoglobin Concent 33.8, Red Cell Distribution Width 16.2 H, Calcium Level 6.0 #L, Phosphorus Level 5.9 H, Aspartate Amino Transf (AST/SGOT) 206 H, Alanine Aminotransferase (ALT/SGPT) 92 H, Alkaline Phosphatase 143 H, Total Bilirubin 2.2 H, Total Protein 5.7 L, Albumin 2.0 L Vital Signs Date Time Temp Pulse Resp B/P (MAP) Pulse Ox O2 Delivery O2 Flow Rate FiO2 01/24/19 08:30 108.3 117 30 137/57 (83) 90 100 01/24/19 04:24 Ventilator 01/23/19 08:11 3.0 I&O- Last 24 Hours up to 6 AM 01/24/19 06:00 Intake Total 4797 ml Output Total 1750 ml Balance [address] MD Jan 24, 2019 09:15
== END 2019-01-24 12:54 | disposition expired | DRG 660 ==
LOC: EDBD 09:53 → M ED 09:53 → M ED INP 14:04 → M PCU 15:50 → M ICU 01-23 07:52
PROVIDERS: ADMIT Internal Medicine; ATTEND Internal Medicine
PROC: 30233N1 Transfusion of Nonautologous Red Blood Cells into Peripheral Vein, Percutaneous Approach (ICD-10-PCS; 2019-01-22)
PROC: 5A1935Z Respiratory Ventilation, Less than 24 Consecutive Hours (ICD-10-PCS; principal; 2019-01-23)
DX: D61.810 Antineoplastic chemotherapy induced pancytopenia (principal); A41.50 Gram-negative sepsis, unspecified; R65.21 Severe sepsis with septic shock; N17.9 Acute kidney failure, unspecified; E87.2 Acidosis; J44.9 Chronic obstructive pulmonary disease, unspecified; C34.2 Malignant neoplasm of middle lobe, bronchus or lung; E11.65 Type 2 diabetes mellitus with hyperglycemia; E87.5 Hyperkalemia; I12.9 Hypertensive chronic kidney disease with stage 1 through stage 4 chronic kidney disease, or unspecified chronic kidney disease; Z51.5 Encounter for palliative care; Z79.899 Other long term (current) drug therapy; Z79.82 Long term (current) use of aspirin; Z88.0 Allergy status to penicillin; Z88.8 Allergy status to other drugs, medicaments and biological substances; F17.200 Nicotine dependence, unspecified, uncomplicated; N18.9 Chronic kidney disease, unspecified; E78.5 Hyperlipidemia, unspecified